=== PATIENT | male | born 1965 | race American Indian/Alaskan Native ===

== ENCOUNTER 2020-08-16 23:38 | Emergency (ER) | payer MEDICAID, OTHER ==
[2020-08-16] MEDS ORDERED: ALBUTEROL 2.5 MG/3 ML NEBU IH ONE (23:55)
[2020-08-16] MEDS ORDERED: IPRATROPIUM 0.02% NEBU 2.5 ML IH ONE (23:55)
[2020-08-16] MEDS ORDERED: predniSONE 20 MG TAB PO ONE (23:55)
--- NOTE | 2020-08-17 00:02 | Emergency Department Report ---
HPI - General Chief Complaint: Dyspnea/Respdistress Time Seen by Provider: 08/16/20 23:50 - HPI HPI: Room 23 Patient is a 55-year-old male present with a chief complaint of shortness of breath. Patient states he has a history of asthma and approximate 1 hour ago began to flareup. Patient states she developed shortness of breath which is consistent with his asthma. Patient states he uses MDI but it did not help. Patient admits to cough productive of yellow sputum occasionally today. Patient denies history of fever. 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 - Family History Family history: no significant - Social History Smoking Status: Former Smoker (None x1 month) Substance Use Type: None (Denies illicit drug use) - Medications Home Medications: Home Medications Medication Instructions Recorded Confirmed Last Taken Type Albuterol Mdi (or & Nicu Only) 2 puff IH QID PRN #8.5 gram 08/17/20 Unknown Rx [ProAir HFA Inhaler] Albuterol Sulfate [Albuterol 0.63% 0.63 mg IH TID PRN #75 ml 08/17/20 Unknown Rx NEBS] Azithromycin [Zithromax Z-PRIYANKA] 0 mg PO DAILY #6 tab 08/17/20 Unknown Rx Prednisone [predniSONE 10 mg 10 mg PO .TAPER #1 tab.ds.pk 08/17/20 Unknown Rx (6-Day Pack, 21 Tabs)] ED Review of Systems ROS: Stated complaint: TROUBLE BREATHING Other details as noted in HPI Constitutional: denies: fever Eyes: denies: eye pain ENT: denies: throat pain Respiratory: cough, shortness of breath, wheezing Cardiovascular: denies: chest pain Endocrine: no symptoms reported Gastrointestinal: denies: abdominal pain Genitourinary: denies: dysuria Musculoskeletal: denies: back pain Neurological: denies: headache Physical Exam - Physical Exam Physical Exam: GENERAL: The patient is well-developed well-nourished male lying on stretcher not appearing to be in acute distress. [] HEENT: Normocephalic. Atraumatic. Extraocular motions are intact. Patient has moist mucous membranes. NECK: Supple. Trachea midline CHEST/LUNGS: Occasional expiratory wheeze anteriorly. Diminished posteriorly. There is no respiratory distress noted. HEART/CARDIOVASCULAR: Regular. There is no tachycardia. There is no gallop rub or murmur. ABDOMEN: Abdomen is soft, nontender. Patient has normal bowel sounds. There is no abdominal distention. SKIN: There is no rash. There is no edema. There is no diaphoresis. NEURO: The patient is awake, alert, and oriented. The patient is cooperative. The patient has no focal neurologic deficits. The patient has normal speech MUSCULOSKELETAL: There is no evidence of acute injury. ED Course - Reevaluation(s) Reevaluation #1: 08/17/20 01:57 Patient states he feels better ED Medical Decision Making - Radiology Data Radiology results: report reviewed (Chest x-ray), image reviewed (Chest x-ray) interpreted by me: Chest x-ray-no focal infiltrates, no pneumothorax. No foreign body seen [facility] [address] [place] [address] XRay Report Signed Patient: BLAYNE MORGAN MR#: [id number] : 1965 Acct:[id number] Age/Sex: 55 / M ADM Date: 08/16/20 Loc: ED Attending Dr: Ordering Physician: CARROLL DUNN MD Date of Service: 08/16/20 Procedure(s): XR chest 1V ap Accession Number(s): [id number] cc: CARROLL DUNN MD Fluoro Time In Minutes: CHEST 1 VIEW INDICATION / CLINICAL INFORMATION: Shortness of breath, cough. COMPARISON: None available. FINDINGS: SUPPORT DEVICES: None. HEART / MEDIASTINUM: No significant abnormality. LUNGS / PLEURA: No significant pulmonary or pleural abnormality. No pneumothorax. ADDITIONAL FINDINGS: No significant additional findings. IMPRESSION: 1. No acute findings. Signer Name: Katelin Hall MD Signed: 08/17/2020 1:39 AM Workstation Name: [id number] Transcribed By: [facility] Dictated By: Katelin Hall MD Electronically Authenticated By: Katelin Hall MD Signed Date/Time: 08/17/20138 DD/ 7 TD/TT: Print Cancel - Differential Diagnosis Asthma exacerbation, bronchitis Critical care attestation.: If time is entered above; I have spent that time in minutes in the direct care of this critically ill patient, excluding procedure time. ED Disposition Clinical Impression: Acute asthma exacerbation, Bronchitis Disposition: TO HOME OR SELFCARE Is pt being admited?: No Does the pt Need Aspirin: No Condition: Stable Instructions: Chronic Bronchitis (ED), Cough, Adult, [id number], Asthma, Adult Additional Instructions: Return to the emergency department should you develop worsening symptoms, inability to tolerate food or liquids, high fever or any other concerns Prescriptions: Albuterol Sulfate [Albuterol 0.63% NEBS] 0.63 mg IH TID PRN #75 ml PRN Reason: Wheezing Prednisone [predniSONE 10 mg (6-Day Pack, 21 Tabs)] 10 mg PO .TAPER #1 tab.ds.pk Albuterol Mdi (or & Nicu Only) [ProAir HFA Inhaler] 2 puff IH QID PRN #8.5 gram PRN Reason: Shortness Of Breath Azithromycin [Zithromax Z-PRIYANKA] 0 mg PO DAILY #6 tab Referrals: [facility] [Provider Group] - 3-5 Days Time of Disposition: 01:59
--- NOTE | 2020-08-17 01:43 | XRay Report ---
CHEST 1 VIEW INDICATION / CLINICAL INFORMATION: Shortness of breath, cough. COMPARISON: None available. FINDINGS: SUPPORT DEVICES: None. HEART / MEDIASTINUM: No significant abnormality. LUNGS / PLEURA: No significant pulmonary or pleural abnormality. No pneumothorax. ADDITIONAL FINDINGS: No significant additional findings. IMPRESSION: 1. No acute findings. Signer Name: Katelin Hall MD Signed: 08/17/2020 1:39 AM Workstation Name: [id number]
[2020-08-17 03:32] VITALS: BP 168/94
== END 2020-08-17 02:20 | disposition home or self-care (01) ==
LOC: ED 23:38
DX: J45.901 Unspecified asthma with (acute) exacerbation (principal); I10 Essential (primary) hypertension; Z79.899 Other long term (current) drug therapy; Z87.891 Personal history of nicotine dependence; Z98.890 Other specified postprocedural states
CPT/HCPCS: 71045; 94640; 99283; J7512; 94644

== ENCOUNTER 2020-08-28 23:06 | Inpatient (IN) | payer MEDICAID, OTHER ==
[2020-08-28] MEDS ORDERED: IPRATROPIUM 0.02% NEBU 2.5 ML IH ONE (23:16)
[2020-08-28] MEDS ORDERED: ALBUTEROL 2.5 MG/3 ML NEBU IH ONE (23:16)
[2020-08-28] MEDS ORDERED: methylPREDNISolone Sod Succinate 125 MG/2 ML INJ IV ONE (23:16)
[2020-08-28] MEDS ORDERED: MAGNESIUM SULFATE 2 GM/50 ML BAG IV ONE (23:16)
--- NOTE | 2020-08-28 23:25 | Emergency Department Report ---
HPI - General Chief Complaint: Dyspnea/Respdistress Time Seen by Provider: 08/28/20 23:15 - HPI HPI: Room 7 The patient is a 55-year-old male present with a chief complaint of shortness of breath. Patient states today he developed shortness of breath consistent with his asthma. Patient admits to wheezing. Patient was seen by myself approximately 1.5 weeks ago for the same. The patient states he completed his course of antibiotics and steroids. 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 - Family History Family history: no significant - Social History Smoking Status: Unknown if ever smoked Substance Use Type: None - Medications Home Medications: Home Medications Medication Instructions Recorded Confirmed Last Taken Type Albuterol Mdi (or & Nicu Only) 2 puff IH QID PRN #8.5 gram 08/17/20 Unknown Rx [ProAir HFA Inhaler] Albuterol Sulfate [Albuterol 0.63% 0.63 mg IH TID PRN #75 ml 08/17/20 Unknown Rx NEBS] Azithromycin [Zithromax Z-PRIYANKA] 0 mg PO DAILY #6 tab 08/17/20 Unknown Rx Prednisone [predniSONE 10 mg 10 mg PO .TAPER #1 tab.ds.pk 08/17/20 Unknown Rx (6-Day Pack, 21 Tabs)] ED Review of Systems ROS: Stated complaint: ASTHMA;ZENAIDA Other details as noted in HPI Constitutional: no symptoms reported Eyes: denies: eye pain ENT: denies: throat pain Respiratory: shortness of breath, wheezing Cardiovascular: denies: chest pain Endocrine: no symptoms reported Gastrointestinal: denies: abdominal pain Genitourinary: denies: dysuria Musculoskeletal: denies: back pain Neurological: denies: headache Physical Exam - Physical Exam Vital Signs: Vital Signs 08/28/20 23:17 Temperature 98.7 F Pulse Rate 133 H Respiratory 22 Rate Blood Pressure 220/127 [Right] O2 Sat by Pulse 96 Oximetry Physical Exam: GENERAL: The patient is well-developed well-nourished male sitting on stretcher exhibiting increased work of breathing. [] HEENT: Normocephalic. Atraumatic. Extraocular motions are intact. Patient has moist mucous membranes. NECK: Supple. Trachea midline CHEST/LUNGS: Wheezing diffusely. Accessory muscle use HEART/CARDIOVASCULAR: Regular. There is tachycardia. There is no gallop rub or murmur. ABDOMEN: Abdomen is soft, nontender. Patient has normal bowel sounds. There is no abdominal distention. SKIN: There is no rash. There is no edema. There is no diaphoresis. NEURO: The patient is awake, alert, and oriented. The patient is cooperative. The patient has no focal neurologic deficits. The patient has normal speech MUSCULOSKELETAL: There is no evidence of acute injury. ED Course Vital Signs 08/28/20 23:17 Temperature 98.7 F Pulse Rate 133 H Respiratory 22 Rate Blood Pressure 220/127 [Right] O2 Sat by Pulse 96 Oximetry ED Medical Decision Making - Lab Data Result diagrams: 08/29/20 00:06 08/29/20 00:06 Laboratory Tests 08/29/20 08/29/20 00:06 00:06 WBC 9.7 RBC 4.53 Hgb 12.7 Hct 37.7 MCV 83 L MCH 28 MCHC 34 RDW 20.4 H Plt Count 496 H Sodium 140 Potassium 3.9 Chloride 100.8 Carbon Dioxide 24 Anion Gap 19 BUN 16 Creatinine 1.2 Estimated GFR > 60 BUN/Creatinine Ratio 13 Glucose 125 H Calcium 9.5 NT-Pro-B Natriuret Pep 173.2 - Radiology Data Radiology results: report reviewed (Chest x-ray), image reviewed (Chest x-ray) interpreted by me: Chest x-ray-no focal infiltrates, no pneumothorax. No foreign body seen [facility] [address] [place] [address] XRay Report Signed Patient: BLAYNE MORGAN MR#: [id number] : 1965 Acct:[id number] Age/Sex: 55 / M ADM Date: 08/28/20 Loc: ED Attending Dr: Ordering Physician: CARROLL DUNN MD Date of Service: 08/28/20 Procedure(s): XR chest 1V ap Accession Number(s): [id number] cc: CARROLL DUNN MD Fluoro Time In Minutes: CHEST 1 VIEW 08/28/2020 10:56 PM INDICATION / CLINICAL INFORMATION: Shortness of breath. COMPARISON: One view of the chest from 08/17/2020. FINDINGS: SUPPORT DEVICES: None. HEART / MEDIASTINUM: No significant abnormality. LUNGS / PLEURA: Clear lungs. No significant pleural effusion. No pneumothorax. ADDITIONAL FINDINGS: No significant additional findings. IMPRESSION: 1. No acute abnormality of the chest. Signer Name: Quincy Gloria MD Signed: 08/29/2020 12:04 AM Workstation Name: [id number] Transcribed By: [place] Dictated By: Quincy Gloria MD Electronically Authenticated By: Quincy Gloria MD Signed Date/Time: 08/29/203 DD/ TD/TT: Print Cancel - Differential Diagnosis Acute asthma exacerbation Critical care attestation.: If time is entered above; I have spent that time in minutes in the direct care of this critically ill patient, excluding procedure time. ED Disposition Clinical Impression: Acute asthma exacerbation, Shortness of breath Disposition: OP ADMIT IP TO THIS HOSP Is pt being admited?: Yes Does the pt Need Aspirin: No Condition: Fair Referrals: PRIMARY CARE, [Primary Care Provider] - 3-5 Days Time of Disposition: 00:58 (Hospitalist paged (Dr Mcconnell))
[2020-08-29] MEDS ORDERED: IPRATROPIUM 0.02% NEBU 2.5 ML IH ONE (00:03)
[2020-08-29] MEDS ORDERED: ALBUTEROL 2.5 MG/3 ML NEBU IH ONE ×3 (00:03→15:17)
--- NOTE | 2020-08-29 00:09 | XRay Report ---
CHEST 1 VIEW 08/28/2020 10:56 PM INDICATION / CLINICAL INFORMATION: Shortness of breath. COMPARISON: One view of the chest from 08/17/2020. FINDINGS: SUPPORT DEVICES: None. HEART / MEDIASTINUM: No significant abnormality. LUNGS / PLEURA: Clear lungs. No significant pleural effusion. No pneumothorax. ADDITIONAL FINDINGS: No significant additional findings. IMPRESSION: 1. No acute abnormality of the chest. Signer Name: Quincy Gloria MD Signed: 08/29/2020 12:04 AM Workstation Name: [id number]
[2020-08-29 00:26] LABS: Hematocrit 37.7 % (35.5-45.6); Hemoglobin 12.7 gm/dl (11.8-15.2); Mean Corpuscular HGB Conc 34 % (32-34); Mean Corpuscular Volume 83 fl (84-94); Platelet Count 496 K/mm3 (140-440); Red Blood Count 4.53 M/mm3 (3.65-5.03)
[2020-08-29 00:31] LABS: Red Cell Distribution Width 20.4 % (13.2-15.2)
[2020-08-29 00:46] LABS: BUN/Creatinine Ratio 13; Blood Urea Nitrogen 16 mg/dL (9-20); Calcium 9.5 mg/dL (8.4-10.2); Hemolysis Index 3
[2020-08-29] MEDS ORDERED: ONDANSETRON 4 MG/2 ML INJ IV PRN (01:20)
[2020-08-29] MEDS ORDERED: MAGNESIUM HYDROXIDE (MOM) ORAL LIQD UDC PO PRN (01:20)
[2020-08-29] MEDS ORDERED: ACETAMINOPHEN 325 MG TAB PO PRN (01:20)
--- NOTE | 2020-08-29 01:30 | History and Physical Report ---
History of Present Illness Date of examination: 08/29/20 Date of admission: 08/29/2020 Chief complaint: Shortness of breath History of present illness: 55-year-old -Malawian male with known history of of asthma and hypertension presents to the emergency room today complaining of shortness of breath. Patient denies any chest pain, denies any fever or chills, no nausea vomiting, no diarrhea, no abdominal pain. Denies any headache or dizziness and denies any diaphoresis. He denies any sick contacts and no recent travel. Denies any contact with anyone with COVID-19. Upon arrival in the emergency room today patient was found to be wheezing and was having some labored breathing. He was subsequently placed on BiPAP. He continued to have increased work of breathing while in the emergency room despite the nebulizing treatments. Work-up in the emergency room today labs were unremarkable. Chest x-ray did not show any acute findings.. Patient has been admitted for asthma exacerbation. Past History Past Medical History: hypertension, other (Asthma) Past Surgical History: Other (Left lower extremity bypass surgery) Social history: smoking (Current daily smoker) Family history: no significant family history Medications and Allergies Allergies Allergy/AdvReac Type Severity Reaction Status Date / Time No Known Allergies Allergy Verified 08/16/20 23:42 Home Medications Medication Instructions Recorded Confirmed Last Taken Type Albuterol Mdi (or & Nicu Only) 2 puff IH QID PRN #8.5 gram 08/17/20 Unknown Rx [ProAir HFA Inhaler] Albuterol Sulfate [Albuterol 0.63% 0.63 mg IH TID PRN #75 ml 08/17/20 Unknown Rx NEBS] Azithromycin [Zithromax Z-PRIYANKA] 0 mg PO DAILY #6 tab 08/17/20 Unknown Rx Prednisone [predniSONE 10 mg 10 mg PO .TAPER #1 tab.ds.pk 08/17/20 Unknown Rx (6-Day Pack, 21 Tabs)] Review of Systems Constitutional: no fever, no chills Ears, nose, mouth and throat: no nasal congestion, no sore throat Cardiovascular: no chest pain, no orthopnea, no palpitations Respiratory: cough, cough with sputum, shortness of breath, wheezing Gastrointestinal: no nausea, no vomiting, no diarrhea Genitourinary Male: no dysuria, no hematuria, no nocturia, no polyuria Musculoskeletal: no neck pain, no low back pain Integumentary: no rash, no pruritis Neurological: no headaches, no confusion Psychiatric: no anxiety, no depression Endocrine: no polyphagia, no polydipsia, no polyuria, no nocturia Exam - Constitutional Vitals: Temp Pulse Resp BP Pulse Ox 98.7 F 133 H 36 H 151/111 98 08/28/20 23:17 08/29/20 00:46 08/29/20 00:46 08/28/20 23:58 08/29/20 00:46 General appearance: Present: mild distress, well-nourished - EENT Eyes: Present: PERRL, EOM intact. Absent: scleral icterus ENT: hearing intact, clear oral mucosa, dentition normal - Neck Neck: Present: supple, normal ROM - Respiratory Respiratory effort: labored Respiratory: bilateral: wheezing - Cardiovascular Rhythm: regular Heart Sounds: Present: S1 & S2. Absent: systolic murmur, diastolic murmur, rub, click - Extremities Extremities: no ischemia, pulses intact, pulses symmetrical, No edema, normal temperature, normal color, Full ROM Peripheral Pulses: within normal limits - Abdominal General gastrointestinal: Present: soft, non-tender, non-distended. Absent: mass - Integumentary Integumentary: Present: clear, warm, dry, rash, normal turgor - Musculoskeletal Musculoskeletal: strength equal bilaterally - Psychiatric Psychiatric: appropriate mood/affect, intact judgment & insight, memory intact, cooperative - Neurologic Neurologic: CNII-XII intact, no focal deficits, moves all extremities Results - Labs CBC & Chem 7: 08/29/20 00:06 08/29/20 00:06 Labs: Abnormal lab results 08/29/20 08/29/20 Range/Units 00:06 00:06 MCV 83 L (84-94) fl RDW 20.4 H (13.2-15.2) % Plt Count 496 H (140-440) K/mm3 Glucose 125 H (75-100) mg/dL Assessment and Plan - Patient Problems (1) Acute asthma exacerbation Current Visit: Yes Status: Acute Plan to address problem: Patient placed on nebulizing treatments and IV steroid. We will keep O2 saturation greater or equal to 92%. (2) Hypertension Current Visit: Yes Status: Acute Plan to address problem: We will resume routine home medications and monitor vital signs closely. (3) DVT prophylaxis Current Visit: Yes Status: Acute Plan to address problem: Patient placed on subcutaneous Lovenox. (4) Full code status Current Visit: Yes Status: Acute Plan to address problem: Patient is full code.
[2020-08-29] MEDS: IPRATROPIUM/ALBUTEROL SULFATE 3 ML AMPUL.NEB IH SCH ×6 (03:24→20:09)
[2020-08-29 03:38] LABS: Anisocytosis 1+; Band Neutrophils # (Manual) 0.1 K/mm3; Total Cells Counted 100
[2020-08-29 03:39] LABS: Platelet Estimate Consistent w Auto
[2020-08-29] MEDS: ALPRAZolam 0.25 MG TAB PO SCH ×3 (03:50→22:08)
[2020-08-29] MEDS: MORPHINE 2 MG/1 ML INJ IV PRN ×5 (04:11→20:36)
[2020-08-29] MEDS ORDERED: methylPREDNISolone Sod Succinate 40 MG/1 ML INJ IV SCH (06:00)
[2020-08-29] MEDS: BUDESONIDE 0.5 MG/2 ML NEBU IH SCH ×2 (08:20→20:09)
[2020-08-29] MEDS ORDERED: ALBUTEROL 2.5 MG/3 ML NEBU IH SCH (10:21)
--- NOTE | 2020-08-29 10:22 | Progress Note ---
Assessment and Plan Assessment and plan: #Acute hypoxic respiratory failure Continue BiPAP Wean as tolerated #Acute asthma exacerbation Increase methylprednisolone to 80 mg every 6 Albuterol every 4 scheduled Continue oxygen supplementation Pulmonology consulted Respiratory therapy assess and treat #Hypertension Continue home medications #DVT prophylaxis-heparin/Lovenox #Disposition-Home when stable for discharge History Interval history: 55-year-old -Marshallese male with known history of of asthma and hypertension presents to the emergency room today complaining of shortness of breath. Patient denies any chest pain, denies any fever or chills, no nausea vomiting, no diarrhea, no abdominal pain. Denies any headache or dizziness and denies any diaphoresis. He denies any sick contacts and no recent travel. Denies any contact with anyone with COVID-19. Upon arrival in the emergency room today patient was found to be wheezing and was having some labored breathing. He was subsequently placed on BiPAP. He continued to have increased work of breathing while in the emergency room despite the nebulizing treatments. Work-up in the emergency room today labs were unremarkable. Chest x-ray did not show any acute findings.. Patient has been admitted for asthma exacerbation. Hospital course 08/29. Patient seen and examined at bedside this morning. Patient is still wheezing. Remains on BiPAP. Increase steroids to 80 mg every 6. Pulmonology consulted. Started patient on albuterol every 4 scheduled. May need to transfer to [facility] if no improve in the next 3 to 4 hours. Hospitalist Physical - Physical exam Narrative exam: VITAL SIGNS: Reviewed. GENERAL: Awake HEAD: No signs of head trauma. EYES: Pupils are equal. Extraocular motions intact. MOUTH: Oropharynx is normal. NECK: No adenopathy, no JVD. CHEST: Diminished breath sounds bilaterally, diffuse expiratory wheezes CARDIAC: normal S1 and S2, without murmurs, gallops, or rubs. ABDOMEN: Soft, non tender and non distended. No rebound or guarding, and no masses palpated. Bowel Sounds normal. MUSCULOSKELETAL: No edema NEUROLOGIC EXAM: Alert and oriented x3. No focal neurologic deficits SKIN: No obvious lesions - Constitutional Vitals: Temp Pulse Resp BP Pulse Ox 98.4 F 101 H 36 H 194/115 99 08/29/20 04:47 08/29/20 08:21 08/29/20 08:21 08/29/20 04:47 08/29/20 08:21 Results - Labs CBC & Chem 7: 08/29/20 00:06 08/29/20 00:06 Labs: Laboratory Last Values WBC 9.7 K/mm3 (4.5-11.0) 08/29/20 00:06 RBC 4.53 M/mm3 (3.65-5.03) 08/29/20 00:06 Hgb 12.7 gm/dl (11.8-15.2) 08/29/20 00:06 Hct 37.7 % (35.5-45.6) 08/29/20 00:06 MCV 83 fl (84-94) L 08/29/20 00:06 MCH 28 pg (28-32) 08/29/20 00:06 MCHC 34 % (32-34) 08/29/20 00:06 RDW 20.4 % (13.2-15.2) H 08/29/20 00:06 Plt Count 496 K/mm3 (140-440) H 08/29/20 00:06 Add Manual Diff Complete 08/29/20 00:06 Total Counted 100 08/29/20 00:06 Seg Neuts % (Manual) 85.0 % (40.0-70.0) H 08/29/20 00:06 Band Neutrophils % 1.0 % 08/29/20 00:06 Lymphocytes % (Manual) 12.0 % (13.4-35.0) L 08/29/20 00:06 Monocytes % (Manual) 2.0 % (0.0-7.3) 08/29/20 00:06 Nucleated RBC % Not Reportable 08/29/20 00:06 Seg Neutrophils # Man 8.2 K/mm3 (1.8-7.7) H 08/29/20 00:06 Band Neutrophils # 0.1 K/mm3 08/29/20 00:06 Lymphocytes # (Manual) 1.2 K/mm3 (1.2-5.4) 08/29/20 00:06 Abs React Lymphs (Man) 0.0 K/mm3 08/29/20 00:06 Monocytes # (Manual) 0.2 K/mm3 (0.0-0.8) 08/29/20 00:06 Eosinophils # (Manual) 0.0 K/mm3 (0.0-0.4) 08/29/20 00:06 Basophils # (Manual) 0.0 K/mm3 (0.0-0.1) 08/29/20 00:06 Metamyelocytes # 0.0 K/mm3 08/29/20 00:06 Myelocytes # 0.0 K/mm3 08/29/20 00:06 Promyelocytes # 0.0 K/mm3 08/29/20 00:06 Blast Cells # 0.0 K/mm3 08/29/20 00:06 WBC Morphology Not Reportable 08/29/20 00:06 Hypersegmented Neuts Not Reportable 08/29/20 00:06 Hyposegmented Neuts Not Reportable 08/29/20 00:06 Hypogranular Neuts Not Reportable 08/29/20 00:06 Smudge Cells Not Reportable 08/29/20 00:06 Toxic Granulation Not Reportable 08/29/20 00:06 Toxic Vacuolation Not Reportable 08/29/20 00:06 Dohle Bodies Not Reportable 08/29/20 00:06 Pelger-Huet Anomaly Not Reportable 08/29/20 00:06 Galo Rods Not Reportable 08/29/20 00:06 Platelet Estimate Consistent w auto 08/29/20 00:06 Clumped Platelets Not Reportable 08/29/20 00:06 Plt Clumps, EDTA Not Reportable 08/29/20 00:06 Large Platelets Not Reportable 08/29/20 00:06 Giant Platelets Not Reportable 08/29/20 00:06 Platelet Satelliting Not Reportable 08/29/20 00:06 Plt Morphology Comment Not Reportable 08/29/20 00:06 RBC Morphology Not Reportable 08/29/20 00:06 Dimorphic RBCs Not Reportable 08/29/20 00:06 Polychromasia Not Reportable 08/29/20 00:06 Hypochromasia Not Reportable 08/29/20 00:06 Poikilocytosis Not Reportable 08/29/20 00:06 Anisocytosis 1+ 08/29/20 00:06 Microcytosis Not Reportable 08/29/20 00:06 Macrocytosis Not Reportable 08/29/20 00:06 Spherocytes Not Reportable 08/29/20 00:06 Pappenheimer Bodies Not Reportable 08/29/20 00:06 Sickle Cells Not Reportable 08/29/20 00:06 Target Cells Not Reportable 08/29/20 00:06 Tear Drop Cells Not Reportable 08/29/20 00:06 Ovalocytes Not Reportable 08/29/20 00:06 Helmet Cells Not Reportable 08/29/20 00:06 Nieto-Veblen Bodies Not Reportable 08/29/20 00:06 [place] Rings Not Reportable 08/29/20 00:06 [place] Cells Not Reportable 08/29/20 00:06 Bite Cells Not Reportable 08/29/20 00:06 Crenated Cell Not Reportable 08/29/20 00:06 Elliptocytes Not Reportable 08/29/20 00:06 Acanthocytes (Spur) Not Reportable 08/29/20 00:06 Rouleaux Not Reportable 08/29/20 00:06 Hemoglobin C Crystals Not Reportable 08/29/20 00:06 Schistocytes Not Reportable 08/29/20 00:06 Malaria parasites Not Reportable 08/29/20 00:06 Lobo Bodies Not Reportable 08/29/20 00:06 Hem Pathologist Commnt No 08/29/20 00:06 Sodium 140 mmol/L (137-145) 08/29/20 00:06 Potassium 3.9 mmol/L (3.6-5.0) 08/29/20 00:06 Chloride 100.8 mmol/L (98-107) 08/29/20 00:06 Carbon Dioxide 24 mmol/L (22-30) 08/29/20 00:06 Anion Gap 19 mmol/L 08/29/20 00:06 BUN 16 mg/dL (9-20) 08/29/20 00:06 Creatinine 1.2 mg/dL (0.8-1.3) 08/29/20 00:06 Estimated GFR > 60 ml/min 08/29/20 00:06 BUN/Creatinine Ratio 13 % 08/29/20 00:06 Glucose 125 mg/dL (75-100) H 08/29/20 00:06 Calcium 9.5 mg/dL (8.4-10.2) 08/29/20 00:06 NT-Pro-B Natriuret Pep 173.2 pg/mL (0-900) 08/29/20 00:06 Active Medications - Current Medications Current Medications: Generic Name Dose Route Start Last Admin Trade Name Freq PRN Reason Stop Dose Admin Acetaminophen 650 mg 08/29/20 01:20 Acetaminophen 325 Mg Tab PO Q4H PRN Pain MILD(1-3)/Fever >100.5/ARRIAZA Albuterol 2.5 mg 08/29/20 10:21 Albuterol 2.5 Mg/3 Ml Nebu IH Q4HRT CAROLE Albuterol/Ipratropium 1 ampul 08/29/20 02:00 08/29/20 08:16 Ipratropium/Albuterol Sulfate 3 Ml Ampul.Neb IH 1 ampul Q6HRT [facility] Administration Alprazolam 0.25 mg 08/29/20 03:50 08/29/20 03:50 Alprazolam 0.25 Mg Tab PO 0.25 mg Q12HR CAROLE Administration Budesonide 0.5 mg 08/29/20 08:00 08/29/20 08:20 Budesonide 0.5 Mg/2 Ml Nebu IH 0.5 mg Q12HRT CAROLE Administration Enoxaparin Sodium 40 mg 08/29/20 22:00 Enoxaparin 40 Mg/0.4 Ml Inj SUB-Q QDAY@2200 [facility] Protocol Magnesium Hydroxide 30 ml 08/29/20 01:20 Magnesium Hydroxide (Mom) Oral Liqd Udc PO Q4H PRN Constipation Methylprednisolone Sodium Succinate 80 mg 08/29/20 11:00 Methylprednisolone Sod Succinate 40 Mg/1 Ml Inj IV Q6HR [facility] Morphine Sulfate 2 mg 08/29/20 01:20 08/29/20 08:16 Morphine 2 Mg/1 Ml Inj IV 2 mg Q4H PRN Administration Pain, Moderate (4-6) Ondansetron HCl 4 mg 08/29/20 01:20 Ondansetron 4 Mg/2 Ml Inj IV Q8H PRN Nausea And Vomiting Sodium Chloride 10 ml 08/29/20 10:00 Sodium Chloride 0.9% 10 Ml Flush Syringe IV BID CAROLE Sodium Chloride 10 ml 08/29/20 01:20 Sodium Chloride 0.9% 10 Ml Flush Syringe IV PRN PRN LINE FLUSH
--- NOTE | 2020-08-29 11:48 | Consultation ---
History of Present Illness History of present illness: This is apatient who resides in [facility] and is here to visit son. He had increased in sob. He was seen in er earlier this month. He was treated w steroids and antibx. He did slightly better but came in with worsening sob and cough. He was admitted and is presently on BIPAP. He reports that he has never been intubated. He smoked 1ppd at peak consumption, now only 1/2 ppd. No leg swelling. Past History Past Medical History: COPD, hypertension, other (Asthma) Past Surgical History: No surgical history, Other (Left lower extremity bypass surgery) Social history: lives with family, smoking (Current daily smoker) Family history: no significant family history Medications and Allergies Allergies Allergy/AdvReac Type Severity Reaction Status Date / Time No Known Allergies Allergy Verified 08/16/20 23:42 Home Medications Medication Instructions Recorded Confirmed Last Taken Type Albuterol Mdi (or & Nicu Only) 2 puff IH QID PRN #8.5 gram 08/17/20 Unknown Rx [ProAir HFA Inhaler] Albuterol Sulfate [Albuterol 0.63% 0.63 mg IH TID PRN #75 ml 08/17/20 Unknown Rx NEBS] Azithromycin [Zithromax Z-PRIYANKA] 0 mg PO DAILY #6 tab 08/17/20 Unknown Rx Prednisone [predniSONE 10 mg 10 mg PO .TAPER #1 tab.ds.pk 08/17/20 Unknown Rx (6-Day Pack, 21 Tabs)] ALPRAZolam [Xanax TAB] 0.25 mg PO BID PRN 08/29/20 08/29/20 Unknown History Clopidogrel [Plavix] 08/29/20 Unknown History Vitamin D3 08/29/20 Unknown History lisinopriL [Zestril TAB] 40 mg PO QDAY 08/29/20 08/29/20 Unknown History Active Meds: Active Medications Acetaminophen (Acetaminophen 325 Mg Tab) 650 mg PO Q4H PRN PRN Reason: Pain MILD(1-3)/Fever >100.5/ARRIAZA Albuterol/Ipratropium (Ipratropium/Albuterol Sulfate 3 Ml Ampul.Neb) 1 ampul IH Q6HRT CAROLE Last Admin: 08/29/20 08:16 Dose: 1 ampul Documented by: Alprazolam (Alprazolam 0.25 Mg Tab) 0.25 mg PO Q12HR [facility] Last Admin: 08/29/20 10:33 Dose: 0.25 mg Documented by: Budesonide (Budesonide 0.5 Mg/2 Ml Nebu) 0.5 mg IH Q12HRT [facility] Last Admin: 08/29/20 08:20 Dose: 0.5 mg Documented by: Enoxaparin Sodium (Enoxaparin 40 Mg/0.4 Ml Inj) 40 mg SUB-Q QDAY@2200 [facility]; Protocol Magnesium Hydroxide (Magnesium Hydroxide (Mom) Oral Liqd Udc) 30 ml PO Q4H PRN PRN Reason: Constipation Methylprednisolone Sodium Succinate (Methylprednisolone Sod Succinate 125 Mg/2 Ml Inj) 80 mg IV Q6HR CAROLE Morphine Sulfate (Morphine 2 Mg/1 Ml Inj) 2 mg IV Q4H PRN PRN Reason: Pain, Moderate (4-6) Last Admin: 08/29/20 08:16 Dose: 2 mg Documented by: Ondansetron HCl (Ondansetron 4 Mg/2 Ml Inj) 4 mg IV Q8H PRN PRN Reason: Nausea And Vomiting Sodium Chloride (Sodium Chloride 0.9% 10 Ml Flush Syringe) 10 ml IV BID [facility] Last Admin: 08/29/20 10:33 Dose: 10 ml Documented by: Sodium Chloride (Sodium Chloride 0.9% 10 Ml Flush Syringe) 10 ml IV PRN PRN PRN Reason: LINE FLUSH Review of Systems Respiratory: cough, shortness of breath, other (questionable pleurisy) Physical Examination Vital signs: Vital Signs Resp Pulse Ox 14 98 08/28/20 22:02 08/28/20 22:02 General appearance: other (on bipap mild distress) ENT: oropharynx moist Neck: supple Ascultation: Bilateral: diminished breath sounds, wheezes Results - Laboratory Findings CBC and BMP: 08/29/20 00:06 08/29/20 00:06 Abnormal lab findings: Abnormal Labs 08/29/20 08/29/20 00:06 00:06 MCV 83 L RDW 20.4 H Plt Count 496 H Seg Neuts % (Manual) 85.0 H Lymphocytes % (Manual) 12.0 L Seg Neutrophils # Man 8.2 H Glucose 125 H - Diagnostic Findings Chest x-ray: report reviewed, image reviewed Assessment and Plan - Patient Problems (1) Acute bronchitis Current Visit: Yes Status: Acute (2) Acute asthma exacerbation Current Visit: Yes Status: Acute (3) Hypertension Current Visit: Yes Status: Acute (4) Shortness of breath Current Visit: Yes Status: Acute
[2020-08-29] MEDS ORDERED: methylPREDNISolone Sod Succinate 125 MG/2 ML INJ IV SCH (12:00)
[2020-08-29] MEDS ORDERED: SODIUM CHLORIDE 0.9% 1000 ML 1,000 ML IV SCH (12:00)
[2020-08-29] MEDS ORDERED: ENOXAPARIN 80 MG/0.8 ML INJ SUB-Q ONE (13:00)
[2020-08-29] MEDS ORDERED: HEPARIN 10,000 UNITS/10 ML VIAL IV PRN (17:36)
[2020-08-29] MEDS: methylPREDNISolone Sod Succinate 125 MG/2 ML INJ IV SCH (18:00)
[2020-08-29] MEDS ORDERED: FUROSEMIDE 40 MG/4 ML INJ IV ONE (18:39)
[2020-08-29 19:13] LABS: C-Reactive Protein 1.5 mg/dL (0.00-1.30)
[2020-08-29 19:14] LABS: INR 1.08 (0.87-1.13)
[2020-08-29 19:15] LABS: Partial Thromboplastin Time 34.5 Sec. (24.2-36.6)
[2020-08-29] MEDS ORDERED: hydrALAZINE 20 MG/1 ML INJ IV PRN (19:53)
[2020-08-29] MEDS: ARFORMOTEROL 15 MCG/2 ML NEBU IH SCH (20:10)
[2020-08-29] MEDS ORDERED: ENOXAPARIN 40 MG/0.4 ML INJ SUB-Q SCH (22:00)
[2020-08-29] MEDS: LISINOPRIL 40 MG TAB PO SCH (22:08)
[2020-08-30] MEDS ORDERED: IPRATROPIUM/ALBUTEROL SULFATE 3 ML AMPUL.NEB IH SCH
[2020-08-30] MEDS ORDERED: dilTIAZem 25 MG/5 ML INJ IV ONE (00:15)
[2020-08-30] MEDS: MORPHINE 2 MG/1 ML INJ IV PRN ×5 (00:36→21:29)
[2020-08-30] MEDS: methylPREDNISolone Sod Succinate 125 MG/2 ML INJ IV SCH ×4 (00:38→17:40)
[2020-08-30] MEDS: IPRATROPIUM/ALBUTEROL SULFATE 3 ML AMPUL.NEB IH SCH ×2 (04:05→07:45)
[2020-08-30] MEDS ORDERED: ALBUTEROL 2.5 MG/3 ML NEBU IH ONE ×2 (06:24→06:51)
[2020-08-30] MEDS: hydrALAZINE 25 MG TAB PO SCH ×3 (07:28→21:29)
--- NOTE | 2020-08-30 07:29 | Event Note ---
Date: 08/30/20 called by respiratory therapist that patient Stephen has severe shortness of breath while on BIPAP patient was admitted with SOB and asthma exacerbation. patient has Hx of intubation. Patient 02 sat is stable on BIPAP but patient continue to have severe SOB. Patient is transfered to ICU for closed monitoring. Supervisor Cereal Consulted. patient also has elevated blood pressure. Patient started on antihypertensive and PRN IV hydralazine.
[2020-08-30] MEDS: ARFORMOTEROL 15 MCG/2 ML NEBU IH SCH (07:45)
[2020-08-30] MEDS: BUDESONIDE 0.5 MG/2 ML NEBU IH SCH ×2 (07:45→21:10)
[2020-08-30 07:59] LABS: Basophils % (Auto) 0.1 % (0.0-1.8); Hematocrit 41.3 % (35.5-45.6); Hemoglobin 13.9 gm/dl (11.8-15.2); Lymphocytes # (Auto) 0.7 K/mm3 (1.2-5.4); Lymphocytes % (Auto) 7.1 % (13.4-35.0); Mean Corpuscular HGB Conc 34 % (32-34); Mean Corpuscular Volume 84 fl (84-94); Monocytes # (Auto) 0.5 K/mm3 (0.0-0.8); Platelet Count 560 K/mm3 (140-440); Red Cell Distribution Width 19.8 % (13.2-15.2)
[2020-08-30 08:05] LABS: INR 1.09 (0.87-1.13)
[2020-08-30 08:18] LABS: BUN/Creatinine Ratio 31; Blood Urea Nitrogen 34 mg/dL (9-20); Calcium 9.6 mg/dL (8.4-10.2); Hemolysis Index 0
--- NOTE | 2020-08-30 08:54 | XRay Report ---
CHEST 1 VIEW 08/30/2020 7:41 AM INDICATION / CLINICAL INFORMATION: Hypoxia. COMPARISON: 08/28/2020 FINDINGS: SUPPORT DEVICES: None. HEART / MEDIASTINUM: Stable. LUNGS / PLEURA: No significant pulmonary or pleural abnormality. No pneumothorax. ADDITIONAL FINDINGS: No significant additional findings. IMPRESSION: 1. No acute findings. No significant interval change since 08/28/2020 Signer Name: Gary Heaton MD Signed: 08/30/2020 8:50 AM Workstation Name: [email or web address]
[2020-08-30 09:35] LABS: Hematocrit 30.3 % (35.5-45.6); Hemoglobin 10.1 gm/dl (11.8-15.2)
[2020-08-30] MEDS: LISINOPRIL 40 MG TAB PO SCH (09:38)
[2020-08-30] MEDS: HEPARIN/ 0.45% NACL DRIP 25,000 UNIT/500 ML BAG IV SCH (09:38)
[2020-08-30] MEDS: ALPRAZolam 0.25 MG TAB PO SCH (09:38)
[2020-08-30] MEDS ORDERED: METOPROLOL TARTRATE 50 MG TAB PO SCH (10:00)
--- NOTE | 2020-08-30 10:02 | Progress Note ---
Assessment and Plan Assessment and plan: #Acute hypoxic respiratory failure Continue BiPAP #Acute asthma exacerbation Remains on BiPAP Continue methylprednisolone Continue albuterol Continue oxygen supplementation Pulmonology recommendations appreciated Respiratory therapy assess and treat Chest x-ray negative for any acute pathology Discussed with stand grinder #Elevated D-dimer Start empirically on heparin drip for possible PE as he cannot get CT PE due to him being on BiPAP Ultrasound lower extremity Doppler pending #Hypertension Started on IV medications Continue to monitor closely #Right inguinal hernia Complains of right inguinal hernia pain No signs of bowel obstruction Surgery consulted. #DVT prophylaxis-on heparin drip for possible PE #Disposition-Home when stable for discharge Critical care statement The high probability OF a clinically significant sudden or life-threatening deterioration of the cardiorespiratory system and endocrine system required my full and direct attention, intervention and postoperative management. The aggregate critical care time was 40 minutes. The time is in addition to time spent performing reported procedures but includes the followin: Data review and interpretation 2: Patient assessment and monitoring of vital signs 3: Documentation 4:: Medication orders and management Advance Directives: Yes (Full code) History Interval history: 55-year-old -[place] male with known history of of asthma and hy pertension presents to the emergency room today complaining of shortness of breath. Patient denies any chest pain, denies any fever or chills, no nausea vomiting, no diarrhea, no abdominal pain. Denies any headache or dizziness and denies any diaphoresis. He denies any sick contacts and no recent travel. Denies any contact with anyone with COVID-19. Upon arrival in the emergency room today patient was found to be wheezing and was having some labored breathing. He was subsequently placed on BiPAP. He continued to have increased work of breathing while in the emergency room despite the nebulizing treatments. Work-up in the emergency room today labs were unremarkable. Chest x-ray did not show any acute findings.. Patient has been admitted for asthma exacerbation. Hospital course 08/29. Patient seen and examined at bedside this morning. Patient is still wheezing. Remains on BiPAP. Increase steroids to 80 mg every 6. Pulmonology consulted. Started patient on albuterol every 4 scheduled. May need to transfer to [facility] if no improve in the next 3 to 4 hours. 08/30. Still remains on BiPAP. Remains on bronchodilators and Solu-Medrol 100 q. 6. Blood pressure elevated so has been started on IV blood pressure medications. Pulmonology is following. Patient may need intubation if not improved. Discussed with stand grinder this a.m. He complains of right inguinal pain. Will consult surgery for evaluation. He has no signs of bowel obstruction Hospitalist Physical - Physical exam Narrative exam: VITAL SIGNS: Reviewed. GENERAL: Awake HEAD: No signs of head trauma. EYES: Pupils are equal. Extraocular motions intact. MOUTH: Oropharynx is normal. NECK: No adenopathy, no JVD. CHEST: Diminished breath sounds bilaterally, some wheezes bilaterally CARDIAC: normal S1 and S2, without murmurs, gallops, or rubs. ABDOMEN: Soft, non tender and non distended. No rebound or guarding, and no masses palpated. Bowel Sounds normal. MUSCULOSKELETAL: No edema NEUROLOGIC EXAM: Alert and oriented x3. No focal neurologic deficits SKIN: No obvious lesions - Constitutional Vitals: Temp Pulse Resp BP Pulse Ox 98.9 F 132 H 41 H 135/53 97 08/29/20 22:46 08/30/20 09:38 08/30/20 08:55 08/30/20 09:38 08/30/20 08:55 Results - Labs CBC & Chem 7: 08/30/20 11:25 08/30/20 07:10 Labs: Laboratory Last Values WBC 10.3 K/mm3 (4.5-11.0) 08/30/20 07:10 RBC 4.90 M/mm3 (3.65-5.03) 08/30/20 07:10 Hgb 10.1 gm/dl (11.8-15.2) L D 08/30/20 08:30 Hct 30.3 % (35.5-45.6) L D 08/30/20 08:30 MCV 84 fl (84-94) 08/30/20 07:10 MCH 28 pg (28-32) 08/30/20 07:10 MCHC 34 % (32-34) 08/30/20 07:10 RDW 19.8 % (13.2-15.2) H 08/30/20 07:10 Plt Count 84 K/mm3 (140-440) L 08/30/20 08:30 Lymph % (Auto) 7.1 % (13.4-35.0) L 08/30/20 07:10 [place] % (Auto) 5.0 % (0.0-7.3) 08/30/20 07:10 Eos % (Auto) 0.0 % (0.0-4.3) 08/30/20 07:10 Baso % (Auto) 0.1 % (0.0-1.8) 08/30/20 07:10 Lymph # (Auto) 0.7 K/mm3 (1.2-5.4) L 08/30/20 07:10 [place] # (Auto) 0.5 K/mm3 (0.0-0.8) 08/30/20 07:10 Eos # (Auto) 0.0 K/mm3 (0.0-0.4) 08/30/20 07:10 Baso # (Auto) 0.0 K/mm3 (0.0-0.1) 08/30/20 07:10 Add Manual Diff Complete 08/29/20 00:06 Total Counted 100 08/29/20 00:06 Seg Neutrophils % 87.8 % (40.0-70.0) H 08/30/20 07:10 Seg Neuts % (Manual) 85.0 % (40.0-70.0) H 08/29/20 00:06 Band Neutrophils % 1.0 % 08/29/20 00:06 Lymphocytes % (Manual) 12.0 % (13.4-35.0) L 08/29/20 00:06 Monocytes % (Manual) 2.0 % (0.0-7.3) 08/29/20 00:06 Nucleated RBC % Not Reportable 08/29/20 00:06 Seg Neutrophils # 9.0 K/mm3 (1.8-7.7) H 08/30/20 07:10 Seg Neutrophils # Man 8.2 K/mm3 (1.8-7.7) H 08/29/20 00:06 Band Neutrophils # 0.1 K/mm3 08/29/20 00:06 Lymphocytes # (Manual) 1.2 K/mm3 (1.2-5.4) 08/29/20 00:06 Abs React Lymphs (Man) 0.0 K/mm3 08/29/20 00:06 Monocytes # (Manual) 0.2 K/mm3 (0.0-0.8) 08/29/20 00:06 Eosinophils # (Manual) 0.0 K/mm3 (0.0-0.4) 08/29/20 00:06 Basophils # (Manual) 0.0 K/mm3 (0.0-0.1) 08/29/20 00:06 Metamyelocytes # 0.0 K/mm3 08/29/20 00:06 Myelocytes # 0.0 K/mm3 08/29/20 00:06 Promyelocytes # 0.0 K/mm3 08/29/20 00:06 Blast Cells # 0.0 K/mm3 08/29/20 00:06 WBC Morphology Not Reportable 08/29/20 00:06 Hypersegmented Neuts Not Reportable 08/29/20 00:06 Hyposegmented Neuts Not Reportable 08/29/20 00:06 Hypogranular Neuts Not Reportable 08/29/20 00:06 Smudge Cells Not Reportable 08/29/20 00:06 Toxic Granulation Not Reportable 08/29/20 00:06 Toxic Vacuolation Not Reportable 08/29/20 00:06 Dohle Bodies Not Reportable 08/29/20 00:06 Pelger-Huet Anomaly Not Reportable 08/29/20 00:06 Galo Rods Not Reportable 08/29/20 00:06 Platelet Estimate Consistent w auto 08/29/20 00:06 Clumped Platelets Not Reportable 08/29/20 00:06 Plt Clumps, EDTA Not Reportable 08/29/20 00:06 Large Platelets Not Reportable 08/29/20 00:06 Giant Platelets Not Reportable 08/29/20 00:06 Platelet Satelliting Not Reportable 08/29/20 00:06 Plt Morphology Comment Not Reportable 08/29/20 00:06 RBC Morphology Not Reportable 08/29/20 00:06 Dimorphic RBCs Not Reportable 08/29/20 00:06 Polychromasia Not Reportable 08/29/20 00:06 Hypochromasia Not Reportable 08/29/20 00:06 Poikilocytosis Not Reportable 08/29/20 00:06 Anisocytosis 1+ 08/29/20 00:06 Microcytosis Not Reportable 08/29/20 00:06 Macrocytosis Not Reportable 08/29/20 00:06 Spherocytes Not Reportable 08/29/20 00:06 Pappenheimer Bodies Not Reportable 08/29/20 00:06 Sickle Cells Not Reportable 08/29/20 00:06 Target Cells Not Reportable 08/29/20 00:06 Tear Drop Cells Not Reportable 08/29/20 00:06 Ovalocytes Not Reportable 08/29/20 00:06 Helmet Cells Not Reportable 08/29/20 00:06 Niet[place] Bodies Not Reportable 08/29/20 00:06 Wright Rings Not Reportable 08/29/20 00:06 [place] Cells Not Reportable 08/29/20 00:06 Bite Cells Not Reportable 08/29/20 00:06 Crenated Cell Not Reportable 08/29/20 00:06 Elliptocytes Not Reportable 08/29/20 00:06 Acanthocytes (Spur) Not Reportable 08/29/20 00:06 Rouleaux Not Reportable 08/29/20 00:06 Hemoglobin C Crystals Not Reportable 08/29/20 00:06 Schistocytes Not Reportable 08/29/20 00:06 Malaria parasites Not Reportable 08/29/20 00:06 Lobo Bodies Not Reportable 08/29/20 00:06 Hem Pathologist Commnt No 08/29/20 00:06 PT 14.0 Sec. (12.2-14.9) 08/30/20 07:10 INR 1.09 (0.87-1.13) 08/30/20 07:10 APTT 34.5 Sec. (24.2-36.6) 08/29/20 18:34 D-Dimer 1038.61 ng/mlDDU (0-234) H 08/29/20 14:02 Heparin Anti-Xa Level 1.38 U.I./ml (0.3-0.7) H 08/30/20 00:36 ABG pH 7.309 (7.320-7.450) L 08/30/20 08:44 POC ABG pCO2 58.5 mmHg (32.0-48.0) H 08/30/20 08:44 POC ABG pO2 101.3 mmHg (83-108) 08/30/20 08:44 POC ABG HCO3 28.7 08/30/20 08:44 ABG O2 Saturation 97.4 (0-100) 08/30/20 08:44 POC ABG Base Excess 0.9 08/30/20 08:44 ABG Hemoglobin 15.6 (12.0-17.5) 08/30/20 08:44 ABG Oxyhemoglobin 96.5 (94-98) 08/30/20 08:44 ABG Methemoglobin 0 (0.0-1.5) 08/30/20 08:44 ABG Sodium 142.1 mmol/L (136.0-145.0) 08/30/20 08:44 ABG Potassium 4.5 mmol/L (3.40-4.50) 08/30/20 08:44 ABG Chloride 99.0 mmol/L (98-107) 08/30/20 08:44 ABG Glucose 168 mg/dL (65-95) H 08/30/20 08:44 Carboxyhemoglobin 0.9 (0.5-1.5) 08/30/20 08:44 FiO2 % 30.0 08/30/20 08:44 Sodium 142 mmol/L (137-145) 08/30/20 07:10 Potassium 4.5 mmol/L (3.6-5.0) 08/30/20 07:10 Chloride 98.6 mmol/L (98-107) 08/30/20 07:10 Carbon Dioxide 30 mmol/L (22-30) 08/30/20 07:10 Anion Gap 18 mmol/L 08/30/20 07:10 BUN 34 mg/dL (9-20) H 08/30/20 07:10 Creatinine 1.1 mg/dL (0.8-1.3) 08/30/20 07:10 Estimated GFR > 60 ml/min 08/30/20 07:10 BUN/Creatinine Ratio 31 % 08/30/20 07:10 Glucose 148 mg/dL (75-100) H 08/30/20 07:10 Calcium 9.6 mg/dL (8.4-10.2) 08/30/20 07:10 Ferritin 98.8 ng/mL (30.0-300.0) 08/29/20 18:34 Lactate Dehydrogenase 261 units/L (91-180) H 08/29/20 18:34 C-Reactive Protein 1.50 mg/dL (0.00-1.30) H 08/29/20 18:34 NT-Pro-B Natriuret Pep 483.2 pg/mL (0-900) 08/29/20 14:02 Arterial Blood Glucose 168 mg/dL (65-95) H 08/30/20 08:44 Arterial Blood Ionized Calcium 5.0 mg/dL (4.6-5.3) 08/30/20 08:44 Reza/IV: Voiding Method Toilet Active Medications - Current Medications Current Medications: Generic Name Dose Route Start Last Admin Trade Name Freq PRN Reason Stop Dose Admin Acetaminophen 650 mg 08/29/20 01:20 Acetaminophen 325 Mg Tab PO Q4H PRN Pain MILD(1-3)/Fever >100.5/ARRIAZA Albuterol/Ipratropium 1 ampul 08/30/20 02:00 08/30/20 07:45 Ipratropium/Albuterol Sulfate 3 Ml Ampul.Neb IH 1 ampul Q6HRT CAROLE Administration Alprazolam 0.25 mg 08/29/20 03:50 08/30/20 09:38 Alprazolam 0.25 Mg Tab PO 0.25 mg Q12HR CAROLE Administration Arformoterol Tartrate 15 mcg 08/29/20 20:00 08/30/20 07:45 Arformoterol 15 Mcg/2 Ml Nebu IH 15 mcg Q12HRT [facility]OLE Administration Budesonide 0.5 mg 08/29/20 08:00 08/30/20 07:45 Budesonide 0.5 Mg/2 Ml Nebu IH 0.5 mg Q12HRT [facility]OLE Administration Heparin Sodium (Porcine) 3,100 unit 08/29/20 17:36 Heparin 10,000 Units/10 Ml Vial 40 unit/kg (3100 unit) IV Q6H PRN Anti-Xa Assay < 0.1 units/ml Hydralazine HCl 50 mg 08/30/20 06:55 08/30/20 07:28 Hydralazine 25 Mg Tab PO 50 mg Q8HR CAROLE Administration Levofloxacin/Dextrose 500 mg in 100 mls @ 100 mls/hr 08/29/20 12:00 08/29/20 14:05 Levaquin 500mg/100ml IV 09/02/20 12:59 100 mls/hr Q24H CAROLE Administration Protocol Heparin Sodium/Sodium Chloride 25,000 unit in 500 mls @ 23 mls/hr 08/29/20 18:00 08/30/20 09:38 Heparin/ 0.45% Nacl-25,000 Unit/500 Ml IV 1,000 units/hr TITR CAROLE 20 mls/hr Administration Protocol 1,150 UNITS/HR Labetalol HCl 10 mg 08/30/20 09:19 Labetalol 20 Mg/4 Ml Inj IV Q6H PRN SBP >170 or DBP >110 Lisinopril 40 mg 08/29/20 20:00 08/30/20 09:38 Lisinopril 40 Mg Tab PO 40 mg QDAY CAROLE Administration Magnesium Hydroxide 30 ml 08/29/20 01:20 Magnesium Hydroxide (Mom) Oral Liqd Udc PO Q4H PRN Constipation Methylprednisolone Sodium Succinate 100 mg 08/29/20 18:00 08/30/20 05:46 Methylprednisolone Sod Succinate 125 Mg/2 Ml Inj IV 100 mg Q6H CAROLE Administration Metoprolol Tartrate 50 mg 08/30/20 10:00 08/30/20 09:38 Metoprolol Tartrate 50 Mg Tab PO 50 mg BID CAROLE Administration Morphine Sulfate 2 mg 08/29/20 01:20 08/30/20 09:53 Morphine 2 Mg/1 Ml Inj IV 2 mg Q4H PRN Administration Pain, Moderate (4-6) Ondansetron HCl 4 mg 08/29/20 01:20 Ondansetron 4 Mg/2 Ml Inj IV Q8H PRN Nausea And Vomiting Sodium Chloride 10 ml 08/29/20 10:00 08/30/20 09:38 Sodium Chloride 0.9% 10 Ml Flush Syringe IV 10 ml BID CAROLE Administration Sodium Chloride 10 ml 08/29/20 01:20 Sodium Chloride 0.9% 10 Ml Flush Syringe IV PRN PRN LINE FLUSH
[2020-08-30 11:45] LABS: Basophils % (Auto) 0.4 % (0.0-1.8); Hematocrit 40.7 % (35.5-45.6); Hemoglobin 13.4 gm/dl (11.8-15.2); Lymphocytes # (Auto) 0.6 K/mm3 (1.2-5.4); Mean Corpuscular HGB Conc 33 % (32-34); Mean Corpuscular Volume 85 fl (84-94); Monocytes # (Auto) 0.8 K/mm3 (0.0-0.8); Monocytes % (Auto) 7.9 % (0.0-7.3); Platelet Count 575 K/mm3 (140-440); Red Blood Count 4.78 M/mm3 (3.65-5.03); Red Cell Distribution Width 19.6 % (13.2-15.2)
--- NOTE | 2020-08-30 12:10 | Progress Note ---
Assessment and Plan - Patient Problems (1) Acute bronchitis Current Visit: Yes Status: Acute (2) Acute asthma exacerbation Current Visit: Yes Status: Acute (3) Hypertension Current Visit: Yes Status: Acute (4) Shortness of breath Current Visit: Yes Status: Acute Subjective Interval history: events noted pt in resp despite Bipap. oxygenating well mild resp acidosis improved Objective Vital Signs - 12hr 08/30/20 08/30/20 08/30/20 01:00 04:06 04:12 Temperature Pulse Rate 115 H 110 H Pulse Rate [ 115 H Bilateral Throughout] Pulse Rate [ From Monitor] Respiratory 44 H 55 H Rate Respiratory 19 Rate [Bilateral Throughout] Respiratory Rate [Right Groin] Blood Pressure O2 Sat by Pulse 98 97 Oximetry 08/30/20 08/30/20 08/30/20 05:33 07:47 07:48 Temperature 98.9 F Pulse Rate 119 H 125 H Pulse Rate [ 122 H Bilateral Throughout] Pulse Rate [ From Monitor] Respiratory 22 42 H Rate Respiratory 50 H Rate [Bilateral Throughout] Respiratory Rate [Right Groin] Blood Pressure 188/122 O2 Sat by Pulse 98 99 Oximetry 08/30/20 08/30/20 08/30/20 08:00 08:50 08:55 Temperature Pulse Rate 135 H 135 H Pulse Rate [ Bilateral Throughout] Pulse Rate [ 134 H From Monitor] Respiratory 50 H 41 H Rate Respiratory Rate [Bilateral Throughout] Respiratory Rate [Right Groin] Blood Pressure O2 Sat by Pulse 98 97 Oximetry 08/30/20 08/30/20 08/30/20 09:01 09:11 09:21 Temperature Pulse Rate 135 H 134 H 134 H Pulse Rate [ Bilateral Throughout] Pulse Rate [ From Monitor] Respiratory 42 H 34 H 25 H Rate Respiratory Rate [Bilateral Throughout] Respiratory Rate [Right Groin] Blood Pressure 135/53 135/53 O2 Sat by Pulse 97 97 97 Oximetry 08/30/20 08/30/20 08/30/20 09:31 09:38 09:41 Temperature Pulse Rate 134 H 131 H 132 H Pulse Rate [ Bilateral Throughout] Pulse Rate [ From Monitor] Respiratory 49 H 26 H Rate Respiratory Rate [Bilateral Throughout] Respiratory Rate [Right Groin] Blood Pressure 135/53 135/53 135/53 O2 Sat by Pulse 98 97 Oximetry 08/30/20 08/30/20 08/30/20 09:51 10:00 10:11 Temperature Pulse Rate 129 H 123 H 114 H Pulse Rate [ Bilateral Throughout] Pulse Rate [ From Monitor] Respiratory 37 H 44 H 47 H Rate Respiratory Rate [Bilateral Throughout] Respiratory 43 H Rate [Right Groin] Blood Pressure 135/53 144/90 144/90 O2 Sat by Pulse 99 95 97 Oximetry 08/30/20 08/30/20 08/30/20 10:15 10:21 10:31 Temperature Pulse Rate 83 100 H Pulse Rate [ Bilateral Throughout] Pulse Rate [ From Monitor] Respiratory 38 H 51 H Rate Respiratory Rate [Bilateral Throughout] Respiratory 43 H Rate [Right Groin] Blood Pressure 144/90 144/90 O2 Sat by Pulse 94 97 Oximetry 08/30/20 08/30/20 08/30/20 10:41 10:51 11:00 Temperature Pulse Rate 104 H 95 H 96 H Pulse Rate [ Bilateral Throughout] Pulse Rate [ From Monitor] Respiratory 24 17 40 H Rate Respiratory Rate [Bilateral Throughout] Respiratory Rate [Right Groin] Blood Pressure 144/90 144/90 147/99 O2 Sat by Pulse 96 97 94 Oximetry Constitutional: other (on bipap mild to moderate distress) ENT: oropharynx moist Neck: supple Effort: mildly labored Ascultation: Bilateral: diminished breath sounds, wheezes CBC and BMP: 08/30/20 11:25 08/30/20 07:10 ABG, PT/INR, D-dimer: ABG ABG pH 7.309 (7.320-7.450) L 08/30/20 08:44 POC ABG pCO2 58.5 mmHg (32.0-48.0) H 08/30/20 08:44 POC ABG pO2 101.3 mmHg (83-108) 08/30/20 08:44 POC ABG HCO3 28.7 08/30/20 08:44 ABG O2 Saturation 97.4 (0-100) 08/30/20 08:44 PT/INR, D-dimer PT 14.0 Sec. (12.2-14.9) 08/30/20 07:10 INR 1.09 (0.87-1.13) 08/30/20 07:10 D-Dimer 1038.61 ng/mlDDU (0-234) H 08/29/20 14:02 Abnormal lab findings: Abnormal Labs 08/29/20 08/29/20 08/29/20 00:06 00:06 14:02 Hgb Hct MCV 83 L RDW 20.4 H Plt Count 496 H Lymph % (Auto) [place] % (Auto) Lymph # (Auto) Seg Neutrophils % Seg Neuts % (Manual) 85.0 H Lymphocytes % (Manual) 12.0 L Seg Neutrophils # Seg Neutrophils # Man 8.2 H D-Dimer 1038.61 H Heparin Anti-Xa Level ABG pH POC ABG pCO2 POC ABG pO2 ABG Potassium ABG Glucose BUN Glucose 125 H Lactate Dehydrogenase C-Reactive Protein Arterial Blood Glucose 08/29/20 08/29/20 08/30/20 15:05 18:34 00:36 Hgb Hct MCV RDW Plt Count Lymph % (Auto) [place] % (Auto) Lymph # (Auto) Seg Neutrophils % Seg Neuts % (Manual) Lymphocytes % (Manual) Seg Neutrophils # Seg Neutrophils # Man D-Dimer Heparin Anti-Xa Level 1.38 H ABG pH 7.280 L POC ABG pCO2 57.9 H POC ABG pO2 112.1 H ABG Potassium 4.7 H ABG Glucose 143 H BUN Glucose Lactate Dehydrogenase 261 H C-Reactive Protein 1.50 H Arterial Blood Glucose 143 H 08/30/20 08/30/20 08/30/20 07:10 07:10 08:30 Hgb 10.1 L D Hct 30.3 L D MCV RDW 19.8 H Plt Count 560 H 84 L Lymph % (Auto) 7.1 L [place] % (Auto) Lymph # (Auto) 0.7 L Seg Neutrophils % 87.8 H Seg Neuts % (Manual) Lymphocytes % (Manual) Seg Neutrophils # 9.0 H Seg Neutrophils # Man D-Dimer Heparin Anti-Xa Level ABG pH POC ABG pCO2 POC ABG pO2 ABG Potassium ABG Glucose BUN 34 H Glucose 148 H Lactate Dehydrogenase C-Reactive Protein Arterial Blood Glucose 08/30/20 08/30/20 08:44 11:25 Hgb Hct MCV RDW 19.6 H Plt Count 575 H D Lymph % (Auto) 6.0 L [place] % (Auto) 7.9 H Lymph # (Auto) 0.6 L Seg Neutrophils % 85.7 H Seg Neuts % (Manual) Lymphocytes % (Manual) Seg Neutrophils # 8.8 H Seg Neutrophils # Man D-Dimer Heparin Anti-Xa Level ABG pH 7.309 L POC ABG pCO2 58.5 H POC ABG pO2 ABG Potassium ABG Glucose 168 H BUN Glucose Lactate Dehydrogenase C-Reactive Protein Arterial Blood Glucose 168 H Chest x-ray: report reviewed, image reviewed
[2020-08-30] MEDS: ALBUTEROL 2.5 MG/3 ML NEBU IH SCH ×3 (12:45→21:10)
[2020-08-30] MEDS: NICOTINE 14 MG/24 HR PATCH TD SCH (13:06)
[2020-08-30] MEDS: LORazepam 2 MG/ML VIAL IV PRN (13:23)
[2020-08-30] MEDS ORDERED: FUROSEMIDE 20 MG/2 ML INJ IV ONE (13:34)
--- NOTE | 2020-08-30 15:19 | Consultation ---
History of Present Illness Consult date: 08/30/20 Reason for consult: hernia - History of present illness History of present illness: 55 year old male admitted through ED with respiratory insufficiency and asthma exacerbation. He is in the ICU on BIPAP. He was complaining of pain in his right groin and the nurse noticed a bulge. Surgery is being consulted for possible R inguinal hernia. Pt says that he has had the hernia for at least a year and that it feels the same as it always has. He is able to reduce it, and the pain is less than it was overnight. He denies nausea or vomiting. Past History Past Medical History: COPD, hypertension, other (Asthma) Past Surgical History: No surgical history, Other (Left lower extremity bypass surgery) Social history: lives with family, smoking (Current daily smoker) Family history: no significant family history Medications and Allergies Allergies Allergy/AdvReac Type Severity Reaction Status Date / Time No Known Allergies Allergy Verified 08/16/20 23:42 Home Medications Medication Instructions Recorded Confirmed Last Taken Type Albuterol Mdi (or & Nicu Only) 2 puff IH QID PRN #8.5 gram 08/17/20 Unknown Rx [ProAir HFA Inhaler] Albuterol Sulfate [Albuterol 0.63% 0.63 mg IH TID PRN #75 ml 08/17/20 Unknown Rx NEBS] Azithromycin [Zithromax Z-PRIYANKA] 0 mg PO DAILY #6 tab 08/17/20 Unknown Rx Prednisone [predniSONE 10 mg 10 mg PO .TAPER #1 tab.ds.pk 08/17/20 Unknown Rx (6-Day Pack, 21 Tabs)] ALPRAZolam [Xanax TAB] 0.25 mg PO BID PRN 08/29/20 08/29/20 Unknown History Clopidogrel [Plavix] 08/29/20 Unknown History Vitamin D3 08/29/20 Unknown History lisinopriL [Zestril TAB] 40 mg PO QDAY 08/29/20 08/29/20 Unknown History Active Meds: Active Medications Acetaminophen (Acetaminophen 325 Mg Tab) 650 mg PO Q4H PRN PRN Reason: Pain MILD(1-3)/Fever >100.5/ARRIAZA Albuterol (Albuterol 2.5 Mg/3 Ml Nebu) 2.5 mg IH Q4HRT CAROLE Last Admin: 08/30/20 12:45 Dose: 2.5 mg Documented by: Budesonide (Budesonide 0.5 Mg/2 Ml Nebu) 0.5 mg IH Q12HRT [facility] Last Admin: 08/30/20 07:45 Dose: 0.5 mg Documented by: Heparin Sodium (Porcine) (Heparin 10,000 Units/10 Ml Vial) 3,100 unit 40 unit/kg (3100 unit) IV Q6H PRN PRN Reason: Anti-Xa Assay < 0.1 units/ml Hydralazine HCl (Hydralazine 25 Mg Tab) 50 mg PO Q8HR [facility] Last Admin: 08/30/20 13:06 Dose: 50 mg Documented by: Levofloxacin/Dextrose (Levaquin 500mg/100ml) 500 mg in 100 mls @ 100 mls/hr IV Q24H [facility]; Protocol Stop: 09/02/20 12:59 Last Admin: 08/30/20 12:07 Dose: 100 mls/hr Documented by: Heparin Sodium/Sodium Chloride (Heparin/ 0.45% Nacl-25,000 Unit/500 Ml) 25,000 unit in 500 mls @ 23 mls/hr IV TITR [facility]; Protocol Last Admin: 08/30/20 09:38 Dose: 1,000 units/hr, 20 mls/hr Documented by: Labetalol HCl (Labetalol 20 Mg/4 Ml Inj) 10 mg IV Q6H PRN PRN Reason: SBP >170 or DBP >110 Lisinopril (Lisinopril 40 Mg Tab) 40 mg PO QDAY [facility] Last Admin: 08/30/20 09:38 Dose: 40 mg Documented by: Lorazepam (Lorazepam 2 Mg/Ml Vial) 1 mg IV Q6H PRN PRN Reason: Anxiety Last Admin: 08/30/20 13:23 Dose: 1 mg Documented by: Magnesium Hydroxide (Magnesium Hydroxide (Mom) Oral Liqd Udc) 30 ml PO Q4H PRN PRN Reason: Constipation Methylprednisolone Sodium Succinate (Methylprednisolone Sod Succinate 125 Mg/2 Ml Inj) 100 mg IV Q6H [facility] Last Admin: 08/30/20 12:07 Dose: 100 mg Documented by: Morphine Sulfate (Morphine 2 Mg/1 Ml Inj) 2 mg IV Q4H PRN PRN Reason: Pain, Moderate (4-6) Last Admin: 08/30/20 09:53 Dose: 2 mg Documented by: Nicotine (Nicotine 14 Mg/24 Hr Patch) 14 mg TD QDAY [facility] Last Admin: 08/30/20 13:06 Dose: 14 mg Documented by: Ondansetron HCl (Ondansetron 4 Mg/2 Ml Inj) 4 mg IV Q8H PRN PRN Reason: Nausea And Vomiting Sodium Chloride (Sodium Chloride 0.9% 10 Ml Flush Syringe) 10 ml IV BID [facility] Last Admin: 08/30/20 09:38 Dose: 10 ml Documented by: Sodium Chloride (Sodium Chloride 0.9% 10 Ml Flush Syringe) 10 ml IV PRN PRN PRN Reason: LINE FLUSH Review of Systems ROS unobtainable: due to endotracheal tube (not intubated but barely able to make long statements due to BIPAP and labored breathing) Exam Vital Signs Resp Pulse Ox 14 98 08/28/20 22:02 08/28/20 22:02 - General physical appearance Positive: well developed, well nourished, moderate distress, no pain - Respiratory Positive: other (labored breathing on BIPAP) - Cardiovascular Heart Sounds: Present: S1 & S2 - Extremities Extremities: no ischemia - Abdomen Abdomen: Present: soft. Absent: tender Hernia: inguinal, reducible, other (right side) - Genitourinary Male Genitourinary: right inguinal hernia Results - Labs 08/30/20 11:25 08/30/20 07:10 Abnormal lab results 08/29/20 08/29/20 08/30/20 Range/Units 15:05 18:34 00:36 Hgb (11.8-15.2) gm/dl Hct (35.5-45.6) % RDW (13.2-15.2) % Plt Count (140-440) K/mm3 Lymph % (Auto) (13.4-35.0) % [place] % (Auto) (0.0-7.3) % Lymph # (Auto) (1.2-5.4) K/mm3 Seg Neutrophils % (40.0-70.0) % Seg Neutrophils # (1.8-7.7) K/mm3 Heparin Anti-Xa Level 1.38 H (0.3-0.7) U.I./ml ABG pH 7.280 L (7.320-7.450) POC ABG pCO2 57.9 H (32.0-48.0) mmHg POC ABG pO2 112.1 H (83-108) mmHg ABG Potassium 4.7 H (3.40-4.50) mmol/L ABG Glucose 143 H (65-95) mg/dL BUN (9-20) mg/dL Glucose (75-100) mg/dL POC Glucose (70-105) mg/dL Lactate Dehydrogenase 261 H (91-180) units/L C-Reactive Protein 1.50 H (0.00-1.30) mg/dL Arterial Blood Glucose 143 H (65-95) mg/dL 08/30/20 08/30/20 08/30/20 Range/Units 07:10 07:10 08:30 Hgb 10.1 L D (11.8-15.2) gm/dl Hct 30.3 L D (35.5-45.6) % RDW 19.8 H (13.2-15.2) % Plt Count 560 H 84 L (140-440) K/mm3 Lymph % (Auto) 7.1 L (13.4-35.0) % [place] % (Auto) (0.0-7.3) % Lymph # (Auto) 0.7 L (1.2-5.4) K/mm3 Seg Neutrophils % 87.8 H (40.0-70.0) % Seg Neutrophils # 9.0 H (1.8-7.7) K/mm3 Heparin Anti-Xa Level (0.3-0.7) U.I./ml ABG pH (7.320-7.450) POC ABG pCO2 (32.0-48.0) mmHg POC ABG pO2 (83-108) mmHg ABG Potassium (3.40-4.50) mmol/L ABG Glucose (65-95) mg/dL BUN 34 H (9-20) mg/dL Glucose 148 H (75-100) mg/dL POC Glucose (70-105) mg/dL Lactate Dehydrogenase (91-180) units/L C-Reactive Protein (0.00-1.30) mg/dL Arterial Blood Glucose (65-95) mg/dL 08/30/20 08/30/20 08/30/20 Range/Units 08:44 11:25 12:14 Hgb (11.8-15.2) gm/dl Hct (35.5-45.6) % RDW 19.6 H (13.2-15.2) % Plt Count 575 H D (140-440) K/mm3 Lymph % (Auto) 6.0 L (13.4-35.0) % [place] % (Auto) 7.9 H (0.0-7.3) % Lymph # (Auto) 0.6 L (1.2-5.4) K/mm3 Seg Neutrophils % 85.7 H (40.0-70.0) % Seg Neutrophils # 8.8 H (1.8-7.7) K/mm3 Heparin Anti-Xa Level (0.3-0.7) U.I./ml ABG pH 7.309 L (7.320-7.450) POC ABG pCO2 58.5 H (32.0-48.0) mmHg POC ABG pO2 (83-108) mmHg ABG Potassium (3.40-4.50) mmol/L ABG Glucose 168 H (65-95) mg/dL BUN (9-20) mg/dL Glucose (75-100) mg/dL POC Glucose 124 H (70-105) mg/dL Lactate Dehydrogenase (91-180) units/L C-Reactive Protein (0.00-1.30) mg/dL Arterial Blood Glucose 168 H (65-95) mg/dL Diabetes panel 08/30/20 Range/Units 07:10 Sodium 142 (137-145) mmol/L Potassium 4.5 (3.6-5.0) mmol/L Chloride 98.6 (98-107) mmol/L Carbon Dioxide 30 (22-30) mmol/L BUN 34 H (9-20) mg/dL Creatinine 1.1 (0.8-1.3) mg/dL Glucose 148 H (75-100) mg/dL Calcium 9.6 (8.4-10.2) mg/dL Calcium panel 08/30/20 Range/Units 07:10 Calcium 9.6 (8.4-10.2) mg/dL Pituitary panel 08/30/20 Range/Units 07:10 Sodium 142 (137-145) mmol/L Potassium 4.5 (3.6-5.0) mmol/L Chloride 98.6 (98-107) mmol/L Carbon Dioxide 30 (22-30) mmol/L BUN 34 H (9-20) mg/dL Creatinine 1.1 (0.8-1.3) mg/dL Glucose 148 H (75-100) mg/dL Calcium 9.6 (8.4-10.2) mg/dL Adrenal panel 08/30/20 Range/Units 07:10 Sodium 142 (137-145) mmol/L Potassium 4.5 (3.6-5.0) mmol/L Chloride 98.6 (98-107) mmol/L Carbon Dioxide 30 (22-30) mmol/L BUN 34 H (9-20) mg/dL Creatinine 1.1 (0.8-1.3) mg/dL Glucose 148 H (75-100) mg/dL Calcium 9.6 (8.4-10.2) mg/dL Assessment and Plan 55 year old male in ICU for respiratory insufficiency on BIPAP. COPD/asthma exacerbation. Afebrile with guarded condition due to acute respiratory comp romise. Right inguinal hernia, chronic, reducible. No signs of bowel ischemia. Pt is not a suitable surgical candidate for elective repair of hernia at this time. Can follow up as out patient if improves and cleared by pulmonary for general anesthesia. If hernia becomes acutely incarcerated during this admission may need urgent intervention. No surgical intervention planned at this time.
[2020-08-30] MEDS: ALPRAZolam 0.25 MG TAB PO PRN (21:29)
[2020-08-31] MEDS: ALBUTEROL 2.5 MG/3 ML NEBU IH SCH ×7 (00:54→23:20)
[2020-08-31] MEDS: methylPREDNISolone Sod Succinate 125 MG/2 ML INJ IV SCH ×5 (01:14→23:27)
[2020-08-31] MEDS: MORPHINE 2 MG/1 ML INJ IV PRN ×4 (01:51→13:30)
[2020-08-31 03:18] LABS: Hematocrit 37.5 % (35.5-45.6); Hemoglobin 12.5 gm/dl (11.8-15.2)
[2020-08-31] MEDS: hydrALAZINE 25 MG TAB PO SCH ×2 (05:14→13:32)
--- NOTE | 2020-08-31 09:01 | Progress Note ---
Assessment and Plan Assessment and plan: This is a 55-year-old male with asthma, nicotine dependence and hypertension who was admitted with asthma exacerbation, acute hypoxic respiratory failure. #Acute hypoxic respiratory failure -S/p BiPAP therapy -Weaned to high flow nasal cannula #Acute asthma exacerbation -S/p BiPAP therapy -Continue methylprednisone, taper started -Continue albuterol -CCM consulted, appreciate recommendations -Pulmonary hygiene -Admit CXR negative for acute pathology #Elevated D-dimer -Start empirically on heparin drip for possible PE as he cannot get CT PE due inability to lay flat -Ultrasound lower extremity Doppler pending #Hypertension -Started on IV medications -Continue to monitor closely #Right inguinal hernia -Complains of right inguinal hernia pain -No signs of bowel obstruction -Surgery consulted, appreciate recommendations -Recommend outpatient follow-up #Thrombocytosis -Trend CBC -Anticoagulation with heparin drip #DVT prophylaxis: On heparin drip for possible PE, SCDs to bilateral lower e xtremity while in bed #GI prophylaxis: #Disposition-ICU for now, may be downgraded to IMCU per [facility], Home when stable for discharge Critical care statement The high probability OF a clinically significant sudden or life-threatening deterioration of the cardiorespiratory system and endocrine system required my full and direct attention, intervention and postoperative management. The aggregate critical care time was 40 minutes. The time is in addition to time spent performing reported procedures but includes the followin: Data review and interpretation 2: Patient assessment and monitoring of vital signs 3: Documentation 4:: Medication orders and management Advance Directives: Yes (Full code) History Interval history: This is a 55-year-old male with asthma (requiring intubation x2 for acute exacerbations), nicotine dependence and hypertension who presented to the emergency department on 08/29 complaining of shortness of breath. Upon arrival to the emergency department patient was wheezing and having labored breathing and placed on BiPAP. Patient continued to have increased work of breathing despite nebulizing treatments in the emergency department. CXR did not show any acute findings and labs were unremarkable. Patient was admitted to the hospital service with asthma exacerbation and [facility] and surgery were consulted. 08/29. Patient seen and examined at bedside this morning. Patient is still wheezing. Remains on BiPAP. Increase steroids to 80 mg every 6. Pulmonology consulted. Started patient on albuterol every 4 scheduled. May need to transfer to IMCU if no improve in the next 3 to 4 hours. 08/30. Still remains on BiPAP. Remains on bronchodilators and Solu-Medrol 100 q. 6. Blood pressure elevated so has been started on IV blood pressure medications. Pulmonology is following. Patient may need intubation if not improved. Discussed with customer service advisor this a.m. He complains of right inguinal pain. Will consult surgery for evaluation. He has no signs of bowel obstruction 08/31: Patient was able to be taken off BiPAP and placed on high flow nasal cannula another time my examination he was on 3 L 60%. Bilateral lower extremity Dopplers are pending. [facility] decreased steroids to 60 every 6. RN attempted trial lying flat in the unit however patient was unable to lay flat without shortness of breath. Nicotine patch given increased to 21 mcg and Wellbutrin started to aid in smoking cessation. Hospitalist Physical - Constitutional Vitals: Temp Pulse Resp BP Pulse Ox 97.5 F L 106 H 28 H 123/82 98 08/31/20 08:00 08/31/20 08:00 08/31/20 08:00 08/31/20 08:00 08/31/20 08:00 General appearance: Present: no acute distress, well-nourished - EENT Eyes: Present: PERRL, EOM intact ENT: hearing intact, clear oral mucosa, dentition normal - Neck Neck: Present: supple - Respiratory Respiratory effort: normal Respiratory: bilateral: diminished - Cardiovascular Rhythm: regular Heart Sounds: Present: S1 & S2. Absent: systolic murmur, diastolic murmur - Extremities Extremities: no ischemia, pulses intact, pulses symmetrical, No edema, normal temperature, normal color, Full ROM Peripheral Pulses: within normal limits - Abdominal General gastrointestinal: soft, non-tender, non-distended, normal bowel sounds - Integumentary Integumentary: Present: warm, dry - Psychiatric Psychiatric: appropriate mood/affect, cooperative - Neurologic Neurologic: CNII-XII intact, moves all extremities - Allied Health Allied health notes reviewed: nursing, RT Results - Labs CBC & Chem 7: 08/31/20 02:11 08/30/20 07:10 Labs: Laboratory Last Values WBC 10.2 K/mm3 (4.5-11.0) 08/30/20 11:25 RBC 4.78 M/mm3 (3.65-5.03) 08/30/20 11:25 Hgb 12.5 gm/dl (11.8-15.2) 08/31/20 02:11 Hct 37.5 % (35.5-45.6) 08/31/20 02:11 MCV 85 fl (84-94) 08/30/20 11:25 MCH 28 pg (28-32) 08/30/20 11:25 MCHC 33 % (32-34) 08/30/20 11:25 RDW 19.6 % (13.2-15.2) H 08/30/20 11:25 Plt Count 540 K/mm3 (140-440) H 08/31/20 02:11 Lymph % (Auto) 6.0 % (13.4-35.0) L 08/30/20 11:25 [place] % (Auto) 7.9 % (0.0-7.3) H 08/30/20 11:25 Eos % (Auto) 0.0 % (0.0-4.3) 08/30/20 11:25 Baso % (Auto) 0.4 % (0.0-1.8) 08/30/20 11:25 Lymph # (Auto) 0.6 K/mm3 (1.2-5.4) L 08/30/20 11:25 [place] # (Auto) 0.8 K/mm3 (0.0-0.8) 08/30/20 11:25 Eos # (Auto) 0.0 K/mm3 (0.0-0.4) 08/30/20 11:25 Baso # (Auto) 0.0 K/mm3 (0.0-0.1) 08/30/20 11:25 Add Manual Diff Complete 08/29/20 00:06 Total Counted 100 08/29/20 00:06 Seg Neutrophils % 85.7 % (40.0-70.0) H 08/30/20 11:25 Seg Neuts % (Manual) 85.0 % (40.0-70.0) H 08/29/20 00:06 Band Neutrophils % 1.0 % 08/29/20 00:06 Lymphocytes % (Manual) 12.0 % (13.4-35.0) L 08/29/20 00:06 Monocytes % (Manual) 2.0 % (0.0-7.3) 08/29/20 00:06 Nucleated RBC % Not Reportable 08/29/20 00:06 Seg Neutrophils # 8.8 K/mm3 (1.8-7.7) H 08/30/20 11:25 Seg Neutrophils # Man 8.2 K/mm3 (1.8-7.7) H 08/29/20 00:06 Band Neutrophils # 0.1 K/mm3 08/29/20 00:06 Lymphocytes # (Manual) 1.2 K/mm3 (1.2-5.4) 08/29/20 00:06 Abs React Lymphs (Man) 0.0 K/mm3 08/29/20 00:06 Monocytes # (Manual) 0.2 K/mm3 (0.0-0.8) 08/29/20 00:06 Eosinophils # (Manual) 0.0 K/mm3 (0.0-0.4) 08/29/20 00:06 Basophils # (Manual) 0.0 K/mm3 (0.0-0.1) 08/29/20 00:06 Metamyelocytes # 0.0 K/mm3 08/29/20 00:06 Myelocytes # 0.0 K/mm3 08/29/20 00:06 Promyelocytes # 0.0 K/mm3 08/29/20 00:06 Blast Cells # 0.0 K/mm3 08/29/20 00:06 WBC Morphology Not Reportable 08/29/20 00:06 Hypersegmented Neuts Not Reportable 08/29/20 00:06 Hyposegmented Neuts Not Reportable 08/29/20 00:06 Hypogranular Neuts Not Reportable 08/29/20 00:06 Smudge Cells Not Reportable 08/29/20 00:06 Toxic Granulation Not Reportable 08/29/20 00:06 Toxic Vacuolation Not Reportable 08/29/20 00:06 Dohle Bodies Not Reportable 08/29/20 00:06 Pelger-Huet Anomaly Not Reportable 08/29/20 00:06 Galo Rods Not Reportable 08/29/20 00:06 Platelet Estimate Consistent w auto 08/29/20 00:06 Clumped Platelets Not Reportable 08/29/20 00:06 Plt Clumps, EDTA Not Reportable 08/29/20 00:06 Large Platelets Not Reportable 08/29/20 00:06 Giant Platelets Not Reportable 08/29/20 00:06 Platelet Satelliting Not Reportable 08/29/20 00:06 Plt Morphology Comment Not Reportable 08/29/20 00:06 RBC Morphology Not Reportable 08/29/20 00:06 Dimorphic RBCs Not Reportable 08/29/20 00:06 Polychromasia Not Reportable 08/29/20 00:06 Hypochromasia Not Reportable 08/29/20 00:06 Poikilocytosis Not Reportable 08/29/20 00:06 Anisocytosis 1+ 08/29/20 00:06 Microcytosis Not Reportable 08/29/20 00:06 Macrocytosis Not Reportable 08/29/20 00:06 Spherocytes Not Reportable 08/29/20 00:06 Pappenheimer Bodies Not Reportable 08/29/20 00:06 Sickle Cells Not Reportable 08/29/20 00:06 Target Cells Not Reportable 08/29/20 00:06 Tear Drop Cells Not Reportable 08/29/20 00:06 Ovalocytes Not Reportable 08/29/20 00:06 Helmet Cells Not Reportable 08/29/20 00:[address] [place] Bodies Not Reportable 08/29/20 00:06 [place] Rings Not Reportable 08/29/20 00:06 [place] Cells Not Reportable 08/29/20 00:06 Bite Cells Not Reportable 08/29/20 00:06 Crenated Cell Not Reportable 08/29/20 00:06 Elliptocytes Not Reportable 08/29/20 00:06 Acanthocytes (Spur) Not Reportable 08/29/20 00:06 Rouleaux Not Reportable 08/29/20 00:06 Hemoglobin C Crystals Not Reportable 08/29/20 00:06 Schistocytes Not Reportable 08/29/20 00:06 Malaria parasites Not Reportable 08/29/20 00:06 Lobo Bodies Not Reportable 08/29/20 00:06 Hem Pathologist Commnt No 08/29/20 00:06 PT 14.0 Sec. (12.2-14.9) 08/30/20 07:10 INR 1.09 (0.87-1.13) 08/30/20 07:10 APTT 34.5 Sec. (24.2-36.6) 08/29/20 18:34 D-Dimer 1038.61 ng/mlDDU (0-234) H 08/29/20 14:02 Heparin Anti-Xa Level 0.80 U.I./ml (0.3-0.7) H 08/31/20 02:11 ABG pH 7.309 (7.320-7.450) L 08/30/20 08:44 POC ABG pCO2 58.5 mmHg (32.0-48.0) H 08/30/20 08:44 POC ABG pO2 101.3 mmHg (83-108) 08/30/20 08:44 POC ABG HCO3 28.7 08/30/20 08:44 ABG O2 Saturation 97.4 (0-100) 08/30/20 08:44 POC ABG Base Excess 0.9 08/30/20 08:44 ABG Hemoglobin 15.6 (12.0-17.5) 08/30/20 08:44 ABG Oxyhemoglobin 96.5 (94-98) 08/30/20 08:44 ABG Methemoglobin 0 (0.0-1.5) 08/30/20 08:44 ABG Sodium 142.1 mmol/L (136.0-145.0) 08/30/20 08:44 ABG Potassium 4.5 mmol/L (3.40-4.50) 08/30/20 08:44 ABG Chloride 99.0 mmol/L (98-107) 08/30/20 08:44 ABG Glucose 168 mg/dL (65-95) H 08/30/20 08:44 Carboxyhemoglobin 0.9 (0.5-1.5) 08/30/20 08:44 FiO2 % 30.0 08/30/20 08:44 Sodium 142 mmol/L (137-145) 08/30/20 07:10 Potassium 4.5 mmol/L (3.6-5.0) 08/30/20 07:10 Chloride 98.6 mmol/L (98-107) 08/30/20 07:10 Carbon Dioxide 30 mmol/L (22-30) 08/30/20 07:10 Anion Gap 18 mmol/L 08/30/20 07:10 BUN 34 mg/dL (9-20) H 08/30/20 07:10 Creatinine 1.1 mg/dL (0.8-1.3) 08/30/20 07:10 Estimated GFR > 60 ml/min 08/30/20 07:10 BUN/Creatinine Ratio 31 % 08/30/20 07:10 Glucose 148 mg/dL (75-100) H 08/30/20 07:10 POC Glucose 138 mg/dL (70-105) H 08/30/20 17:24 Calcium 9.6 mg/dL (8.4-10.2) 08/30/20 07:10 Ferritin 98.8 ng/mL (30.0-300.0) 08/29/20 18:34 Lactate Dehydrogenase 261 units/L (91-180) H 08/29/20 18:34 C-Reactive Protein 1.50 mg/dL (0.00-1.30) H 08/29/20 18:34 NT-Pro-B Natriuret Pep 483.2 pg/mL (0-900) 08/29/20 14:02 Procalcitonin 0.05 ng/mL (<0.15) 08/29/20 18:34 Arterial Blood Glucose 168 mg/dL (65-95) H 08/30/20 08:44 Arterial Blood Ionized Calcium 5.0 mg/dL (4.6-5.3) 08/30/20 08:44 Coronavirus (PCR) Negative (Negative) 08/29/20 Unknown Reza/IV: Voiding Method Urinal Active Medications - Current Medications Current Medications: Generic Name Dose Route Start Last Admin Trade Name Freq PRN Reason Stop Dose Admin Acetaminophen 650 mg 08/29/20 01:20 Acetaminophen 325 Mg Tab PO Q4H PRN Pain MILD(1-3)/Fever >100.5/ARRIAZA Albuterol 2.5 mg 08/30/20 12:45 08/31/20 05:08 Albuterol 2.5 Mg/3 Ml Nebu IH 2.5 mg Q4HRT CAROLE Administration Alprazolam 0.25 mg 08/30/20 21:06 08/30/20 21:29 Alprazolam 0.25 Mg Tab PO 0.25 mg Q12HR PRN Administration Anxiety Budesonide 0.5 mg 08/29/20 08:00 08/30/20 21:10 Budesonide 0.5 Mg/2 Ml Nebu IH 0.5 mg Q12HRT CAROLE Administration Heparin Sodium (Porcine) 3,100 unit 08/29/20 17:36 Heparin 10,000 Units/10 Ml Vial 40 unit/kg (3100 unit) IV Q6H PRN Anti-Xa Assay < 0.1 units/ml Hydralazine HCl 50 mg 08/30/20 06:55 08/31/20 05:14 Hydralazine 25 Mg Tab PO 50 mg Q8HR CAROLE Administration Levofloxacin/Dextrose 500 mg in 100 mls @ 100 mls/hr 08/29/20 12:00 08/30/20 12:07 Levaquin 500mg/100ml IV 09/02/20 12:59 100 mls/hr Q24H CAROLE Administration Protocol Heparin Sodium/Sodium Chloride 25,000 unit in 500 mls @ 23 mls/hr 08/29/20 18:00 08/31/20 03:38 Heparin/ 0.45% Nacl-25,000 Unit/500 Ml IV 750 units/hr TITR CAROLE 15 mls/hr Titration Protocol 1,150 UNITS/HR Labetalol HCl 10 mg 08/30/20 09:19 Labetalol 20 Mg/4 Ml Inj IV Q6H PRN SBP >170 or DBP >110 Lisinopril 40 mg 08/29/20 20:00 08/30/20 09:38 Lisinopril 40 Mg Tab PO 40 mg QDAY CAROLE Administration Lorazepam 1 mg 08/30/20 12:02 08/30/20 13:23 Lorazepam 2 Mg/Ml Vial IV 1 mg Q6H PRN Administration Anxiety Magnesium Hydroxide 30 ml 08/29/20 01:20 Magnesium Hydroxide (Mom) Oral Liqd Udc PO Q4H PRN Constipation Methylprednisolone Sodium Succinate 100 mg 08/29/20 18:00 08/31/20 05:14 Methylprednisolone Sod Succinate 125 Mg/2 Ml Inj IV 100 mg Q6H CAROLE Administration Morphine Sulfate 2 mg 08/29/20 01:20 08/31/20 05:15 Morphine 2 Mg/1 Ml Inj IV 2 mg Q4H PRN Administration Pain, Moderate (4-6) Nicotine 14 mg 08/30/20 14:00 08/30/20 13:06 Nicotine 14 Mg/24 Hr Patch TD 14 mg QDAY CAROLE Administration Ondansetron HCl 4 mg 08/29/20 01:20 Ondansetron 4 Mg/2 Ml Inj IV Q8H PRN Nausea And Vomiting Sodium Chloride 10 ml 08/29/20 10:00 08/30/20 21:30 Sodium Chloride 0.9% 10 Ml Flush Syringe IV 10 ml BID CAROLE Administration Sodium Chloride 10 ml 08/29/20 01:20 Sodium Chloride 0.9% 10 Ml Flush Syringe IV PRN PRN LINE FLUSH
[2020-08-31] MEDS: ALPRAZolam 0.25 MG TAB PO PRN ×2 (09:36→20:31)
[2020-08-31] MEDS: LISINOPRIL 40 MG TAB PO SCH (09:36)
[2020-08-31] MEDS: NICOTINE 14 MG/24 HR PATCH TD SCH (09:39)
[2020-08-31] MEDS: BUDESONIDE 0.5 MG/2 ML NEBU IH SCH ×2 (09:52→19:26)
[2020-08-31] MEDS ORDERED: NICOTINE 14 MG/24 HR PATCH TD SCH (11:00)
--- NOTE | 2020-08-31 11:16 | Progress Note ---
Assessment and Plan 55 y/o male with acute exacerbation of COPD and acute respiratory 1. Change steroids to 60q6 2. continue pulmicort BID and scheduled duonebs 3. Limit volume, hold on diuretic therapy for now. 4. Follow up vascular labs to see if VTE is present. If so, no need for CTA and continue anticoagulation. If negative will attempt to lie flat here in unit prior to transport for CTA. 5. Increase patch to 21 and start Wellbutrin 150XL daily as patient requests help with stopping smoking. could move to step down but no beds so can stay in unit until respiratory status is more stable. Maybe ready for transfer out later today vs tomorrow morning. Subjective Date of service: 08/31/20 Interval history: No acute events. Weaned off bipap. Awake and alert. Feels better. Objective Vital Signs - 12hr 08/30/20 08/30/20 08/30/20 23:11 23:21 23:31 Temperature Pulse Rate 104 H 107 H 108 H Pulse Rate [ Bilateral Throughout] Pulse Rate [ From Monitor] Respiratory 34 H 30 H 34 H Rate Respiratory Rate [Bilateral Throughout] Blood Pressure 105/72 105/72 105/72 O2 Sat by Pulse 100 99 99 Oximetry 08/30/20 08/30/20 08/31/20 23:41 23:51 00:00 Temperature 98.1 F Pulse Rate 103 H 105 H 104 H Pulse Rate [ Bilateral Throughout] Pulse Rate [ 103 H From Monitor] Respiratory 36 H 36 H 36 H Rate Respiratory Rate [Bilateral Throughout] Blood Pressure 105/72 105/72 97/66 O2 Sat by Pulse 98 99 95 Oximetry 08/31/20 08/31/20 08/31/20 00:11 00:21 00:31 Temperature Pulse Rate 102 H 100 H 100 H Pulse Rate [ Bilateral Throughout] Pulse Rate [ From Monitor] Respiratory 33 H 34 H 36 H Rate Respiratory Rate [Bilateral Throughout] Blood Pressure 97/66 97/66 97/66 O2 Sat by Pulse 99 98 97 Oximetry 08/31/20 08/31/20 08/31/20 00:41 00:51 00:52 Temperature Pulse Rate 101 H 104 H 104 H Pulse Rate [ Bilateral Throughout] Pulse Rate [ From Monitor] Respiratory 28 H 31 H 29 H Rate Respiratory Rate [Bilateral Throughout] Blood Pressure 97/66 97/66 97/66 O2 Sat by Pulse 99 98 98 Oximetry 08/31/20 08/31/20 08/31/20 00:54 01:00 01:10 Temperature Pulse Rate 105 H 105 H Pulse Rate [ 104 H Bilateral Throughout] Pulse Rate [ From Monitor] Respiratory 26 H 35 H Rate Respiratory 48 H Rate [Bilateral Throughout] Blood Pressure 97/66 O2 Sat by Pulse 98 Oximetry 08/31/20 08/31/20 08/31/20 01:20 01:30 01:40 Temperature Pulse Rate 103 H 102 H 103 H Pulse Rate [ Bilateral Throughout] Pulse Rate [ From Monitor] Respiratory 34 H 33 H 32 H Rate Respiratory Rate [Bilateral Throughout] Blood Pressure 102/73 102/73 102/73 O2 Sat by Pulse 97 97 98 Oximetry 08/31/20 08/31/20 08/31/20 01:50 02:00 02:10 Temperature Pulse Rate 105 H 107 H 110 H Pulse Rate [ Bilateral Throughout] Pulse Rate [ From Monitor] Respiratory 15 34 H 27 H Rate Respiratory Rate [Bilateral Throughout] Blood Pressure 102/73 125/80 125/80 O2 Sat by Pulse 100 100 100 Oximetry 08/31/20 08/31/20 08/31/20 02:20 02:30 02:40 Temperature Pulse Rate 108 H 105 H 105 H Pulse Rate [ Bilateral Throughout] Pulse Rate [ From Monitor] Respiratory 25 H 31 H 31 H Rate Respiratory Rate [Bilateral Throughout] Blood Pressure 125/80 125/80 125/80 O2 Sat by Pulse 100 100 100 Oximetry 08/31/20 08/31/20 08/31/20 02:50 03:00 03:10 Temperature Pulse Rate 102 H 110 H 104 H Pulse Rate [ Bilateral Throughout] Pulse Rate [ From Monitor] Respiratory 32 H 15 31 H Rate Respiratory Rate [Bilateral Throughout] Blood Pressure 125/80 108/80 108/80 O2 Sat by Pulse 100 100 100 Oximetry 08/31/20 08/31/20 08/31/20 03:20 03:30 03:40 Temperature Pulse Rate 104 H 102 H 100 H Pulse Rate [ Bilateral Throughout] Pulse Rate [ From Monitor] Respiratory 33 H 30 H 29 H Rate Respiratory Rate [Bilateral Throughout] Blood Pressure 108/80 108/80 108/80 O2 Sat by Pulse 99 99 99 Oximetry 08/31/20 08/31/20 08/31/20 03:50 04:00 04:10 Temperature 98.1 F Pulse Rate 101 H 96 H 100 H Pulse Rate [ Bilateral Throughout] Pulse Rate [ 101 H From Monitor] Respiratory 30 H 27 H 30 H Rate Respiratory Rate [Bilateral Throughout] Blood Pressure 108/80 116/69 116/69 O2 Sat by Pulse 99 99 100 Oximetry 08/31/20 08/31/20 08/31/20 04:20 04:30 04:40 Temperature Pulse Rate 103 H 100 H 102 H Pulse Rate [ Bilateral Throughout] Pulse Rate [ From Monitor] Respiratory 32 H 29 H 31 H Rate Respiratory Rate [Bilateral Throughout] Blood Pressure 116/69 116/69 116/69 O2 Sat by Pulse 99 99 98 Oximetry 08/31/20 08/31/20 08/31/20 04:50 05:00 05:10 Temperature Pulse Rate 98 H 103 H 106 H Pulse Rate [ 104 H Bilateral Throughout] Pulse Rate [ From Monitor] Respiratory 28 H 29 H 26 H Rate Respiratory 48 H Rate [Bilateral Throughout] Blood Pressure 116/69 102/75 102/75 O2 Sat by Pulse 98 98 98 Oximetry 08/31/20 08/31/20 08/31/20 05:14 05:20 05:30 Temperature Pulse Rate 108 H 104 H 100 H Pulse Rate [ Bilateral Throughout] Pulse Rate [ From Monitor] Respiratory 26 H 26 H Rate Respiratory Rate [Bilateral Throughout] Blood Pressure 102/75 102/75 102/75 O2 Sat by Pulse 100 100 Oximetry 08/31/20 08/31/20 08/31/20 05:40 05:50 06:00 Temperature Pulse Rate 112 H 111 H 108 H Pulse Rate [ Bilateral Throughout] Pulse Rate [ From Monitor] Respiratory 22 29 H 30 H Rate Respiratory Rate [Bilateral Throughout] Blood Pressure 102/75 102/75 106/73 O2 Sat by Pulse 99 96 94 Oximetry 08/31/20 08/31/20 08/31/20 06:10 06:20 07:00 Temperature Pulse Rate 106 H 105 H 99 H Pulse Rate [ Bilateral Throughout] Pulse Rate [ From Monitor] Respiratory 28 H 28 H 27 H Rate Respiratory Rate [Bilateral Throughout] Blood Pressure 106/73 106/73 112/65 O2 Sat by Pulse 97 97 100 Oximetry 08/31/20 08/31/20 08/31/20 08:00 09:36 09:51 Temperature 97.5 F L Pulse Rate 106 H 114 H Pulse Rate [ Bilateral Throughout] Pulse Rate [ 105 H From Monitor] Respiratory 28 H Rate Respiratory Rate [Bilateral Throughout] Blood Pressure 123/82 118/87 O2 Sat by Pulse 98 97 Oximetry 08/31/20 09:53 Temperature Pulse Rate Pulse Rate [ 115 H Bilateral Throughout] Pulse Rate [ From Monitor] Respiratory Rate Respiratory 20 Rate [Bilateral Throughout] Blood Pressure O2 Sat by Pulse Oximetry Constitutional: other (on bipap mild to moderate distress) ENT: oropharynx moist Neck: supple Effort: mildly labored Ascultation: Bilateral: diminished breath sounds, wheezes CBC and BMP: 08/31/20 02:11 08/30/20 07:10 ABG, PT/INR, D-dimer: ABG ABG pH 7.393 (7.320-7.450) 08/31/20 10:44 POC ABG pCO2 48.4 mmHg (32.0-48.0) H 08/31/20 10:44 POC ABG pO2 80.0 mmHg (83-108) L 08/31/20 10:44 POC ABG HCO3 28.8 08/31/20 10:44 ABG O2 Saturation 95.3 (0-100) 08/31/20 10:44 PT/INR, D-dimer PT 14.0 Sec. (12.2-14.9) 08/30/20 07:10 INR 1.09 (0.87-1.13) 08/30/20 07:10 D-Dimer 1038.61 ng/mlDDU (0-234) H 08/29/20 14:02 Abnormal lab findings: Abnormal Labs 08/29/20 08/29/20 08/29/20 00:06 00:06 14:02 Hgb Hct MCV 83 L RDW 20.4 H Plt Count 496 H Lymph % (Auto) [place] % (Auto) Lymph # (Auto) Seg Neutrophils % Seg Neuts % (Manual) 85.0 H Lymphocytes % (Manual) 12.0 L Seg Neutrophils # Seg Neutrophils # Man 8.2 H D-Dimer 1038.61 H Heparin Anti-Xa Level ABG pH POC ABG pCO2 POC ABG pO2 ABG Potassium ABG Chloride ABG Glucose BUN Glucose 125 H POC Glucose Lactate Dehydrogenase C-Reactive Protein Arterial Blood Glucose 08/29/20 08/29/20 08/30/20 15:05 18:34 00:36 Hgb Hct MCV RDW Plt Count Lymph % (Auto) [place] % (Auto) Lymph # (Auto) Seg Neutrophils % Seg Neuts % (Manual) Lymphocytes % (Manual) Seg Neutrophils # Seg Neutrophils # Man D-Dimer Heparin Anti-Xa Level 1.38 H ABG pH 7.280 L POC ABG pCO2 57.9 H POC ABG pO2 112.1 H ABG Potassium 4.7 H ABG Chloride ABG Glucose 143 H BUN Glucose POC Glucose Lactate Dehydrogenase 261 H C-Reactive Protein 1.50 H Arterial Blood Glucose 143 H 08/30/20 08/30/20 08/30/20 07:10 07:10 08:30 Hgb 10.1 L D Hct 30.3 L D MCV RDW 19.8 H Plt Count 560 H 84 L Lymph % (Auto) 7.1 L [place] % (Auto) Lymph # (Auto) 0.7 L Seg Neutrophils % 87.8 H Seg Neuts % (Manual) Lymphocytes % (Manual) Seg Neutrophils # 9.0 H Seg Neutrophils # Man D-Dimer Heparin Anti-Xa Level ABG pH POC ABG pCO2 POC ABG pO2 ABG Potassium ABG Chloride ABG Glucose BUN 34 H Glucose 148 H POC Glucose Lactate Dehydrogenase C-Reactive Protein Arterial Blood Glucose 08/30/20 08/30/20 08/30/20 08:44 11:25 12:14 Hgb Hct MCV RDW 19.6 H Plt Count 575 H D Lymph % (Auto) 6.0 L [place] % (Auto) 7.9 H Lymph # (Auto) 0.6 L Seg Neutrophils % 85.7 H Seg Neuts % (Manual) Lymphocytes % (Manual) Seg Neutrophils # 8.8 H Seg Neutrophils # Man D-Dimer Heparin Anti-Xa Level ABG pH 7.309 L POC ABG pCO2 58.5 H POC ABG pO2 ABG Potassium ABG Chloride ABG Glucose 168 H BUN Glucose POC Glucose 124 H Lactate Dehydrogenase C-Reactive Protein Arterial Blood Glucose 168 H 08/30/20 08/30/20 08/31/20 16:06 17:24 02:11 Hgb Hct MCV RDW Plt Count 540 H Lymph % (Auto) [place] % (Auto) Lymph # (Auto) Seg Neutrophils % Seg Neuts % (Manual) Lymphocytes % (Manual) Seg Neutrophils # Seg Neutrophils # Man D-Dimer Heparin Anti-Xa Level 0.99 H ABG pH POC ABG pCO2 POC ABG pO2 ABG Potassium ABG Chloride ABG Glucose BUN Glucose POC Glucose 138 H Lactate Dehydrogenase C-Reactive Protein Arterial Blood Glucose 08/31/20 08/31/20 02:11 10:44 Hgb Hct MCV RDW Plt Count Lymph % (Auto) [place] % (Auto) Lymph # (Auto) Seg Neutrophils % Seg Neuts % (Manual) Lymphocytes % (Manual) Seg Neutrophils # Seg Neutrophils # Man D-Dimer Heparin Anti-Xa Level 0.80 H ABG pH POC ABG pCO2 48.4 H POC ABG pO2 80.0 L ABG Potassium ABG Chloride 97.0 L ABG Glucose 151 H BUN Glucose POC Glucose Lactate Dehydrogenase C-Reactive Protein Arterial Blood Glucose 151 H
[2020-08-31] MEDS: buPROPion XL 150 MG TAB PO SCH (12:28)
[2020-08-31] MEDS: oxyCODONE /ACETAMINOPHEN 5-325MG TAB PO PRN ×2 (15:11→20:31)
[2020-08-31] MEDS: NICOTINE 21 MG/24 HR PATCH TD SCH (16:21)
[2020-08-31] MEDS: HEPARIN/ 0.45% NACL DRIP 25,000 UNIT/500 ML BAG IV SCH (17:52)
[2020-08-31] MEDS ORDERED: MORPHINE 2 MG/1 ML INJ IV ONE (23:41)
[2020-09-01] MEDS: LORazepam 2 MG/ML VIAL IV PRN ×3 (01:01→13:46)
[2020-09-01] MEDS: ALBUTEROL 2.5 MG/3 ML NEBU IH SCH ×5 (04:45→20:32)
[2020-09-01] MEDS: methylPREDNISolone Sod Succinate 125 MG/2 ML INJ IV SCH ×4 (05:57→23:10)
[2020-09-01 06:00] LABS: Hematocrit 37.2 % (35.5-45.6); Mean Corpuscular HGB Conc 32 % (32-34); Mean Corpuscular Volume 84 fl (84-94); Platelet Count 508 K/mm3 (140-440); Red Blood Count 4.46 M/mm3 (3.65-5.03); Red Cell Distribution Width 19.7 % (13.2-15.2)
[2020-09-01 06:19] LABS: BUN/Creatinine Ratio 41; Blood Urea Nitrogen 45 mg/dL (9-20); Hemolysis Index 0
[2020-09-01] MEDS: oxyCODONE /ACETAMINOPHEN 5-325MG TAB PO PRN ×3 (08:00→21:43)
[2020-09-01] MEDS: ALPRAZolam 0.25 MG TAB PO PRN (08:13)
[2020-09-01] MEDS: BUDESONIDE 0.5 MG/2 ML NEBU IH SCH ×2 (08:30→20:32)
--- NOTE | 2020-09-01 08:43 | Vascular Lab Report ---
DUPLEX DOPPLER LOWER EXTREMITY VEINS, BILATERAL INDICATION / CLINICAL INFORMATION: DVT. Lower extremity pain and swelling. TECHNIQUE: Duplex doppler imaging was performed through the veins of both lower extremities using venous katina gabby and other maneuvers. COMPARISON: None available. FINDINGS: Right Common Femoral vein: Negative. Right Femoral vein: Negative. Right Popliteal vein: Negative. Right Calf veins: Negative. Left Common Femoral vein: Negative. Left Femoral vein: Negative. Left Popliteal vein: Negative. Left Calf veins: Negative. Additional findings: None. IMPRESSION: 1. No sonographic evidence for DVT in either lower extremity. Signer Name: Julio Cesar Rowley MD Signed: 08/30/2020 1:08 PM Workstation Name: [id number]
[2020-09-01] MEDS ORDERED: SODIUM POLYSTYRENE 15 GM/60 ML ORAL LIQD PO ONE (09:00)
[2020-09-01] MEDS: buPROPion XL 150 MG TAB PO SCH (09:48)
[2020-09-01] MEDS: LISINOPRIL 40 MG TAB PO SCH (09:48)
[2020-09-01] MEDS: clonazePAM 0.5 MG TAB PO SCH ×2 (10:54→21:44)
[2020-09-01] MEDS: CLOPIDOGREL 75 MG TAB PO SCH (10:55)
--- NOTE | 2020-09-01 11:43 | Progress Note ---
Assessment and Plan 55 y/o male with acute exacerbation of COPD and acute respiratory 09/01/20: Continue steroids at current dosing and frequency. Continue Pulmicort and scheduled duonebs. Will try BID klonopin as patient taxes a lot of xanax at home for anxiety. Dopplers' negative and pulm status is improving, will stop heparin and hold on CTA for now. Continue nicotine patch and Wellbutrin XL. Continue ICU care for at least another 24 hours to make sure patient does not get worse. 1. Change steroids to 60q6 2. continue pulmicort BID and scheduled duonebs 3. Limit volume, hold on diuretic therapy for now. 4. Follow up vascular labs to see if VTE is present. If so, no need for CTA and continue anticoagulation. If negative will attempt to lie flat here in unit prior to transport for CTA. 5. Increase patch to 21 and start Wellbutrin 150XL daily as patient requests help with stopping smoking. could move to step down but no beds so can stay in unit until respiratory status is more stable. Maybe ready for transfer out later today vs tomorrow morning. Subjective Date of service: 09/01/20 Interval history: More anxious and increased work of breathing this am. Got ativan 2x last night and xanax this am, no real improvement. Back on [facility] at 15 an d 40 with sats in the mid 90's. Objective Vital Signs - 12hr 09/01/20 09/01/20 09/01/20 00:00 01:01 02:01 Temperature 97.7 F Pulse Rate 108 H 116 H 113 H Pulse Rate [ Bilateral Throughout] Pulse Rate [ 107 H From Monitor] Respiratory 20 21 23 Rate Respiratory Rate [Bilateral Throughout] Blood Pressure 125/71 125/71 134/84 O2 Sat by Pulse 94 91 Oximetry 09/01/20 09/01/20 09/01/20 03:00 04:00 04:47 Temperature 98.8 F Pulse Rate 108 H 104 H Pulse Rate [ 110 H Bilateral Throughout] Pulse Rate [ 101 H From Monitor] Respiratory 36 H 28 H Rate Respiratory 25 H Rate [Bilateral Throughout] Blood Pressure 149/96 141/86 O2 Sat by Pulse 97 98 Oximetry 09/01/20 09/01/20 09/01/20 05:00 06:01 07:00 Temperature Pulse Rate 112 H 111 H 103 H Pulse Rate [ Bilateral Throughout] Pulse Rate [ From Monitor] Respiratory 31 H 26 H 25 H Rate Respiratory Rate [Bilateral Throughout] Blood Pressure 161/85 161/85 138/83 O2 Sat by Pulse 96 94 99 Oximetry 09/01/20 09/01/20 09/01/20 08:00 08:01 08:20 Temperature 97.9 F Pulse Rate 116 H 116 H Pulse Rate [ 117 H Bilateral Throughout] Pulse Rate [ 116 H From Monitor] Respiratory 37 H 33 H Rate Respiratory 31 H Rate [Bilateral Throughout] Blood Pressure 158/92 O2 Sat by Pulse 96 93 Oximetry 09/01/20 09/01/20 09/01/20 09:00 09:02 09:48 Temperature Pulse Rate 116 H 112 H Pulse Rate [ Bilateral Throughout] Pulse Rate [ From Monitor] Respiratory 39 H Rate Respiratory Rate [Bilateral Throughout] Blood Pressure 140/97 140/97 O2 Sat by Pulse 91 97 Oximetry 09/01/20 10:00 Temperature Pulse Rate 115 H Pulse Rate [ Bilateral Throughout] Pulse Rate [ From Monitor] Respiratory 34 H Rate Respiratory Rate [Bilateral Throughout] Blood Pressure 142/94 O2 Sat by Pulse 95 Oximetry Constitutional: other (on bipap mild to moderate distress) ENT: oropharynx moist Neck: supple Effort: mildly labored Ascultation: Bilateral: diminished breath sounds, wheezes CBC and BMP: 09/01/20 05:00 09/01/20 05:00 ABG, PT/INR, D-dimer: ABG ABG pH 7.393 (7.320-7.450) 08/31/20 10:44 POC ABG pCO2 48.4 mmHg (32.0-48.0) H 08/31/20 10:44 POC ABG pO2 80.0 mmHg (83-108) L 08/31/20 10:44 POC ABG HCO3 28.8 08/31/20 10:44 ABG O2 Saturation 95.3 (0-100) 08/31/20 10:44 PT/INR, D-dimer PT 14.0 Sec. (12.2-14.9) 08/30/20 07:10 INR 1.09 (0.87-1.13) 08/30/20 07:10 D-Dimer 1038.61 ng/mlDDU (0-234) H 08/29/20 14:02 Abnormal lab findings: Abnormal Labs 08/29/20 08/29/20 08/29/20 00:06 00:06 14:02 WBC Hgb Hct MCV 83 L MCH RDW 20.4 H Plt Count 496 H Lymph % (Auto) [place] % (Auto) Lymph # (Auto) Seg Neutrophils % Seg Neuts % (Manual) 85.0 H Lymphocytes % (Manual) 12.0 L Seg Neutrophils # Seg Neutrophils # Man 8.2 H D-Dimer 1038.61 H Heparin Anti-Xa Level ABG pH POC ABG pCO2 POC ABG pO2 ABG Potassium ABG Chloride ABG Glucose Potassium Chloride Carbon Dioxide BUN Glucose 125 H POC Glucose Lactate Dehydrogenase C-Reactive Protein Arterial Blood Glucose 08/29/20 08/29/20 08/30/20 15:05 18:34 00:36 WBC Hgb Hct MCV MCH RDW Plt Count Lymph % (Auto) [place] % (Auto) Lymph # (Auto) Seg Neutrophils % Seg Neuts % (Manual) Lymphocytes % (Manual) Seg Neutrophils # Seg Neutrophils # Man D-Dimer Heparin Anti-Xa Level 1.38 H ABG pH 7.280 L POC ABG pCO2 57.9 H POC ABG pO2 112.1 H ABG Potassium 4.7 H ABG Chloride ABG Glucose 143 H Potassium Chloride Carbon Dioxide BUN Glucose POC Glucose Lactate Dehydrogenase 261 H C-Reactive Protein 1.50 H Arterial Blood Glucose 143 H 08/30/20 08/30/20 08/30/20 07:10 07:10 08:30 WBC Hgb 10.1 L D Hct 30.3 L D MCV MCH RDW 19.8 H Plt Count 560 H 84 L Lymph % (Auto) 7.1 L [place] % (Auto) Lymph # (Auto) 0.7 L Seg Neutrophils % 87.8 H Seg Neuts % (Manual) Lymphocytes % (Manual) Seg Neutrophils # 9.0 H Seg Neutrophils # Man D-Dimer Heparin Anti-Xa Level ABG pH POC ABG pCO2 POC ABG pO2 ABG Potassium ABG Chloride ABG Glucose Potassium Chloride Carbon Dioxide BUN 34 H Glucose 148 H POC Glucose Lactate Dehydrogenase C-Reactive Protein Arterial Blood Glucose 08/30/20 08/30/20 08/30/20 08:44 11:25 12:14 WBC Hgb Hct MCV MCH RDW 19.6 H Plt Count 575 H D Lymph % (Auto) 6.0 L [place] % (Auto) 7.9 H Lymph # (Auto) 0.6 L Seg Neutrophils % 85.7 H Seg Neuts % (Manual) Lymphocytes % (Manual) Seg Neutrophils # 8.8 H Seg Neutrophils # Man D-Dimer Heparin Anti-Xa Level ABG pH 7.309 L POC ABG pCO2 58.5 H POC ABG pO2 ABG Potassium ABG Chloride ABG Glucose 168 H Potassium Chloride Carbon Dioxide BUN Glucose POC Glucose 124 H Lactate Dehydrogenase C-Reactive Protein Arterial Blood Glucose 168 H 08/30/20 08/30/20 08/31/20 16:06 17:24 02:11 WBC Hgb Hct MCV MCH RDW Plt Count 540 H Lymph % (Auto) [place] % (Auto) Lymph # (Auto) Seg Neutrophils % Seg Neuts % (Manual) Lymphocytes % (Manual) Seg Neutrophils # Seg Neutrophils # Man D-Dimer Heparin Anti-Xa Level 0.99 H ABG pH POC ABG pCO2 POC ABG pO2 ABG Potassium ABG Chloride ABG Glucose Potassium Chloride Carbon Dioxide BUN Glucose POC Glucose 138 H Lactate Dehydrogenase C-Reactive Protein Arterial Blood Glucose 08/31/20 08/31/20 08/31/20 02:11 10:44 11:11 WBC Hgb Hct MCV MCH RDW Plt Count Lymph % (Auto) [place] % (Auto) Lymph # (Auto) Seg Neutrophils % Seg Neuts % (Manual) Lymphocytes % (Manual) Seg Neutrophils # Seg Neutrophils # Man D-Dimer Heparin Anti-Xa Level 0.80 H 0.78 H ABG pH POC ABG pCO2 48.4 H POC ABG pO2 80.0 L ABG Potassium ABG Chloride 97.0 L ABG Glucose 151 H Potassium Chloride Carbon Dioxide BUN Glucose POC Glucose Lactate Dehydrogenase C-Reactive Protein Arterial Blood Glucose 151 H 09/01/20 09/01/20 05:00 05:00 WBC 14.4 H Hgb Hct MCV MCH 27 L RDW 19.7 H Plt Count 508 H Lymph % (Auto) [place] % (Auto) Lymph # (Auto) Seg Neutrophils % Seg Neuts % (Manual) Lymphocytes % (Manual) Seg Neutrophils # Seg Neutrophils # Man D-Dimer Heparin Anti-Xa Level ABG pH POC ABG pCO2 POC ABG pO2 ABG Potassium ABG Chloride ABG Glucose Potassium 5.1 H Chloride 96.4 L Carbon Dioxide 32 H BUN 45 H Glucose 135 H POC Glucose Lactate Dehydrogenase C-Reactive Protein Arterial Blood Glucose
--- NOTE | 2020-09-01 16:04 | Progress Note ---
Assessment and Plan Assessment and plan: This is a 55-year-old male with asthma, nicotine dependence and hypertension who was admitted with asthma exacerbation, acute hypoxic respiratory failure. Acute hypoxic respiratory failure Acute asthma exacerbation Elevated D-dimer Hyperkalemia Right inguinal hernia Thrombocytosis -[facility], general surgery consulted, patient recommendations -S/p BiPAP therapy -Wean to high flow nasal cannula -Pulmonary hygiene -Continue with prednisone with taper -Continue Pulmicort and scheduled DuoNebs -Nicotine patch/Wellbutrin XL -Discontinue heparin drip -Bilateral lower extremity Doppler ultrasounds negative for DVT -Cardiac diet -Resume home Plavix, lisinopril and titrate as needed -Blood pressure monitor per protocol -Outpatient follow-up for right inguinal hernia -Trend CBC, BMP DVT prophylaxis: SCDs to bilateral lower extremity while in bed, Lovenox subcu Disposition: ICU for now Critical care statement The high probability OF a clinically significant sudden or life-threatening deterioration of the cardiorespiratory system and endocrine system required my full and direct attention, intervention and postoperative management. The aggregate critical care time was 40 minutes. The time is in addition to time spent performing reported procedures but includes the followin: Data review and interpretation 2: Patient assessment and monitoring of vital signs 3: Documentation 4:: Medication orders and management Advance Directives: Yes (Full code) History Interval history: This is a 55-year-old male with asthma (requiring intubation x2 for acute exacerbations), nicotine dependence and hypertension who presented to the emerg ency department on 08/29 complaining of shortness of breath. Upon arrival to the emergency department patient was wheezing and having labored breathing and placed on BiPAP. Patient continued to have increased work of breathing despite nebulizing treatments in the emergency department. CXR did not show any acute findings and labs were unremarkable. Patient was admitted to the hospital service with asthma exacerbation and [facility] and surgery were consulted. 08/29. Patient seen and examined at bedside this morning. Patient is still wheezing. Remains on BiPAP. Increase steroids to 80 mg every 6. Pulmonology consulted. Started patient on albuterol every 4 scheduled. May need to transfer to [facility] if no improve in the next 3 to 4 hours. 08/30. Still remains on BiPAP. Remains on bronchodilators and Solu-Medrol 100 q. 6. Blood pressure elevated so has been started on IV blood pressure med ications. Pulmonology is following. Patient may need intubation if not improved. 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 He complains of right inguinal pain. Will consult surgery for evaluation. He has no signs of bowel obstruction 08/31: Patient was able to be taken off BiPAP and placed on high flow nasal cannula another time my examination he was on 3 L 60%. Bilateral lower extremity Dopplers are pending. [facility] decreased steroids to 60 every 6. RN attempted trial lying flat in the unit however patient was unable to lay flat without shortness of breath. Nicotine patch given increased to 21 mcg and Wellbutrin started to aid in smoking cessation. 09/01: Overnight the patient had severe anxiety and agitation and was given IV Ativan and has self reported confusion per RN overnight. Patient refused BiPAP therapy overnight and was rested on nasal cannula. This morning patient is high flow nasal cannula at 15 L 40%. [facility] has ordered BID Klonopin as patient takes a lot of xanax at home for anxiety. BLE Doppler negative for DVT and given improved pulmamory status [facility] has stopped heparin gtt put CTA on hold for now. We will restart his home Plavix. Possible transfer to floor tomorrow. Patient has hyperkalemia today and was given Kayexalate. Hospitalist Physical - Constitutional Vitals: Temp Pulse Resp BP Pulse Ox 97.8 F 119 H 33 H 142/94 95 09/01/20 12:00 09/01/20 15:30 09/01/20 15:30 09/01/20 10:00 09/01/20 10:00 General appearance: Present: mild distress, well-nourished - EENT Eyes: Present: PERRL, EOM intact ENT: hearing intact, clear oral mucosa, dentition normal - Neck Neck: Present: normal ROM - Respiratory Respiratory effort: labored, accessory muscle use Respiratory: bilateral: diminished, wheezing - Cardiovascular Rhythm: regular Heart Sounds: Present: S1 & S2. Absent: systolic murmur, diastolic murmur - Extremities Extremities: no ischemia, pulses intact, pulses symmetrical, No edema, normal temperature, normal color, Full ROM Peripheral Pulses: within normal limits - Abdominal General gastrointestinal: soft, non-tender, non-distended, normal bowel sounds - Integumentary Integumentary: Present: clear, warm, dry - Psychiatric Psychiatric: cooperative - Neurologic Neurologic: CNII-XII intact, no focal deficits, moves all extremities - Allied Health Allied health notes reviewed: nursing, RT, social work Results - Labs CBC & Chem 7: 09/01/20 05:00 09/01/20 05:00 Labs: Laboratory Last Values WBC 14.4 K/mm3 (4.5-11.0) H 09/01/20 05:00 RBC 4.46 M/mm3 (3.65-5.03) 09/01/20 05:00 Hgb 12.0 gm/dl (11.8-15.2) 09/01/20 05:00 Hct 37.2 % (35.5-45.6) 09/01/20 05:00 MCV 84 fl (84-94) 09/01/20 05:00 MCH 27 pg (28-32) L 09/01/20 05:00 MCHC 32 % (32-34) 09/01/20 05:00 RDW 19.7 % (13.2-15.2) H 09/01/20 05:00 Plt Count 508 K/mm3 (140-440) H 09/01/20 05:00 Lymph % (Auto) 6.0 % (13.4-35.0) L 08/30/20 11:25 [place] % (Auto) 7.9 % (0.0-7.3) H 08/30/20 11:25 Eos % (Auto) 0.0 % (0.0-4.3) 08/30/20 11:25 Baso % (Auto) 0.4 % (0.0-1.8) 08/30/20 11:25 Lymph # (Auto) 0.6 K/mm3 (1.2-5.4) L 08/30/20 11:25 [place] # (Auto) 0.8 K/mm3 (0.0-0.8) 08/30/20 11:25 Eos # (Auto) 0.0 K/mm3 (0.0-0.4) 08/30/20 11:25 Baso # (Auto) 0.0 K/mm3 (0.0-0.1) 08/30/20 11:25 Add Manual Diff Complete 08/29/20 00:06 Total Counted 100 08/29/20 00:06 Seg Neutrophils % 85.7 % (40.0-70.0) H 08/30/20 11:25 Seg Neuts % (Manual) 85.0 % (40.0-70.0) H 08/29/20 00:06 Band Neutrophils % 1.0 % 08/29/20 00:06 Lymphocytes % (Manual) 12.0 % (13.4-35.0) L 08/29/20 00:06 Monocytes % (Manual) 2.0 % (0.0-7.3) 08/29/20 00:06 Nucleated RBC % Not Reportable 08/29/20 00:06 Seg Neutrophils # 8.8 K/mm3 (1.8-7.7) H 08/30/20 11:25 Seg Neutrophils # Man 8.2 K/mm3 (1.8-7.7) H 08/29/20 00:06 Band Neutrophils # 0.1 K/mm3 08/29/20 00:06 Lymphocytes # (Manual) 1.2 K/mm3 (1.2-5.4) 08/29/20 00:06 Abs React Lymphs (Man) 0.0 K/mm3 08/29/20 00:06 Monocytes # (Manual) 0.2 K/mm3 (0.0-0.8) 08/29/20 00:06 Eosinophils # (Manual) 0.0 K/mm3 (0.0-0.4) 08/29/20 00:06 Basophils # (Manual) 0.0 K/mm3 (0.0-0.1) 08/29/20 00:06 Metamyelocytes # 0.0 K/mm3 08/29/20 00:06 Myelocytes # 0.0 K/mm3 08/29/20 00:06 Promyelocytes # 0.0 K/mm3 08/29/20 00:06 Blast Cells # 0.0 K/mm3 08/29/20 00:06 WBC Morphology Not Reportable 08/29/20 00:06 Hypersegmented Neuts Not Reportable 08/29/20 00:06 Hyposegmented Neuts Not Reportable 08/29/20 00:06 Hypogranular Neuts Not Reportable 08/29/20 00:06 Smudge Cells Not Reportable 08/29/20 00:06 Toxic Granulation Not Reportable 08/29/20 00:06 Toxic Vacuolation Not Reportable 08/29/20 00:06 Dohle Bodies Not Reportable 08/29/20 00:06 Pelger-Huet Anomaly Not Reportable 08/29/20 00:06 Galo Rods Not Reportable 08/29/20 00:06 Platelet Estimate Consistent w auto 08/29/20 00:06 Clumped Platelets Not Reportable 08/29/20 00:06 Plt Clumps, EDTA Not Reportable 08/29/20 00:06 Large Platelets Not Reportable 08/29/20 00:06 Giant Platelets Not Reportable 08/29/20 00:06 Platelet Satelliting Not Reportable 08/29/20 00:06 Plt Morphology Comment Not Reportable 08/29/20 00:06 RBC Morphology Not Reportable 08/29/20 00:06 Dimorphic RBCs Not Reportable 08/29/20 00:06 Polychromasia Not Reportable 08/29/20 00:06 Hypochromasia Not Reportable 08/29/20 00:06 Poikilocytosis Not Reportable 08/29/20 00:06 Anisocytosis 1+ 08/29/20 00:06 Microcytosis Not Reportable 08/29/20 00:06 Macrocytosis Not Reportable 08/29/20 00:06 Spherocytes Not Reportable 08/29/20 00:06 Pappenheimer Bodies Not Reportable 08/29/20 00:06 Sickle Cells Not Reportable 08/29/20 00:06 Target Cells Not Reportable 08/29/20 00:06 Tear Drop Cells Not Reportable 08/29/20 00:06 Ovalocytes Not Reportable 08/29/20 00:06 Helmet Cells Not Reportable 08/29/20 00:06 Nieto-Lanagan Bodies Not Reportable 08/29/20 00:06 [place] Rings Not Reportable 08/29/20 00:06 Nichole Cells Not Reportable 08/29/20 00:06 Bite Cells Not Reportable 08/29/20 00:06 Crenated Cell Not Reportable 08/29/20 00:06 Elliptocytes Not Reportable 08/29/20 00:06 Acanthocytes (Spur) Not Reportable 08/29/20 00:06 Rouleaux Not Reportable 08/29/20 00:06 Hemoglobin C Crystals Not Reportable 08/29/20 00:06 Schistocytes Not Reportable 08/29/20 00:06 Malaria parasites Not Reportable 08/29/20 00:06 Lobo Bodies Not Reportable 08/29/20 00:06 Hem Pathologist Commnt No 08/29/20 00:06 PT 14.0 Sec. (12.2-14.9) 08/30/20 07:10 INR 1.09 (0.87-1.13) 08/30/20 07:10 APTT 34.5 Sec. (24.2-36.6) 08/29/20 18:34 D-Dimer 1038.61 ng/mlDDU (0-234) H 08/29/20 14:02 Heparin Anti-Xa Level 0.57 U.I./ml (0.3-0.7) 08/31/20 18:58 ABG pH 7.393 (7.320-7.450) 08/31/20 10:44 POC ABG pCO2 48.4 mmHg (32.0-48.0) H 08/31/20 10:44 POC ABG pO2 80.0 mmHg (83-108) L 08/31/20 10:44 POC ABG HCO3 28.8 08/31/20 10:44 ABG O2 Saturation 95.3 (0-100) 08/31/20 10:44 POC ABG Base Excess 3.2 08/31/20 10:44 ABG Hemoglobin 13.0 (12.0-17.5) 08/31/20 10:44 ABG Oxyhemoglobin 94.3 (94-98) 08/31/20 10:44 ABG Methemoglobin 0.3 (0.0-1.5) 08/31/20 10:44 ABG Sodium 137.2 mmol/L (136.0-145.0) 08/31/20 10:44 ABG Potassium 4.5 mmol/L (3.40-4.50) 08/31/20 10:44 ABG Chloride 97.0 mmol/L (98-107) L 08/31/20 10:44 ABG Glucose 151 mg/dL (65-95) H 08/31/20 10:44 Carboxyhemoglobin 0.8 (0.5-1.5) 08/31/20 10:44 FiO2 % 50.0 08/31/20 10:44 Sodium 138 mmol/L (137-145) 09/01/20 05:00 Potassium 5.1 mmol/L (3.6-5.0) H 09/01/20 05:00 Chloride 96.4 mmol/L (98-107) L 09/01/20 05:00 Carbon Dioxide 32 mmol/L (22-30) H 09/01/20 05:00 Anion Gap 15 mmol/L 09/01/20 05:00 BUN 45 mg/dL (9-20) H 09/01/20 05:00 Creatinine 1.1 mg/dL (0.8-1.3) 09/01/20 05:00 Estimated GFR > 60 ml/min 09/01/20 05:00 BUN/Creatinine Ratio 41 % 09/01/20 05:00 Glucose 135 mg/dL (75-100) H 09/01/20 05:00 POC Glucose 138 mg/dL (70-105) H 08/30/20 17:24 Calcium 10.0 mg/dL (8.4-10.2) 09/01/20 05:00 Ferritin 98.8 ng/mL (30.0-300.0) 08/29/20 18:34 Lactate Dehydrogenase 261 units/L (91-180) H 08/29/20 18:34 C-Reactive Protein 1.50 mg/dL (0.00-1.30) H 08/29/20 18:34 NT-Pro-B Natriuret Pep 483.2 pg/mL (0-900) 08/29/20 14:02 Procalcitonin 0.05 ng/mL (<0.15) 08/29/20 18:34 Arterial Blood Glucose 151 mg/dL (65-95) H 08/31/20 10:44 Arterial Blood Ionized Calcium 5.0 mg/dL (4.6-5.3) 08/31/20 10:44 Coronavirus (PCR) Negative (Negative) 08/29/20 Unknown Reza/IV: Voiding Method Urinal Active Medications - Current Medications Current Medications: Generic Name Dose Route Start Last Admin Trade Name Freq PRN Reason Stop Dose Admin Acetaminophen 650 mg 08/29/20 01:20 Acetaminophen 325 Mg Tab PO Q4H PRN Pain MILD(1-3)/Fever >100.5/ARRIAZA Albuterol 2.5 mg 08/30/20 12:45 09/01/20 15:50 Albuterol 2.5 Mg/3 Ml Nebu IH 2.5 mg Q4HRT CAROLE Administration Budesonide 0.5 mg 08/29/20 08:00 09/01/20 08:30 Budesonide 0.5 Mg/2 Ml Nebu IH 0.5 mg Q12HRT CAROLE Administration Bupropion HCl 150 mg 08/31/20 11:00 09/01/20 09:48 Bupropion Xl 150 Mg Tab PO 150 mg DAILY CAROLE Administration Clonazepam 1 mg 09/01/20 11:00 09/01/20 10:54 Clonazepam 0.5 Mg Tab PO 1 mg BID CAROLE Administration Clopidogrel Bisulfate 75 mg 09/01/20 11:00 09/01/20 10:55 Clopidogrel 75 Mg Tab PO 75 mg QDAY CAROLE Administration Enoxaparin Sodium 40 mg 09/01/20 22:00 Enoxaparin 40 Mg/0.4 Ml Inj SUB-Q QDAY@2200 CAROLE Levofloxacin/Dextrose 500 mg in 100 mls @ 100 mls/hr 08/29/20 12:00 09/01/20 11:46 Levaquin 500mg/100ml IV 09/02/20 12:59 100 mls/hr Q24H CAROLE Administration Protocol Labetalol HCl 10 mg 08/30/20 09:19 Labetalol 20 Mg/4 Ml Inj IV Q6H PRN SBP >170 or DBP >110 Lisinopril 40 mg 08/29/20 20:00 09/01/20 09:48 Lisinopril 40 Mg Tab PO 40 mg QDAY CAROLE Administration Lorazepam 1 mg 09/01/20 11:00 09/01/20 13:46 Lorazepam 2 Mg/Ml Vial IV 1 mg Q4H PRN Administration Anxiety Magnesium Hydroxide 30 ml 08/29/20 01:20 Magnesium Hydroxide (Mom) Oral Liqd Udc PO Q4H PRN Constipation Methylprednisolone Sodium Succinate 60 mg 08/31/20 12:00 09/01/20 11:46 Methylprednisolone Sod Succinate 125 Mg/2 Ml Inj IV 60 mg Q6H CAROLE Administration Nicotine 21 mg 08/31/20 16:00 08/31/20 16:21 Nicotine 21 Mg/24 Hr Patch TD 21 mg DAILY CAROLE Administration Ondansetron HCl 4 mg 08/29/20 01:20 Ondansetron 4 Mg/2 Ml Inj IV Q8H PRN Nausea And Vomiting Oxycodone/Acetaminophen 1 tab 08/31/20 14:08 09/01/20 13:47 Oxycodone /Acetaminophen 5-325mg Tab PO 1 tab Q6H PRN Administration Pain, Moderate (4-6) Sodium Chloride 10 ml 08/29/20 10:00 09/01/20 11:51 Sodium Chloride 0.9% 10 Ml Flush Syringe IV 10 ml BID CAROLE Administration Sodium Chloride 10 ml 08/29/20 01:20 Sodium Chloride 0.9% 10 Ml Flush Syringe IV PRN PRN LINE FLUSH
[2020-09-01] MEDS: ENOXAPARIN 40 MG/0.4 ML INJ SUB-Q SCH (21:44)
[2020-09-02] MEDS: ALBUTEROL 2.5 MG/3 ML NEBU IH SCH ×6 (00:38→20:40)
[2020-09-02] MEDS: oxyCODONE /ACETAMINOPHEN 5-325MG TAB PO PRN ×2 (05:38→15:41)
[2020-09-02] MEDS: methylPREDNISolone Sod Succinate 125 MG/2 ML INJ IV SCH ×4 (05:38→23:10)
[2020-09-02 05:59] LABS: Hematocrit 35.2 % (35.5-45.6); Hemoglobin 11.8 gm/dl (11.8-15.2)
[2020-09-02 06:35] LABS: BUN/Creatinine Ratio 39; Blood Urea Nitrogen 35 mg/dL (9-20); Calcium 9.8 mg/dL (8.4-10.2); Hemolysis Index 0
[2020-09-02] MEDS: LORazepam 2 MG/ML VIAL IV PRN ×2 (08:10→23:11)
[2020-09-02] MEDS: BUDESONIDE 0.5 MG/2 ML NEBU IH SCH ×2 (08:41→20:40)
[2020-09-02] MEDS: NICOTINE 21 MG/24 HR PATCH TD SCH (10:00)
[2020-09-02] MEDS: buPROPion XL 150 MG TAB PO SCH (10:01)
[2020-09-02] MEDS: clonazePAM 0.5 MG TAB PO SCH ×2 (10:01→21:10)
[2020-09-02] MEDS: LISINOPRIL 40 MG TAB PO SCH (10:01)
[2020-09-02] MEDS: CLOPIDOGREL 75 MG TAB PO SCH (10:01)
--- NOTE | 2020-09-02 11:53 | Progress Note ---
Assessment and Plan 55 y/o male with acute exacerbation of COPD and acute respiratory 09/02/20: Stable for transfer to floor today. Continue Klonopin and prn ativan therapy. Wean FiO2 for sats >88%. No CTA needed. Continue nicotine patch and wellbutrin XL. 09/01/20: Continue steroids at current dosing and frequency. Continue Pulmicort and scheduled duonebs. Will try BID klonopin as patient taxes a lot of xanax at home for anxiety. Dopplers' negative and pulm status is improving, will stop heparin and hold on CTA for now. Continue nicotine patch and Wellbutrin XL. Continue ICU care for at least another 24 hours to make sure patient does not get worse. 1. Change steroids to 60q6 2. continue pulmicort BID and scheduled duonebs 3. Limit volume, hold on diuretic therapy for now. 4. Follow up vascular labs to see if VTE is present. If so, no need for CTA and continue anticoagulation. If negative will attempt to lie flat here in unit prior to transport for CTA. 5. Increase patch to 21 and start Wellbutrin 150XL daily as patient requests help with stopping smoking. could move to step down but no beds so can stay in unit until respiratory status is more stable. Maybe ready for transfer out later today vs tomorrow morning. Subjective Date of service: 09/02/20 Interval history: No acute events overnight. Breathing is improved. Anxiety is improved. Objective Vital Signs - 12hr 09/02/20 09/02/20 09/02/20 00:00 00:38 01:00 Temperature 98.1 F Pulse Rate 120 H 113 H Pulse Rate [ 116 H Bilateral Throughout] Respiratory 20 31 H Rate Respiratory 30 H Rate [Bilateral Throughout] Blood Pressure 146/73 146/73 O2 Sat by Pulse 96 98 Oximetry 09/02/20 09/02/20 09/02/20 02:00 03:00 03:30 Temperature 97.9 F Pulse Rate 111 H 108 H Pulse Rate [ Bilateral Throughout] Respiratory 29 H 46 H Rate Respiratory Rate [Bilateral Throughout] Blood Pressure 123/97 135/81 O2 Sat by Pulse 89 96 Oximetry 09/02/20 09/02/20 09/02/20 04:00 05:00 06:01 Temperature Pulse Rate 103 H 100 H 102 H Pulse Rate [ Bilateral Throughout] Respiratory 24 25 H 33 H Rate Respiratory Rate [Bilateral Throughout] Blood Pressure 143/88 149/85 136/93 O2 Sat by Pulse 99 100 95 Oximetry 09/02/20 09/02/20 09/02/20 07:01 07:25 08:00 Temperature 98.2 F Pulse Rate 96 H 115 H Pulse Rate [ Bilateral Throughout] Respiratory 26 H Rate Respiratory Rate [Bilateral Throughout] Blood Pressure 143/85 O2 Sat by Pulse 90 100 Oximetry 09/02/20 09/02/20 09/02/20 08:01 09:00 09:01 Temperature Pulse Rate 111 H Pulse Rate [ 110 H Bilateral Throughout] Respiratory 21 Rate Respiratory 25 H Rate [Bilateral Throughout] Blood Pressure 143/85 136/88 O2 Sat by Pulse 97 90 Oximetry 09/02/20 09/02/20 09/02/20 09:08 09:23 10:00 Temperature Pulse Rate 123 H Pulse Rate [ Bilateral Throughout] Respiratory 28 H Rate Respiratory Rate [Bilateral Throughout] Blood Pressure 144/87 O2 Sat by Pulse 100 100 99 Oximetry 09/02/20 09/02/20 10:01 11:01 Temperature Pulse Rate 118 H 112 H Pulse Rate [ Bilateral Throughout] Respiratory 32 H Rate Respiratory Rate [Bilateral Throughout] Blood Pressure 144/87 143/84 O2 Sat by Pulse 93 Oximetry Constitutional: other (on bipap mild to moderate distress) ENT: oropharynx moist Neck: supple Effort: mildly labored Ascultation: Bilateral: diminished breath sounds, wheezes CBC and BMP: 09/02/20 05:28 09/02/20 05:28 ABG, PT/INR, D-dimer: ABG ABG pH 7.393 (7.320-7.450) 08/31/20 10:44 POC ABG pCO2 48.4 mmHg (32.0-48.0) H 08/31/20 10:44 POC ABG pO2 80.0 mmHg (83-108) L 08/31/20 10:44 POC ABG HCO3 28.8 08/31/20 10:44 ABG O2 Saturation 95.3 (0-100) 08/31/20 10:44 PT/INR, D-dimer PT 14.0 Sec. (12.2-14.9) 08/30/20 07:10 INR 1.09 (0.87-1.13) 08/30/20 07:10 D-Dimer 1038.61 ng/mlDDU (0-234) H 08/29/20 14:02 Abnormal lab findings: Abnormal Labs 08/29/20 08/29/20 08/29/20 00:06 00:06 14:02 WBC Hgb Hct MCV 83 L MCH RDW 20.4 H Plt Count 496 H Lymph % (Auto) [place] % (Auto) Lymph # (Auto) Seg Neutrophils % Seg Neuts % (Manual) 85.0 H Lymphocytes % (Manual) 12.0 L Seg Neutrophils # Seg Neutrophils # Man 8.2 H D-Dimer 1038.61 H Heparin Anti-Xa Level ABG pH POC ABG pCO2 POC ABG pO2 ABG Potassium ABG Chloride ABG Glucose Potassium Chloride Carbon Dioxide BUN Glucose 125 H POC Glucose Lactate Dehydrogenase C-Reactive Protein Arterial Blood Glucose 08/29/20 08/29/20 08/30/20 15:05 18:34 00:36 WBC Hgb Hct MCV MCH RDW Plt Count Lymph % (Auto) [place] % (Auto) Lymph # (Auto) Seg Neutrophils % Seg Neuts % (Manual) Lymphocytes % (Manual) Seg Neutrophils # Seg Neutrophils # Man D-Dimer Heparin Anti-Xa Level 1.38 H ABG pH 7.280 L POC ABG pCO2 57.9 H POC ABG pO2 112.1 H ABG Potassium 4.7 H ABG Chloride ABG Glucose 143 H Potassium Chloride Carbon Dioxide BUN Glucose POC Glucose Lactate Dehydrogenase 261 H C-Reactive Protein 1.50 H Arterial Blood Glucose 143 H 08/30/20 08/30/20 08/30/20 07:10 07:10 08:30 WBC Hgb 10.1 L D Hct 30.3 L D MCV MCH RDW 19.8 H Plt Count 560 H 84 L Lymph % (Auto) 7.1 L [place] % (Auto) Lymph # (Auto) 0.7 L Seg Neutrophils % 87.8 H Seg Neuts % (Manual) Lymphocytes % (Manual) Seg Neutrophils # 9.0 H Seg Neutrophils # Man D-Dimer Heparin Anti-Xa Level ABG pH POC ABG pCO2 POC ABG pO2 ABG Potassium ABG Chloride ABG Glucose Potassium Chloride Carbon Dioxide BUN 34 H Glucose 148 H POC Glucose Lactate Dehydrogenase C-Reactive Protein Arterial Blood Glucose 08/30/20 08/30/20 08/30/20 08:44 11:25 12:14 WBC Hgb Hct MCV MCH RDW 19.6 H Plt Count 575 H D Lymph % (Auto) 6.0 L [place] % (Auto) 7.9 H Lymph # (Auto) 0.6 L Seg Neutrophils % 85.7 H Seg Neuts % (Manual) Lymphocytes % (Manual) Seg Neutrophils # 8.8 H Seg Neutrophils # Man D-Dimer Heparin Anti-Xa Level ABG pH 7.309 L POC ABG pCO2 58.5 H POC ABG pO2 ABG Potassium ABG Chloride ABG Glucose 168 H Potassium Chloride Carbon Dioxide BUN Glucose POC Glucose 124 H Lactate Dehydrogenase C-Reactive Protein Arterial Blood Glucose 168 H 08/30/20 08/30/20 08/31/20 16:06 17:24 02:11 WBC Hgb Hct MCV MCH RDW Plt Count 540 H Lymph % (Auto) [place] % (Auto) Lymph # (Auto) Seg Neutrophils % Seg Neuts % (Manual) Lymphocytes % (Manual) Seg Neutrophils # Seg Neutrophils # Man D-Dimer Heparin Anti-Xa Level 0.99 H ABG pH POC ABG pCO2 POC ABG pO2 ABG Potassium ABG Chloride ABG Glucose Potassium Chloride Carbon Dioxide BUN Glucose POC Glucose 138 H Lactate Dehydrogenase C-Reactive Protein Arterial Blood Glucose 08/31/20 08/31/20 08/31/20 02:11 10:44 11:11 WBC Hgb Hct MCV MCH RDW Plt Count Lymph % (Auto) [place] % (Auto) Lymph # (Auto) Seg Neutrophils % Seg Neuts % (Manual) Lymphocytes % (Manual) Seg Neutrophils # Seg Neutrophils # Man D-Dimer Heparin Anti-Xa Level 0.80 H 0.78 H ABG pH POC ABG pCO2 48.4 H POC ABG pO2 80.0 L ABG Potassium ABG Chloride 97.0 L ABG Glucose 151 H Potassium Chloride Carbon Dioxide BUN Glucose POC Glucose Lactate Dehydrogenase C-Reactive Protein Arterial Blood Glucose 151 H 09/01/20 09/01/20 09/02/20 05:00 05:00 05:28 WBC 14.4 H Hgb Hct 35.2 L MCV MCH 27 L RDW 19.7 H Plt Count 508 H Lymph % (Auto) [place] % (Auto) Lymph # (Auto) Seg Neutrophils % Seg Neuts % (Manual) Lymphocytes % (Manual) Seg Neutrophils # Seg Neutrophils # Man D-Dimer Heparin Anti-Xa Level ABG pH POC ABG pCO2 POC ABG pO2 ABG Potassium ABG Chloride ABG Glucose Potassium 5.1 H Chloride 96.4 L Carbon Dioxide 32 H BUN 45 H Glucose 135 H POC Glucose Lactate Dehydrogenase C-Reactive Protein Arterial Blood Glucose 09/02/20 05:28 WBC Hgb Hct MCV MCH RDW Plt Count Lymph % (Auto) [place] % (Auto) Lymph # (Auto) Seg Neutrophils % Seg Neuts % (Manual) Lymphocytes % (Manual) Seg Neutrophils # Seg Neutrophils # Man D-Dimer Heparin Anti-Xa Level ABG pH POC ABG pCO2 POC ABG pO2 ABG Potassium ABG Chloride ABG Glucose Potassium Chloride Carbon Dioxide 37 H BUN 35 H Glucose 149 H POC Glucose Lactate Dehydrogenase C-Reactive Protein Arterial Blood Glucose
--- NOTE | 2020-09-02 13:58 | Progress Note ---
Assessment and Plan Assessment and plan: This is a 55-year-old male with asthma, nicotine dependence and hypertension who was admitted with asthma exacerbation, acute hypoxic respiratory failure. Acute hypoxic respiratory failure Acute asthma exacerbation Elevated D-dimer Right inguinal hernia Thrombocytosis Leukocytosis (likely secondary to steroid use) -CCM, general surgery consulted, patient recommendations -S/p BiPAP therapy -Wean supplemental oxygenation as tolerated -Pulmonary hygiene -Continue with prednisone with taper -Continue Pulmicort and scheduled DuoNebs -Nicotine patch/Wellbutrin XL -S/p heparin drip, CTA chest canceled -Bilateral lower extremity Doppler ultrasounds negative for DVT -Cardiac diet -Resume home Plavix, lisinopril and titrate as needed -Blood pressure monitor per protocol -Outpatient follow-up for right inguinal hernia -Trend CBC, BMP DVT prophylaxis: SCDs to bilateral lower extremity while in bed, Lovenox subcu Disposition: Transfer to floor Critical care statement The high probability OF a clinically significant sudden or life-threatening deterioration of the cardiorespiratory system and endocrine system required my full and direct attention, intervention and postoperative management. The [facility] critical care time was 30 minutes. The time is in addition to time spent performing reported procedures but includes the followin: Data review and interpretation 2: Patient assessment and monitoring of vital signs 3: Documentation 4:: Medication orders and management Advance Directives: Yes (Full code) History Interval history: This is a 55-year-old male with asthma (requiring intubation x2 for acute exacerbations), nicotine dependence and hypertension who presented to the emergency department on 08/29 complaining of shortness of breath. Upon arrival to the emergency department patient was wheezing and having labored breathing and placed on BiPAP. Patient continued to have increased work of breathing despite nebulizing treatments in the emergency department. CXR did not show any acute findings and labs were unremarkable. Patient was admitted to the hospital service with asthma exacerbation and [facility] and surgery were consulted. 08/29. Patient seen and examined at bedside this morning. Patient is still wheezing. Remains on BiPAP. Increase steroids to 80 mg every 6. Pulmonology consulted. Started patient on albuterol every 4 scheduled. May need to transfer to [facility] if no improve in the next 3 to 4 hours. 08/30. Still remains on BiPAP. Remains on bronchodilators and Solu-Medrol 100 q. 6. Blood pressure elevated so has been started on IV blood pressure medications. Pulmonology is following. Patient may need intubation if not improved. 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 He complains of right inguinal pain. Will consult surgery for evaluation. He has no signs of bowel obstruction 08/31: Patient was able to be taken off BiPAP and placed on high flow nasal cannula another time my examination he was on 3 L 60%. Bilateral lower extremity Dopplers are pending. [facility] decreased steroids to 60 every 6. RN attempted trial lying flat in the unit however patient was unable to lay flat w ithout shortness of breath. Nicotine patch given increased to 21 mcg and Wellbutrin started to aid in smoking cessation. 09/01: Overnight the patient had severe anxiety and agitation and was given IV Ativan and has self reported confusion per RN overnight. Patient refused BiPAP therapy overnight and was rested on nasal cannula. This morning patient is high flow nasal cannula at 15 L 40%. [facility] has ordered BID Klonopin as patient takes a lot of xanax at home for anxiety. BLE Doppler negative for DVT and given improved pulmamory status [facility] has stopped heparin gtt put CTA on hold for now. We will restart his home Plavix. Possible transfer to floor tomorrow. Patient has hyperkalemia today and was given Kayexalate. 09/02: Potassium is within normal range, will transfer patient to floor today as he was dang; t be weaned to be weaned to 5 L nasal cannula this morning the time my examination. No acute events reported overnight. Self-reported anxiety and impending doom related to family member who is around patient's current age not surviving hospital stay. Attempted to ease anxiety with therapeutic communication. CTA cancelled. Hospitalist Physical - Constitutional Vitals: Temp Pulse Resp BP Pulse Ox 98.1 F 117 H 20 151/89 92 09/02/20 12:00 09/02/20 13:00 09/02/20 13:00 09/02/20 13:00 09/02/20 13:00 General appearance: Present: no acute distress, well-nourished - EENT Eyes: Present: PERRL, EOM intact ENT: poor dentition - Neck Neck: Present: normal ROM - Respiratory Respiratory effort: normal Respiratory: bilateral: wheezing - Cardiovascular Rhythm: regular Heart Sounds: Present: S1 & S2. Absent: systolic murmur, diastolic murmur - Extremities Extremities: no ischemia, pulses intact, pulses symmetrical, No edema, normal temperature, normal color, Full ROM Extremity abnormal: clubbing Peripheral Pulses: within normal limits - Abdominal General gastrointestinal: soft, non-tender, non-distended, normal bowel sounds - Integumentary Integumentary: Present: warm, dry - Psychiatric Psychiatric: appropriate mood/affect, cooperative - Neurologic Neurologic: CNII-XII intact, no focal deficits, moves all extremities - Allied Health Allied health notes reviewed: nursing, RT, social work, case management Results - Labs CBC & Chem 7: 09/02/20 05:28 09/02/20 05:28 Labs: Laboratory Last Values WBC 14.4 K/mm3 (4.5-11.0) H 09/01/20 05:00 RBC 4.46 M/mm3 (3.65-5.03) 09/01/20 05:00 Hgb 11.8 gm/dl (11.8-15.2) 09/02/20 05:28 Hct 35.2 % (35.5-45.6) L 09/02/20 05:28 MCV 84 fl (84-94) 09/01/20 05:00 MCH 27 pg (28-32) L 09/01/20 05:00 MCHC 32 % (32-34) 09/01/20 05:00 RDW 19.7 % (13.2-15.2) H 09/01/20 05:00 Plt Count 438 K/mm3 (140-440) 09/02/20 05:28 Lymph % (Auto) 6.0 % (13.4-35.0) L 08/30/20 11:25 [place] % (Auto) 7.9 % (0.0-7.3) H 08/30/20 11:25 Eos % (Auto) 0.0 % (0.0-4.3) 08/30/20 11:25 Baso % (Auto) 0.4 % (0.0-1.8) 08/30/20 11:25 Lymph # (Auto) 0.6 K/mm3 (1.2-5.4) L 08/30/20 11:25 [place] # (Auto) 0.8 K/mm3 (0.0-0.8) 08/30/20 11:25 Eos # (Auto) 0.0 K/mm3 (0.0-0.4) 08/30/20 11:25 Baso # (Auto) 0.0 K/mm3 (0.0-0.1) 08/30/20 11:25 Add Manual Diff Complete 08/29/20 00:06 Total Counted 100 08/29/20 00:06 Seg Neutrophils % 85.7 % (40.0-70.0) H 08/30/20 11:25 Seg Neuts % (Manual) 85.0 % (40.0-70.0) H 08/29/20 00:06 Band Neutrophils % 1.0 % 08/29/20 00:06 Lymphocytes % (Manual) 12.0 % (13.4-35.0) L 08/29/20 00:06 Monocytes % (Manual) 2.0 % (0.0-7.3) 08/29/20 00:06 Nucleated RBC % Not Reportable 08/29/20 00:06 Seg Neutrophils # 8.8 K/mm3 (1.8-7.7) H 08/30/20 11:25 Seg Neutrophils # Man 8.2 K/mm3 (1.8-7.7) H 08/29/20 00:06 Band Neutrophils # 0.1 K/mm3 08/29/20 00:06 Lymphocytes # (Manual) 1.2 K/mm3 (1.2-5.4) 08/29/20 00:06 Abs React Lymphs (Man) 0.0 K/mm3 08/29/20 00:06 Monocytes # (Manual) 0.2 K/mm3 (0.0-0.8) 08/29/20 00:06 Eosinophils # (Manual) 0.0 K/mm3 (0.0-0.4) 08/29/20 00:06 Basophils # (Manual) 0.0 K/mm3 (0.0-0.1) 08/29/20 00:06 Metamyelocytes # 0.0 K/mm3 08/29/20 00:06 Myelocytes # 0.0 K/mm3 08/29/20 00:06 Promyelocytes # 0.0 K/mm3 08/29/20 00:06 Blast Cells # 0.0 K/mm3 08/29/20 00:06 WBC Morphology Not Reportable 08/29/20 00:06 Hypersegmented Neuts Not Reportable 08/29/20 00:06 Hyposegmented Neuts Not Reportable 08/29/20 00:06 Hypogranular Neuts Not Reportable 08/29/20 00:06 Smudge Cells Not Reportable 08/29/20 00:06 Toxic Granulation Not Reportable 08/29/20 00:06 Toxic Vacuolation Not Reportable 08/29/20 00:06 Dohle Bodies Not Reportable 08/29/20 00:06 Pelger-Huet Anomaly Not Reportable 08/29/20 00:06 Galo Rods Not Reportable 08/29/20 00:06 Platelet Estimate Consistent w auto 08/29/20 00:06 Clumped Platelets Not Reportable 08/29/20 00:06 Plt Clumps, EDTA Not Reportable 08/29/20 00:06 Large Platelets Not Reportable 08/29/20 00:06 Giant Platelets Not Reportable 08/29/20 00:06 Platelet Satelliting Not Reportable 08/29/20 00:06 Plt Morphology Comment Not Reportable 08/29/20 00:06 RBC Morphology Not Reportable 08/29/20 00:06 Dimorphic RBCs Not Reportable 08/29/20 00:06 Polychromasia Not Reportable 08/29/20 00:06 Hypochromasia Not Reportable 08/29/20 00:06 Poikilocytosis Not Reportable 08/29/20 00:06 Anisocytosis 1+ 08/29/20 00:06 Microcytosis Not Reportable 08/29/20 00:06 Macrocytosis Not Reportable 08/29/20 00:06 Spherocytes Not Reportable 08/29/20 00:06 Pappenheimer Bodies Not Reportable 08/29/20 00:06 Sickle Cells Not Reportable 08/29/20 00:06 Target Cells Not Reportable 08/29/20 00:06 Tear Drop Cells Not Reportable 08/29/20 00:06 Ovalocytes Not Reportable 08/29/20 00:06 Helmet Cells Not Reportable 08/29/20 00:06 [place] Bodies Not Reportable 08/29/20 00:06 [place] Rings Not Reportable 08/29/20 00:06 Nichole Cells Not Reportable 08/29/20 00:06 Bite Cells Not Reportable 08/29/20 00:06 Crenated Cell Not Reportable 08/29/20 00:06 Elliptocytes Not Reportable 08/29/20 00:06 Acanthocytes (Spur) Not Reportable 08/29/20 00:06 Rouleaux Not Reportable 08/29/20 00:06 Hemoglobin C Crystals Not Reportable 08/29/20 00:06 Schistocytes Not Reportable 08/29/20 00:06 Malaria parasites Not Reportable 08/29/20 00:06 Lobo Bodies Not Reportable 08/29/20 00:06 Hem Pathologist Commnt No 08/29/20 00:06 PT 14.0 Sec. (12.2-14.9) 08/30/20 07:10 INR 1.09 (0.87-1.13) 08/30/20 07:10 APTT 34.5 Sec. (24.2-36.6) 08/29/20 18:34 D-Dimer 1038.61 ng/mlDDU (0-234) H 08/29/20 14:02 Heparin Anti-Xa Level 0.57 U.I./ml (0.3-0.7) 08/31/20 18:58 ABG pH 7.393 (7.320-7.450) 08/31/20 10:44 POC ABG pCO2 48.4 mmHg (32.0-48.0) H 08/31/20 10:44 POC ABG pO2 80.0 mmHg (83-108) L 08/31/20 10:44 POC ABG HCO3 28.8 08/31/20 10:44 ABG O2 Saturation 95.3 (0-100) 08/31/20 10:44 POC ABG Base Excess 3.2 08/31/20 10:44 ABG Hemoglobin 13.0 (12.0-17.5) 08/31/20 10:44 ABG Oxyhemoglobin 94.3 (94-98) 08/31/20 10:44 ABG Methemoglobin 0.3 (0.0-1.5) 08/31/20 10:44 ABG Sodium 137.2 mmol/L (136.0-145.0) 08/31/20 10:44 ABG Potassium 4.5 mmol/L (3.40-4.50) 08/31/20 10:44 ABG Chloride 97.0 mmol/L (98-107) L 08/31/20 10:44 ABG Glucose 151 mg/dL (65-95) H 08/31/20 10:44 Carboxyhemoglobin 0.8 (0.5-1.5) 08/31/20 10:44 FiO2 % 50.0 08/31/20 10:44 Sodium 141 mmol/L (137-145) 09/02/20 05:28 Potassium 4.5 mmol/L (3.6-5.0) 09/02/20 05:28 Chloride 99.2 mmol/L (98-107) 09/02/20 05:28 Carbon Dioxide 37 mmol/L (22-30) H 09/02/20 05:28 Anion Gap 9 mmol/L 09/02/20 05:28 BUN 35 mg/dL (9-20) H 09/02/20 05:28 Creatinine 0.9 mg/dL (0.8-1.3) 09/02/20 05:28 Estimated GFR > 60 ml/min 09/02/20 05:28 BUN/Creatinine Ratio 39 % 09/02/20 05:28 Glucose 149 mg/dL (75-100) H 09/02/20 05:28 POC Glucose 138 mg/dL (70-105) H 08/30/20 17:24 Calcium 9.8 mg/dL (8.4-10.2) 09/02/20 05:28 Ferritin 98.8 ng/mL (30.0-300.0) 08/29/20 18:34 Lactate Dehydrogenase 261 units/L (91-180) H 08/29/20 18:34 C-Reactive Protein 1.50 mg/dL (0.00-1.30) H 08/29/20 18:34 NT-Pro-B Natriuret Pep 483.2 pg/mL (0-900) 08/29/20 14:02 Procalcitonin 0.05 ng/mL (<0.15) 08/29/20 18:34 Arterial Blood Glucose 151 mg/dL (65-95) H 08/31/20 10:44 Arterial Blood Ionized Calcium 5.0 mg/dL (4.6-5.3) 08/31/20 10:44 Coronavirus (PCR) Negative (Negative) 08/29/20 Unknown Reza/IV: Voiding Method Urinal Active Medications - Current Medications Current Medications: Generic Name Dose Route Start Last Admin Trade Name Freq PRN Reason Stop Dose Admin Acetaminophen 650 mg 08/29/20 01:20 Acetaminophen 325 Mg Tab PO Q4H PRN Pain MILD(1-3)/Fever >100.5/ARRIAZA Albuterol 2.5 mg 08/30/20 12:45 09/02/20 12:20 Albuterol 2.5 Mg/3 Ml Nebu IH 2.5 mg Q4HRT CAROLE Administration Budesonide 0.5 mg 08/29/20 08:00 09/02/20 08:41 Budesonide 0.5 Mg/2 Ml Nebu IH 0.5 mg Q12HRT CAROLE Administration Bupropion HCl 150 mg 08/31/20 11:00 09/02/20 10:01 Bupropion Xl 150 Mg Tab PO 150 mg DAILY CAROLE Administration Clonazepam 1 mg 09/01/20 11:00 09/02/20 10:01 Clonazepam 0.5 Mg Tab PO 1 mg BID CAROLE Administration Clopidogrel Bisulfate 75 mg 09/01/20 11:00 09/02/20 10:01 Clopidogrel 75 Mg Tab PO 75 mg QDAY CAROLE Administration Enoxaparin Sodium 40 mg 09/01/20 22:00 09/01/20 21:44 Enoxaparin 40 Mg/0.4 Ml Inj SUB-Q 40 mg QDAY@2200 CAROLE Administration Labetalol HCl 10 mg 08/30/20 09:19 Labetalol 20 Mg/4 Ml Inj IV Q6H PRN SBP >170 or DBP >110 Lisinopril 40 mg 08/29/20 20:00 09/02/20 10:01 Lisinopril 40 Mg Tab PO 40 mg QDAY CAROLE Administration Lorazepam 1 mg 09/01/20 11:00 09/02/20 08:10 Lorazepam 2 Mg/Ml Vial IV 1 mg Q4H PRN Administration Anxiety Magnesium Hydroxide 30 ml 08/29/20 01:20 Magnesium Hydroxide (Mom) Oral Liqd Udc PO Q4H PRN Constipation Methylprednisolone Sodium Succinate 60 mg 08/31/20 12:00 09/02/20 13:00 Methylprednisolone Sod Succinate 125 Mg/2 Ml Inj IV 60 mg Q6H CAROLE Administration Nicotine 21 mg 08/31/20 16:00 09/02/20 10:00 Nicotine 21 Mg/24 Hr Patch TD 21 mg DAILY CAROLE Administration Ondansetron HCl 4 mg 08/29/20 01:20 Ondansetron 4 Mg/2 Ml Inj IV Q8H PRN Nausea And Vomiting Oxycodone/Acetaminophen 1 tab 08/31/20 14:08 09/02/20 05:38 Oxycodone /Acetaminophen 5-325mg Tab PO 1 tab Q6H PRN Administration Pain, Moderate (4-6) Sodium Chloride 10 ml 08/29/20 10:00 09/02/20 10:01 Sodium Chloride 0.9% 10 Ml Flush Syringe IV 10 ml BID CARLOE Administration Sodium Chloride 10 ml 08/29/20 01:20 Sodium Chloride 0.9% 10 Ml Flush Syringe IV PRN PRN LINE FLUSH
--- NOTE | 2020-09-02 16:00 | Event Note ---
Date: 09/02/20 I updated the patient's son Christian Mitchell . at [phone] of current events and patient transition from ICU to the floor. All questions were answered. He inquired about timeline for discharge for his father. I informed him that the patient should be discharged in 1 to 2 days pending no further acute events.
[2020-09-02] MEDS: ENOXAPARIN 40 MG/0.4 ML INJ SUB-Q SCH (21:10)
[2020-09-03] MEDS: ALBUTEROL 2.5 MG/3 ML NEBU IH SCH ×6 (01:32→20:57)
[2020-09-03] MEDS: methylPREDNISolone Sod Succinate 125 MG/2 ML INJ IV SCH ×3 (05:05→17:19)
[2020-09-03] MEDS: oxyCODONE /ACETAMINOPHEN 5-325MG TAB PO PRN ×3 (05:06→17:18)
[2020-09-03 06:13] LABS: Hematocrit 36.5 % (35.5-45.6); Hemoglobin 11.9 gm/dl (11.8-15.2); Mean Corpuscular HGB Conc 33 % (32-34); Mean Corpuscular Volume 85 fl (84-94); Platelet Count 445 K/mm3 (140-440); Red Blood Count 4.28 M/mm3 (3.65-5.03); Red Cell Distribution Width 19.3 % (13.2-15.2)
[2020-09-03 06:38] LABS: BUN/Creatinine Ratio 39; Blood Urea Nitrogen 31 mg/dL (9-20); Calcium 9.1 mg/dL (8.4-10.2); Hemolysis Index 37
[2020-09-03] MEDS: BUDESONIDE 0.5 MG/2 ML NEBU IH SCH ×2 (08:29→20:57)
--- NOTE | 2020-09-03 08:47 | Progress Note ---
Assessment and Plan Assessment and plan: This is a 55-year-old male with asthma, nicotine dependence and hypertension who was admitted with asthma exacerbation, acute hypoxic respiratory failure. Acute hypoxic respiratory failure Acute asthma exacerbation Elevated D-dimer Right inguinal hernia Thrombocytosis Leukocytosis (likely secondary to steroid use) -[facility], general surgery consulted, patient recommendations -S/p BiPAP therapy -Wean supplemental oxygenation as tolerated -Pulmonary hygiene -Continue with prednisone with taper -Continue Pulmicort and scheduled DuoNebs -Nicotine patch/Wellbutrin XL -S/p heparin drip, CTA chest canceled -Bilateral lower extremity Doppler ultrasounds negative for DVT -Cardiac diet -Resume home Plavix, lisinopril and titrate as needed -Blood pressure monitor per protocol -Outpatient follow-up for right inguinal hernia -Trend CBC, BMP DVT prophylaxis: SCDs to bilateral lower extremity while in bed, Lovenox subcu Disposition: Transfer to floor Critical care statement The high probability OF a clinically significant sudden or life-threatening deterioration of the cardiorespiratory system and endocrine system required my full and direct attention, intervention and postoperative management. The aggregate critical care time was 30 minutes. The time is in addition to time spent performing reported procedures but includes the followin: Data review and interpretation 2: Patient assessment and monitoring of vital signs 3: Documentation 4:: Medication orders and management Advance Directives: Yes (Full code) History Interval history: This is a 55-year-old male with asthma (requiring intubation x2 for acute exacerbations), nicotine dependence and hypertension who presented to the emergency department on 08/29 complaining of shortness of breath. Upon arrival to the emergency department patient was wheezing and having labored breathing and placed on BiPAP. Patient continued to have increased work of breathing despite nebulizing treatments in the emergency department. CXR did not show any acute findings and labs were unremarkable. Patient was admitted to the hospital service with asthma exacerbation and [facility] and surgery were consulted. 08/29. Patient seen and examined at bedside this morning. Patient is still wheezing. Remains on BiPAP. Increase steroids to 80 mg every 6. Pulmonology consulted. Started patient on albuterol every 4 scheduled. May need to transfer to [facility] if no improve in the next 3 to 4 hours. 08/30. Still remains on BiPAP. Remains on bronchodilators and Solu-Medrol 100 q. 6. Blood pressure elevated so has been started on IV blood pressure medications. Pulmonology is following. Patient may need intubation if not improved. Discussed with block hacker this a.m. He complains of right inguinal pain. Will consult surgery for evaluation. He has no signs of bowel obstruction 08/31: Patient was able to be taken off BiPAP and placed on high flow nasal cannula another time my examination he was on 3 L 60%. Bilateral lower extremity Dopplers are pending. [facility] decreased steroids to 60 every 6. RN attempted trial lying flat in the unit however patient was unable to lay flat without shortness of breath. Nicotine patch given increased to 21 mcg and Wellbutrin started to aid in smoking cessation. 09/01: Overnight the patient had severe anxiety and agitation and was given IV Ativan and has self reported confusion per RN overnight. Patient refused BiPAP therapy overnight and was rested on nasal cannula. This morning patient is high flow nasal cannula at 15 L 40%. [facility] has ordered BID Klonopin as patient takes a lot of xanax at home for anxiety. BLE Doppler negative for DVT and given improved pulmamory status [facility] has stopped heparin gtt put CTA on hold for now. We will restart his home Plavix. Possible transfer to floor tomorrow. Patient has hyperkalemia today and was given Kayexalate. 09/02: Potassium is within normal range, will transfer patient to floor today as he was dang; t be weaned to be weaned to 5 L nasal cannula this morning the time my examination. No acute events reported overnight. Self-reported anxiety and impending doom related to family member who is around patient's current age not surviving hospital stay. Attempted to ease anxiety with therapeutic communication. CTA cancelled. 09/03/2020; and is on 3 L of oxygen. Patient has wheezing all over the chest. Patient in distress and will keep him as inpatient. History Interval history: Patient was seen and evaluated this morning Patient was on 3 L of oxygen Hospitalist Physical - Physical exam Narrative exam: Not in cardiopulmonary distress. The patient appeared well nourished and normally developed. Vital signs as documented. Head exam is unremarkable. No scleral icterus . Neck is without jugular venous distension, thyromegaly, or carotid bruits. Lungs wheezing all over the chest Cardiac exam reveals regular rate and Rhythm. Abdominal exam reveals normal bowel sounds, nontender, no organomegaly. Extremities are nonedematous and both femoral and pedal pulses are normal. CARTOGRAPHY PROFESSOR: Alert and oriented 3. No focal weakness. - Constitutional Vitals: Temp Pulse Resp BP Pulse Ox 98.0 F 89 20 143/87 100 09/03/20 04:10 09/03/20 08:00 09/03/20 08:00 09/03/20 04:10 09/03/20 08:00 General appearance: Present: no acute distress, well-nourished Results - Labs CBC & Chem 7: 09/03/20 05:06 09/03/20 05:06 Labs: Laboratory Last Values WBC 8.8 K/mm3 (4.5-11.0) 09/03/20 05:06 RBC 4.28 M/mm3 (3.65-5.03) 09/03/20 05:06 Hgb 11.9 gm/dl (11.8-15.2) 09/03/20 05:06 Hct 36.5 % (35.5-45.6) 09/03/20 05:06 MCV 85 fl (84-94) 09/03/20 05:06 MCH 28 pg (28-32) 09/03/20 05:06 MCHC 33 % (32-34) 09/03/20 05:06 RDW 19.3 % (13.2-15.2) H 09/03/20 05:06 Plt Count 445 K/mm3 (140-440) H 09/03/20 05:06 Lymph % (Auto) 6.0 % (13.4-35.0) L 08/30/20 11:25 [place] % (Auto) 7.9 % (0.0-7.3) H 08/30/20 11:25 Eos % (Auto) 0.0 % (0.0-4.3) 08/30/20 11:25 Baso % (Auto) 0.4 % (0.0-1.8) 08/30/20 11:25 Lymph # (Auto) 0.6 K/mm3 (1.2-5.4) L 08/30/20 11:25 [place] # (Auto) 0.8 K/mm3 (0.0-0.8) 08/30/20 11:25 Eos # (Auto) 0.0 K/mm3 (0.0-0.4) 08/30/20 11:25 Baso # (Auto) 0.0 K/mm3 (0.0-0.1) 08/30/20 11:25 Add Manual Diff Complete 08/29/20 00:06 Total Counted 100 08/29/20 00:06 Seg Neutrophils % 85.7 % (40.0-70.0) H 08/30/20 11:25 Seg Neuts % (Manual) 85.0 % (40.0-70.0) H 08/29/20 00:06 Band Neutrophils % 1.0 % 08/29/20 00:06 Lymphocytes % (Manual) 12.0 % (13.4-35.0) L 08/29/20 00:06 Monocytes % (Manual) 2.0 % (0.0-7.3) 08/29/20 00:06 Nucleated RBC % Not Reportable 08/29/20 00:06 Seg Neutrophils # 8.8 K/mm3 (1.8-7.7) H 08/30/20 11:25 Seg Neutrophils # Man 8.2 K/mm3 (1.8-7.7) H 08/29/20 00:06 Band Neutrophils # 0.1 K/mm3 08/29/20 00:06 Lymphocytes # (Manual) 1.2 K/mm3 (1.2-5.4) 08/29/20 00:06 Abs React Lymphs (Man) 0.0 K/mm3 08/29/20 00:06 Monocytes # (Manual) 0.2 K/mm3 (0.0-0.8) 08/29/20 00:06 Eosinophils # (Manual) 0.0 K/mm3 (0.0-0.4) 08/29/20 00:06 Basophils # (Manual) 0.0 K/mm3 (0.0-0.1) 08/29/20 00:06 Metamyelocytes # 0.0 K/mm3 08/29/20 00:06 Myelocytes # 0.0 K/mm3 08/29/20 00:06 Promyelocytes # 0.0 K/mm3 08/29/20 00:06 Blast Cells # 0.0 K/mm3 08/29/20 00:06 WBC Morphology Not Reportable 08/29/20 00:06 Hypersegmented Neuts Not Reportable 08/29/20 00:06 Hyposegmented Neuts Not Reportable 08/29/20 00:06 Hypogranular Neuts Not Reportable 08/29/20 00:06 Smudge Cells Not Reportable 08/29/20 00:06 Toxic Granulation Not Reportable 08/29/20 00:06 Toxic Vacuolation Not Reportable 08/29/20 00:06 Dohle Bodies Not Reportable 08/29/20 00:06 Pelger-Huet Anomaly Not Reportable 08/29/20 00:06 Galo Rods Not Reportable 08/29/20 00:06 Platelet Estimate Consistent w auto 08/29/20 00:06 Clumped Platelets Not Reportable 08/29/20 00:06 Plt Clumps, EDTA Not Reportable 08/29/20 00:06 Large Platelets Not Reportable 08/29/20 00:06 Giant Platelets Not Reportable 08/29/20 00:06 Platelet Satelliting Not Reportable 08/29/20 00:06 Plt Morphology Comment Not Reportable 08/29/20 00:06 RBC Morphology Not Reportable 08/29/20 00:06 Dimorphic RBCs Not Reportable 08/29/20 00:06 Polychromasia Not Reportable 08/29/20 00:06 Hypochromasia Not Reportable 08/29/20 00:06 Poikilocytosis Not Reportable 08/29/20 00:06 Anisocytosis 1+ 08/29/20 00:06 Microcytosis Not Reportable 08/29/20 00:06 Macrocytosis Not Reportable 08/29/20 00:06 Spherocytes Not Reportable 08/29/20 00:06 Pappenheimer Bodies Not Reportable 08/29/20 00:06 Sickle Cells Not Reportable 08/29/20 00:06 Target Cells Not Reportable 08/29/20 00:06 Tear Drop Cells Not Reportable 08/29/20 00:06 Ovalocytes Not Reportable 08/29/20 00:06 Helmet Cells Not Reportable 08/29/20 00:06 [place] Bodies Not Reportable 08/29/20 00:06 [place] Rings Not Reportable 08/29/20 00:06 [place] Cells Not Reportable 08/29/20 00:06 Bite Cells Not Reportable 08/29/20 00:06 Crenated Cell Not Reportable 08/29/20 00:06 Elliptocytes Not Reportable 08/29/20 00:06 Acanthocytes (Spur) Not Reportable 08/29/20 00:06 Rouleaux Not Reportable 08/29/20 00:06 Hemoglobin C Crystals Not Reportable 08/29/20 00:06 Schistocytes Not Reportable 08/29/20 00:06 Malaria parasites Not Reportable 08/29/20 00:06 Lobo Bodies Not Reportable 08/29/20 00:06 Hem Pathologist Commnt No 08/29/20 00:06 PT 14.0 Sec. (12.2-14.9) 08/30/20 07:10 INR 1.09 (0.87-1.13) 08/30/20 07:10 APTT 34.5 Sec. (24.2-36.6) 08/29/20 18:34 D-Dimer 1038.61 ng/mlDDU (0-234) H 08/29/20 14:02 Heparin Anti-Xa Level 0.57 U.I./ml (0.3-0.7) 08/31/20 18:58 ABG pH 7.393 (7.320-7.450) 08/31/20 10:44 POC ABG pCO2 48.4 mmHg (32.0-48.0) H 08/31/20 10:44 POC ABG pO2 80.0 mmHg (83-108) L 08/31/20 10:44 POC ABG HCO3 28.8 08/31/20 10:44 ABG O2 Saturation 95.3 (0-100) 08/31/20 10:44 POC ABG Base Excess 3.2 08/31/20 10:44 ABG Hemoglobin 13.0 (12.0-17.5) 08/31/20 10:44 ABG Oxyhemoglobin 94.3 (94-98) 08/31/20 10:44 ABG Methemoglobin 0.3 (0.0-1.5) 08/31/20 10:44 ABG Sodium 137.2 mmol/L (136.0-145.0) 08/31/20 10:44 ABG Potassium 4.5 mmol/L (3.40-4.50) 08/31/20 10:44 ABG Chloride 97.0 mmol/L (98-107) L 08/31/20 10:44 ABG Glucose 151 mg/dL (65-95) H 08/31/20 10:44 Carboxyhemoglobin 0.8 (0.5-1.5) 08/31/20 10:44 FiO2 % 50.0 08/31/20 10:44 Sodium 141 mmol/L (137-145) 09/03/20 05:06 Potassium 5.3 mmol/L (3.6-5.0) H 09/03/20 05:06 Chloride 99.7 mmol/L (98-107) 09/03/20 05:06 Carbon Dioxide 35 mmol/L (22-30) H 09/03/20 05:06 Anion Gap 12 mmol/L 09/03/20 05:06 BUN 31 mg/dL (9-20) H 09/03/20 05:06 Creatinine 0.8 mg/dL (0.8-1.3) 09/03/20 05:06 Estimated GFR > 60 ml/min 09/03/20 05:06 BUN/Creatinine Ratio 39 % 09/03/20 05:06 Glucose 135 mg/dL (75-100) H 09/03/20 05:06 POC Glucose 138 mg/dL (70-105) H 08/30/20 17:24 Calcium 9.1 mg/dL (8.4-10.2) 09/03/20 05:06 Ferritin 98.8 ng/mL (30.0-300.0) 08/29/20 18:34 Lactate Dehydrogenase 261 units/L (91-180) H 08/29/20 18:34 C-Reactive Protein 1.50 mg/dL (0.00-1.30) H 08/29/20 18:34 NT-Pro-B Natriuret Pep 483.2 pg/mL (0-900) 08/29/20 14:02 Procalcitonin 0.05 ng/mL (<0.15) 08/29/20 18:34 Arterial Blood Glucose 151 mg/dL (65-95) H 08/31/20 10:44 Arterial Blood Ionized Calcium 5.0 mg/dL (4.6-5.3) 08/31/20 10:44 Coronavirus (PCR) Negative (Negative) 08/29/20 Unknown Reza/IV: Voiding Method Urinal Active Medications - Current Medications Current Medications: Generic Name Dose Route Start Last Admin Trade Name Freq PRN Reason Stop Dose Admin Acetaminophen 650 mg 08/29/20 01:20 Acetaminophen 325 Mg Tab PO Q4H PRN Pain MILD(1-3)/Fever >100.5/ARRIAZA Albuterol 2.5 mg 08/30/20 12:45 09/03/20 08:29 Albuterol 2.5 Mg/3 Ml Nebu IH 2.5 mg Q4HRT CAROLE Administration Budesonide 0.5 mg 08/29/20 08:00 09/03/20 08:29 Budesonide 0.5 Mg/2 Ml Nebu IH 0.5 mg Q12HRT CAROLE Administration Bupropion HCl 150 mg 08/31/20 11:00 09/02/20 10:01 Bupropion Xl 150 Mg Tab PO 150 mg DAILY CAROLE Administration Clonazepam 1 mg 09/01/20 11:00 09/02/20 21:10 Clonazepam 0.5 Mg Tab PO 1 mg BID CAROLE Administration Clopidogrel Bisulfate 75 mg 09/01/20 11:00 09/02/20 10:01 Clopidogrel 75 Mg Tab PO 75 mg QDAY CAROLE Administration Enoxaparin Sodium 40 mg 09/01/20 22:00 09/02/20 21:10 Enoxaparin 40 Mg/0.4 Ml Inj SUB-Q 40 mg QDAY@2200 CAROLE Administration Labetalol HCl 10 mg 08/30/20 09:19 Labetalol 20 Mg/4 Ml Inj IV Q6H PRN SBP >170 or DBP >110 Lisinopril 40 mg 08/29/20 20:00 09/02/20 10:01 Lisinopril 40 Mg Tab PO 40 mg QDAY CAROLE Administration Lorazepam 1 mg 09/01/20 11:00 09/02/20 23:11 Lorazepam 2 Mg/Ml Vial IV 1 mg Q4H PRN Administration Anxiety Magnesium Hydroxide 30 ml 08/29/20 01:20 Magnesium Hydroxide (Mom) Oral Liqd Udc PO Q4H PRN Constipation Methylprednisolone Sodium Succinate 60 mg 08/31/20 12:00 09/03/20 05:05 Methylprednisolone Sod Succinate 125 Mg/2 Ml Inj IV 60 mg Q6H CAROLE Administration Nicotine 21 mg 08/31/20 16:00 09/02/20 10:00 Nicotine 21 Mg/24 Hr Patch TD 21 mg DAILY CAROLE Administration Ondansetron HCl 4 mg 08/29/20 01:20 Ondansetron 4 Mg/2 Ml Inj IV Q8H PRN Nausea And Vomiting Oxycodone/Acetaminophen 1 tab 08/31/20 14:08 09/03/20 05:06 Oxycodone /Acetaminophen 5-325mg Tab PO 1 tab Q6H PRN Administration Pain, Moderate (4-6) Sodium Chloride 10 ml 08/29/20 10:00 09/02/20 21:10 Sodium Chloride 0.9% 10 Ml Flush Syringe IV 10 ml BID CAROLE Administration Sodium Chloride 10 ml 08/29/20 01:20 Sodium Chloride 0.9% 10 Ml Flush Syringe IV PRN PRN LINE FLUSH
[2020-09-03] MEDS: CLOPIDOGREL 75 MG TAB PO SCH (10:23)
[2020-09-03] MEDS: LISINOPRIL 40 MG TAB PO SCH (10:23)
[2020-09-03] MEDS: clonazePAM 0.5 MG TAB PO SCH ×2 (10:23→21:46)
[2020-09-03] MEDS: NICOTINE 21 MG/24 HR PATCH TD SCH (10:23)
[2020-09-03] MEDS: buPROPion XL 150 MG TAB PO SCH (10:24)
[2020-09-03] MEDS: LORazepam 2 MG/ML VIAL IV PRN ×2 (13:13→18:58)
--- NOTE | 2020-09-03 13:48 | Progress Note ---
Assessment and Plan 55 y/o male with acute exacerbation of COPD and acute respiratory 09/03/20: Convinced patient to try bipap right now and will wear bipap tonight. RT will adjust settings at bedside now to help with comfort. Will also give a one time dose of lasix to see if this helps with breathing as well. He has been positive since admit but not sure how accurate these numbers are. Will need to continue the high dose steroids so not able to wean today. Will continue to monitor. Will ask nursing to given some anxiolytic therapy prior to placing on bipap tonight. 09/02/20: Stable for transfer to floor today. Continue Klonopin and prn ativan therapy. Wean FiO2 for sats >88%. No CTA needed. Continue nicotine patch and wellbutrin XL. 09/01/20: Continue steroids at current dosing and frequency. Continue Pulmicort and scheduled duonebs. Will try BID klonopin as patient taxes a lot of xanax at home for anxiety. Dopplers' negative and pulm status is improving, will stop heparin and hold on CTA for now. Continue nicotine patch and Wellbutrin XL. Continue ICU care for at least another 24 hours to make sure patient does not get worse. 1. Change steroids to 60q6 2. continue pulmicort BID and scheduled duonebs 3. Limit volume, hold on diuretic therapy for now. 4. Follow up vascular labs to see if VTE is present. If so, no need for CTA and continue anticoagulation. If negative will attempt to lie flat here in unit prior to transport for CTA. 5. Increase patch to 21 and start Wellbutrin 150XL daily as patient requests h elp with stopping smoking. could move to step down but no beds so can stay in unit until respiratory status is more stable. Maybe ready for transfer out later today vs tomorrow morning. Subjective Date of service: 09/03/20 Interval history: No acute events. Stable transition up to the floor. Unfortunately, some labored breathing right now at bedside. RT present as well. Patient has refused to wear bipap as of right now. Brother calling and I spoke with him on the phone in the room. Remainder is negative. Objective Vital Signs - 12hr 09/03/20 09/03/20 09/03/20 01:33 04:00 04:10 Temperature 98.0 F Pulse Rate 99 H 100 H Pulse Rate [ 118 H 112 H Bilateral Throughout] Respiratory 24 Rate Respiratory 24 24 Rate [Bilateral Throughout] Blood Pressure 143/87 O2 Sat by Pulse 99 Oximetry 09/03/20 09/03/20 09/03/20 07:48 08:00 10:23 Temperature 98.4 F Pulse Rate 101 H 89 Pulse Rate [ 89 Bilateral Throughout] Respiratory 18 Rate Respiratory 20 Rate [Bilateral Throughout] Blood Pressure 140/93 140/93 O2 Sat by Pulse 95 100 Oximetry 09/03/20 11:51 Temperature 98.6 F Pulse Rate 107 H Pulse Rate [ Bilateral Throughout] Respiratory 18 Rate Respiratory Rate [Bilateral Throughout] Blood Pressure 128/88 O2 Sat by Pulse 98 Oximetry Constitutional: other (on bipap mild to moderate distress) ENT: oropharynx moist Neck: supple Effort: mildly labored Ascultation: Bilateral: diminished breath sounds, wheezes CBC and BMP: 09/03/20 05:06 09/03/20 05:06 ABG, PT/INR, D-dimer: ABG ABG pH 7.393 (7.320-7.450) 08/31/20 10:44 POC ABG pCO2 48.4 mmHg (32.0-48.0) H 08/31/20 10:44 POC ABG pO2 80.0 mmHg (83-108) L 08/31/20 10:44 POC ABG HCO3 28.8 08/31/20 10:44 ABG O2 Saturation 95.3 (0-100) 08/31/20 10:44 PT/INR, D-dimer PT 14.0 Sec. (12.2-14.9) 08/30/20 07:10 INR 1.09 (0.87-1.13) 08/30/20 07:10 D-Dimer 1038.61 ng/mlDDU (0-234) H 08/29/20 14:02 Abnormal lab findings: Abnormal Labs 08/29/20 08/29/20 08/29/20 00:06 00:06 14:02 WBC Hgb Hct MCV 83 L MCH RDW 20.4 H Plt Count 496 H Lymph % (Auto) [place] % (Auto) Lymph # (Auto) Seg Neutrophils % Seg Neuts % (Manual) 85.0 H Lymphocytes % (Manual) 12.0 L Seg Neutrophils # Seg Neutrophils # Man 8.2 H D-Dimer 1038.61 H Heparin Anti-Xa Level ABG pH POC ABG pCO2 POC ABG pO2 ABG Potassium ABG Chloride ABG Glucose Potassium Chloride Carbon Dioxide BUN Glucose 125 H POC Glucose Lactate Dehydrogenase C-Reactive Protein Arterial Blood Glucose 08/29/20 08/29/20 08/30/20 15:05 18:34 00:36 WBC Hgb Hct MCV MCH RDW Plt Count Lymph % (Auto) [place] % (Auto) Lymph # (Auto) Seg Neutrophils % Seg Neuts % (Manual) Lymphocytes % (Manual) Seg Neutrophils # Seg Neutrophils # Man D-Dimer Heparin Anti-Xa Level 1.38 H ABG pH 7.280 L POC ABG pCO2 57.9 H POC ABG pO2 112.1 H ABG Potassium 4.7 H ABG Chloride ABG Glucose 143 H Potassium Chloride Carbon Dioxide BUN Glucose POC Glucose Lactate Dehydrogenase 261 H C-Reactive Protein 1.50 H Arterial Blood Glucose 143 H 08/30/20 08/30/20 08/30/20 07:10 07:10 08:30 WBC Hgb 10.1 L D Hct 30.3 L D MCV MCH RDW 19.8 H Plt Count 560 H 84 L Lymph % (Auto) 7.1 L [place] % (Auto) Lymph # (Auto) 0.7 L Seg Neutrophils % 87.8 H Seg Neuts % (Manual) Lymphocytes % (Manual) Seg Neutrophils # 9.0 H Seg Neutrophils # Man D-Dimer Heparin Anti-Xa Level ABG pH POC ABG pCO2 POC ABG pO2 ABG Potassium ABG Chloride ABG Glucose Potassium Chloride Carbon Dioxide BUN 34 H Glucose 148 H POC Glucose Lactate Dehydrogenase C-Reactive Protein Arterial Blood Glucose 08/30/20 08/30/20 08/30/20 08:44 11:25 12:14 WBC Hgb Hct MCV MCH RDW 19.6 H Plt Count 575 H D Lymph % (Auto) 6.0 L [place] % (Auto) 7.9 H Lymph # (Auto) 0.6 L Seg Neutrophils % 85.7 H Seg Neuts % (Manual) Lymphocytes % (Manual) Seg Neutrophils # 8.8 H Seg Neutrophils # Man D-Dimer Heparin Anti-Xa Level ABG pH 7.309 L POC ABG pCO2 58.5 H POC ABG pO2 ABG Potassium ABG Chloride ABG Glucose 168 H Potassium Chloride Carbon Dioxide BUN Glucose POC Glucose 124 H Lactate Dehydrogenase C-Reactive Protein Arterial Blood Glucose 168 H 08/30/20 08/30/20 08/31/20 16:06 17:24 02:11 WBC Hgb Hct MCV MCH RDW Plt Count 540 H Lymph % (Auto) [place] % (Auto) Lymph # (Auto) Seg Neutrophils % Seg Neuts % (Manual) Lymphocytes % (Manual) Seg Neutrophils # Seg Neutrophils # Man D-Dimer Heparin Anti-Xa Level 0.99 H ABG pH POC ABG pCO2 POC ABG pO2 ABG Potassium ABG Chloride ABG Glucose Potassium Chloride Carbon Dioxide BUN Glucose POC Glucose 138 H Lactate Dehydrogenase C-Reactive Protein Arterial Blood Glucose 08/31/20 08/31/20 08/31/20 02:11 10:44 11:11 WBC Hgb Hct MCV MCH RDW Plt Count Lymph % (Auto) [place] % (Auto) Lymph # (Auto) Seg Neutrophils % Seg Neuts % (Manual) Lymphocytes % (Manual) Seg Neutrophils # Seg Neutrophils # Man D-Dimer Heparin Anti-Xa Level 0.80 H 0.78 H ABG pH POC ABG pCO2 48.4 H POC ABG pO2 80.0 L ABG Potassium ABG Chloride 97.0 L ABG Glucose 151 H Potassium Chloride Carbon Dioxide BUN Glucose POC Glucose Lactate Dehydrogenase C-Reactive Protein Arterial Blood Glucose 151 H 09/01/20 09/01/20 09/02/20 05:00 05:00 05:28 WBC 14.4 H Hgb Hct 35.2 L MCV MCH 27 L RDW 19.7 H Plt Count 508 H Lymph % (Auto) [place] % (Auto) Lymph # (Auto) Seg Neutrophils % Seg Neuts % (Manual) Lymphocytes % (Manual) Seg Neutrophils # Seg Neutrophils # Man D-Dimer Heparin Anti-Xa Level ABG pH POC ABG pCO2 POC ABG pO2 ABG Potassium ABG Chloride ABG Glucose Potassium 5.1 H Chloride 96.4 L Carbon Dioxide 32 H BUN 45 H Glucose 135 H POC Glucose Lactate Dehydrogenase C-Reactive Protein Arterial Blood Glucose 09/02/20 09/03/20 09/03/20 05:28 05:06 05:06 WBC Hgb Hct MCV MCH RDW 19.3 H Plt Count 445 H Lymph % (Auto) [place] % (Auto) Lymph # (Auto) Seg Neutrophils % Seg Neuts % (Manual) Lymphocytes % (Manual) Seg Neutrophils # Seg Neutrophils # Man D-Dimer Heparin Anti-Xa Level ABG pH POC ABG pCO2 POC ABG pO2 ABG Potassium ABG Chloride ABG Glucose Potassium 5.3 H Chloride Carbon Dioxide 37 H 35 H BUN 35 H 31 H Glucose 149 H 135 H POC Glucose Lactate Dehydrogenase C-Reactive Protein Arterial Blood Glucose
[2020-09-03] MEDS: ENOXAPARIN 40 MG/0.4 ML INJ SUB-Q SCH (21:46)
[2020-09-04] MEDS: methylPREDNISolone Sod Succinate 125 MG/2 ML INJ IV SCH ×5 (00:42→23:58)
[2020-09-04] MEDS: ALBUTEROL 2.5 MG/3 ML NEBU IH SCH ×6 (01:10→21:14)
[2020-09-04] MEDS: LORazepam 2 MG/ML VIAL IV PRN ×3 (03:26→23:58)
[2020-09-04] MEDS: oxyCODONE /ACETAMINOPHEN 5-325MG TAB PO PRN ×3 (05:51→19:26)
[2020-09-04 05:52] LABS: Hematocrit 35.4 % (35.5-45.6); Hemoglobin 11.9 gm/dl (11.8-15.2)
[2020-09-04] MEDS: NICOTINE 21 MG/24 HR PATCH TD SCH ×2 (08:01→09:02)
[2020-09-04] MEDS: BUDESONIDE 0.5 MG/2 ML NEBU IH SCH ×2 (08:05→21:14)
[2020-09-04] MEDS: buPROPion XL 150 MG TAB PO SCH (09:02)
[2020-09-04] MEDS: CLOPIDOGREL 75 MG TAB PO SCH (09:02)
[2020-09-04] MEDS: clonazePAM 0.5 MG TAB PO SCH ×2 (09:02→21:21)
[2020-09-04] MEDS: LISINOPRIL 40 MG TAB PO SCH (09:02)
--- NOTE | 2020-09-04 10:20 | Progress Note ---
Assessment and Plan 55 y/o male with acute exacerbation of COPD and acute respiratory 09/04/20: Attempting to convince patient to not leave AMA. Continue current dose of steroid with prn PPV use. Guarded prognosis. 09/03/20: Convinced patient to try bipap right now and will wear bipap tonight. RT will adjust settings at bedside now to help with comfort. Will also give a one time dose of lasix to see if this helps with breathing as well. He has been positive since admit but not sure how accurate these numbers are. Will need to continue the high dose steroids so not able to wean today. Will continue to monitor. Will ask nursing to given some anxiolytic therapy prior to placing on bipap tonight. 09/02/20: Stable for transfer to floor today. Continue Klonopin and prn ativan therapy. Wean FiO2 for sats >88%. No CTA needed. Continue nicotine patch and wellbutrin XL. 09/01/20: Continue steroids at current dosing and frequency. Continue Pulmicort and scheduled duonebs. Will try BID klonopin as patient taxes a lot of xanax at home for anxiety. Dopplers' negative and pulm status is improving, will stop heparin and hold on CTA for now. Continue nicotine patch and Wellbutrin XL. Continue ICU care for at least another 24 hours to make sure patient does not get worse. 1. Change steroids to 60q6 2. continue pulmicort BID and scheduled duonebs 3. Limit volume, hold on diuretic therapy for now. 4. Follow up vascular labs to see if VTE is present. If so, no need for CTA and continue anticoagulation. If negative will attempt to lie flat here in unit prior to transport for CTA. 5. Increase patch to 21 and start Wellbutrin 150XL daily as patient requests help with stopping smoking. could move to step down but no beds so can stay in unit until respiratory status is more stable. Maybe ready for transfer out later today vs tomorrow morning. Subjective Date of service: 09/04/20 Interval history: No acute events. Better after wearing PPV yesterday and last night. Work of breathing is better. Objective Vital Signs - 12hr 09/03/20 09/03/20 09/04/20 23:18 23:40 00:00 Temperature 97.9 F Pulse Rate 106 H 115 H 110 H Pulse Rate [ Bilateral Throughout] Respiratory 34 H 28 H Rate Respiratory Rate [Bilateral Throughout] Blood Pressure 140/88 O2 Sat by Pulse 94 98 Oximetry 09/04/20 09/04/20 09/04/20 01:11 01:12 02:00 Temperature Pulse Rate Pulse Rate [ 102 H Bilateral Throughout] Respiratory 27 H Rate Respiratory 20 Rate [Bilateral Throughout] Blood Pressure O2 Sat by Pulse 95 93 Oximetry 09/04/20 09/04/20 09/04/20 04:00 04:35 08:05 Temperature 97.9 F Pulse Rate 102 H 105 H Pulse Rate [ 99 H 107 H Bilateral Throughout] Respiratory 24 Rate Respiratory 18 18 Rate [Bilateral Throughout] Blood Pressure 139/90 O2 Sat by Pulse 95 98 Oximetry 09/04/20 09/04/20 08:40 09:02 Temperature Pulse Rate 120 H Pulse Rate [ Bilateral Throughout] Respiratory Rate Respiratory Rate [Bilateral Throughout] Blood Pressure 149/87 O2 Sat by Pulse 95 Oximetry Constitutional: other (on bipap mild to moderate distress) ENT: oropharynx moist Neck: supple Effort: mildly labored Ascultation: Bilateral: diminished breath sounds, wheezes CBC and BMP: 09/04/20 04:56 09/03/20 05:06 ABG, PT/INR, D-dimer: ABG ABG pH 7.393 (7.320-7.450) 08/31/20 10:44 POC ABG pCO2 48.4 mmHg (32.0-48.0) H 08/31/20 10:44 POC ABG pO2 80.0 mmHg (83-108) L 08/31/20 10:44 POC ABG HCO3 28.8 08/31/20 10:44 ABG O2 Saturation 95.3 (0-100) 08/31/20 10:44 PT/INR, D-dimer PT 14.0 Sec. (12.2-14.9) 08/30/20 07:10 INR 1.09 (0.87-1.13) 08/30/20 07:10 D-Dimer 1038.61 ng/mlDDU (0-234) H 08/29/20 14:02 Abnormal lab findings: Abnormal Labs 08/29/20 08/29/20 08/29/20 00:06 00:06 14:02 WBC Hgb Hct MCV 83 L MCH RDW 20.4 H Plt Count 496 H Lymph % (Auto) [place] % (Auto) Lymph # (Auto) Seg Neutrophils % Seg Neuts % (Manual) 85.0 H Lymphocytes % (Manual) 12.0 L Seg Neutrophils # Seg Neutrophils # Man 8.2 H D-Dimer 1038.61 H Heparin Anti-Xa Level ABG pH POC ABG pCO2 POC ABG pO2 ABG Potassium ABG Chloride ABG Glucose Potassium Chloride Carbon Dioxide BUN Glucose 125 H POC Glucose Lactate Dehydrogenase C-Reactive Protein Arterial Blood Glucose 08/29/20 08/29/20 08/30/20 15:05 18:34 00:36 WBC Hgb Hct MCV MCH RDW Plt Count Lymph % (Auto) [place] % (Auto) Lymph # (Auto) Seg Neutrophils % Seg Neuts % (Manual) Lymphocytes % (Manual) Seg Neutrophils # Seg Neutrophils # Man D-Dimer Heparin Anti-Xa Level 1.38 H ABG pH 7.280 L POC ABG pCO2 57.9 H POC ABG pO2 112.1 H ABG Potassium 4.7 H ABG Chloride ABG Glucose 143 H Potassium Chloride Carbon Dioxide BUN Glucose POC Glucose Lactate Dehydrogenase 261 H C-Reactive Protein 1.50 H Arterial Blood Glucose 143 H 08/30/20 08/30/20 08/30/20 07:10 07:10 08:30 WBC Hgb 10.1 L D Hct 30.3 L D MCV MCH RDW 19.8 H Plt Count 560 H 84 L Lymph % (Auto) 7.1 L [place] % (Auto) Lymph # (Auto) 0.7 L Seg Neutrophils % 87.8 H Seg Neuts % (Manual) Lymphocytes % (Manual) Seg Neutrophils # 9.0 H Seg Neutrophils # Man D-Dimer Heparin Anti-Xa Level ABG pH POC ABG pCO2 POC ABG pO2 ABG Potassium ABG Chloride ABG Glucose Potassium Chloride Carbon Dioxide BUN 34 H Glucose 148 H POC Glucose Lactate Dehydrogenase C-Reactive Protein Arterial Blood Glucose 08/30/20 08/30/20 08/30/20 08:44 11:25 12:14 WBC Hgb Hct MCV MCH RDW 19.6 H Plt Count 575 H D Lymph % (Auto) 6.0 L [place] % (Auto) 7.9 H Lymph # (Auto) 0.6 L Seg Neutrophils % 85.7 H Seg Neuts % (Manual) Lymphocytes % (Manual) Seg Neutrophils # 8.8 H Seg Neutrophils # Man D-Dimer Heparin Anti-Xa Level ABG pH 7.309 L POC ABG pCO2 58.5 H POC ABG pO2 ABG Potassium ABG Chloride ABG Glucose 168 H Potassium Chloride Carbon Dioxide BUN Glucose POC Glucose 124 H Lactate Dehydrogenase C-Reactive Protein Arterial Blood Glucose 168 H 08/30/20 08/30/20 08/31/20 16:06 17:24 02:11 WBC Hgb Hct MCV MCH RDW Plt Count 540 H Lymph % (Auto) [place] % (Auto) Lymph # (Auto) Seg Neutrophils % Seg Neuts % (Manual) Lymphocytes % (Manual) Seg Neutrophils # Seg Neutrophils # Man D-Dimer Heparin Anti-Xa Level 0.99 H ABG pH POC ABG pCO2 POC ABG pO2 ABG Potassium ABG Chloride ABG Glucose Potassium Chloride Carbon Dioxide BUN Glucose POC Glucose 138 H Lactate Dehydrogenase C-Reactive Protein Arterial Blood Glucose 08/31/20 08/31/20 08/31/20 02:11 10:44 11:11 WBC Hgb Hct MCV MCH RDW Plt Count Lymph % (Auto) [place] % (Auto) Lymph # (Auto) Seg Neutrophils % Seg Neuts % (Manual) Lymphocytes % (Manual) Seg Neutrophils # Seg Neutrophils # Man D-Dimer Heparin Anti-Xa Level 0.80 H 0.78 H ABG pH POC ABG pCO2 48.4 H POC ABG pO2 80.0 L ABG Potassium ABG Chloride 97.0 L ABG Glucose 151 H Potassium Chloride Carbon Dioxide BUN Glucose POC Glucose Lactate Dehydrogenase C-Reactive Protein Arterial Blood Glucose 151 H 09/01/20 09/01/20 09/02/20 05:00 05:00 05:28 WBC 14.4 H Hgb Hct 35.2 L MCV MCH 27 L RDW 19.7 H Plt Count 508 H Lymph % (Auto) [place] % (Auto) Lymph # (Auto) Seg Neutrophils % Seg Neuts % (Manual) Lymphocytes % (Manual) Seg Neutrophils # Seg Neutrophils # Man D-Dimer Heparin Anti-Xa Level ABG pH POC ABG pCO2 POC ABG pO2 ABG Potassium ABG Chloride ABG Glucose Potassium 5.1 H Chloride 96.4 L Carbon Dioxide 32 H BUN 45 H Glucose 135 H POC Glucose Lactate Dehydrogenase C-Reactive Protein Arterial Blood Glucose 09/02/20 09/03/20 09/03/20 05:28 05:06 05:06 WBC Hgb Hct MCV MCH RDW 19.3 H Plt Count 445 H Lymph % (Auto) [place] % (Auto) Lymph # (Auto) Seg Neutrophils % Seg Neuts % (Manual) Lymphocytes % (Manual) Seg Neutrophils # Seg Neutrophils # Man D-Dimer Heparin Anti-Xa Level ABG pH POC ABG pCO2 POC ABG pO2 ABG Potassium ABG Chloride ABG Glucose Potassium 5.3 H Chloride Carbon Dioxide 37 H 35 H BUN 35 H 31 H Glucose 149 H 135 H POC Glucose Lactate Dehydrogenase C-Reactive Protein Arterial Blood Glucose 09/04/20 04:56 WBC Hgb Hct 35.4 L MCV MCH RDW Plt Count Lymph % (Auto) [place] % (Auto) Lymph # (Auto) Seg Neutrophils % Seg Neuts % (Manual) Lymphocytes % (Manual) Seg Neutrophils # Seg Neutrophils # Man D-Dimer Heparin Anti-Xa Level ABG pH POC ABG pCO2 POC ABG pO2 ABG Potassium ABG Chloride ABG Glucose Potassium Chloride Carbon Dioxide BUN Glucose POC Glucose Lactate Dehydrogenase C-Reactive Protein Arterial Blood Glucose
--- NOTE | 2020-09-04 10:48 | Progress Note ---
Assessment and Plan Assessment and plan: This is a 55-year-old male with asthma, nicotine dependence and hypertension who was admitted with asthma exacerbation, acute hypoxic respiratory failure. Acute hypoxic respiratory failure Acute asthma exacerbation Elevated D-dimer Right inguinal hernia Thrombocytosis Leukocytosis (likely secondary to steroid use) -[facility], general surgery consulted, patient recommendations -S/p BiPAP therapy -Wean supplemental oxygenation as tolerated -Pulmonary hygiene -Continue with prednisone with taper -Continue Pulmicort and scheduled DuoNebs -Nicotine patch/Wellbutrin XL -S/p heparin drip, CTA chest canceled -Bilateral lower extremity Doppler ultrasounds negative for DVT -Cardiac diet -Resume home Plavix, lisinopril and titrate as needed -Blood pressure monitor per protocol -Outpatient follow-up for right inguinal hernia -Trend CBC, BMP DVT prophylaxis: SCDs to bilateral lower extremity while in bed, Lovenox subcu Disposition: Transfer to floor Critical care statement The high probability OF a clinically significant sudden or life-threatening deterioration of the cardiorespiratory system and endocrine system required my full and direct attention, intervention and postoperative management. The aggregate critical care time was 30 minutes. The time is in addition to time spent performing reported procedures but includes the followin: Data review and interpretation 2: Patient assessment and monitoring of vital signs 3: Documentation 4:: Medication orders and management Advance Directives: Yes (Full code) History Interval history: This is a 55-year-old male with asthma (requiring intubation x2 for acute exacerbations), nicotine dependence and hypertension who presented to the emergency department on 08/29 complaining of shortness of breath. Upon arrival to the emergency department patient was wheezing and having labored breathing and placed on BiPAP. Patient continued to have increased work of breathing despite nebulizing treatments in the emergency department. CXR did not show any acute findings and labs were unremarkable. Patient was admitted to the hospital service with asthma exacerbation and [facility] and surgery were consulted. 08/29. Patient seen and examined at bedside this morning. Patient is still wheezing. Remains on BiPAP. Increase steroids to 80 mg every 6. Pulmonology consulted. Started patient on albuterol every 4 scheduled. May need to transfer to [facility] if no improve in the next 3 to 4 hours. 08/30. Still remains on BiPAP. Remains on bronchodilators and Solu-Medrol 100 q. 6. Blood pressure elevated so has been started on IV blood pressure medications. Pulmonology is following. Patient may need intubation if not improved. Discussed with windshield wiper repairer this a.m. He complains of right inguinal pain. Will consult surgery for evaluation. He has no signs of bowel obstruction 08/31: Patient was able to be taken off BiPAP and placed on high flow nasal cannula another time my examination he was on 3 L 60%. Bilateral lower extremity Dopplers are pending. [facility] decreased steroids to 60 every 6. RN attempted trial lying flat in the unit however patient was unable to lay flat without shortness of breath. Nicotine patch given increased to 21 mcg and Wellbutrin started to aid in smoking cessation. 09/01: Overnight the patient had severe anxiety and agitation and was given IV Ativan and has self reported confusion per RN overnight. Patient refused BiPAP therapy overnight and was rested on nasal cannula. This morning patient is high flow nasal cannula at 15 L 40%. [facility] has ordered BID Klonopin as patient takes a lot of xanax at home for anxiety. BLE Doppler negative for DVT and given improved pulmamory status [facility] has stopped heparin gtt put CTA on hold for now. We will restart his home Plavix. Possible transfer to floor tomorrow. Patient has hyperkalemia today and was given Kayexalate. 09/02: Potassium is within normal range, will transfer patient to floor today as he was dang; t be weaned to be weaned to 5 L nasal cannula this morning the time my examination. No acute events reported overnight. Self-reported anxiety and impending doom related to family member who is around patient's current age not surviving hospital stay. Attempted to ease anxiety with therapeutic communication. CTA cancelled. 09/03/2020; and is on 3 L of oxygen. Patient has wheezing all over the chest. Patient in distress and will keep him as inpatient. 09/04/2020; patient was on 2 L of oxygen, patient is in respiratory failure and using abdominal muscles for breathing. Patient has poor airflow. I have explained the patient about his condition and asked him to stay in the hospital patient declined to stay in the hospital. Patient said he is going to sign AMA. History Interval history: Patient was seen and evaluated this morning Patient was on 2 L of oxygen Hospitalist Physical - Physical exam Narrative exam: Not in cardiopulmonary distress. The patient appeared well nourished and normally developed. Vital signs as documented. Head exam is unremarkable. No scleral icterus . Neck is without jugular venous distension, thyromegaly, or carotid bruits. Lungs wheezing all over the chest, uses abdominal muscles for breathing. Cardiac exam reveals regular rate and Rhythm. Abdominal exam reveals normal bowel sounds, nontender, no organomegaly. Extremities are nonedematous and both femoral and pedal pulses are normal. 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 No focal weakness. - Constitutional Vitals: Temp Pulse Resp BP Pulse Ox 97.9 F 120 H 18 149/87 95 09/04/20 04:35 09/04/20 09:02 09/04/20 08:05 09/04/20 09:02 09/04/20 08:40 General appearance: Present: no acute distress, well-nourished Results - Labs CBC & Chem 7: 09/04/20 04:56 09/03/20 05:06 Labs: Laboratory Last Values WBC 8.8 K/mm3 (4.5-11.0) 09/03/20 05:06 RBC 4.28 M/mm3 (3.65-5.03) 09/03/20 05:06 Hgb 11.9 gm/dl (11.8-15.2) 09/04/20 04:56 Hct 35.4 % (35.5-45.6) L 09/04/20 04:56 MCV 85 fl (84-94) 09/03/20 05:06 MCH 28 pg (28-32) 09/03/20 05:06 MCHC 33 % (32-34) 09/03/20 05:06 RDW 19.3 % (13.2-15.2) H 09/03/20 05:06 Plt Count 364 K/mm3 (140-440) 09/04/20 04:56 Lymph % (Auto) 6.0 % (13.4-35.0) L 08/30/20 11:25 [place] % (Auto) 7.9 % (0.0-7.3) H 08/30/20 11:25 Eos % (Auto) 0.0 % (0.0-4.3) 08/30/20 11:25 Baso % (Auto) 0.4 % (0.0-1.8) 08/30/20 11:25 Lymph # (Auto) 0.6 K/mm3 (1.2-5.4) L 08/30/20 11:25 [place] # (Auto) 0.8 K/mm3 (0.0-0.8) 08/30/20 11:25 Eos # (Auto) 0.0 K/mm3 (0.0-0.4) 08/30/20 11:25 Baso # (Auto) 0.0 K/mm3 (0.0-0.1) 08/30/20 11:25 Add Manual Diff Complete 08/29/20 00:06 Total Counted 100 08/29/20 00:06 Seg Neutrophils % 85.7 % (40.0-70.0) H 08/30/20 11:25 Seg Neuts % (Manual) 85.0 % (40.0-70.0) H 08/29/20 00:06 Band Neutrophils % 1.0 % 08/29/20 00:06 Lymphocytes % (Manual) 12.0 % (13.4-35.0) L 08/29/20 00:06 Monocytes % (Manual) 2.0 % (0.0-7.3) 08/29/20 00:06 Nucleated RBC % Not Reportable 08/29/20 00:06 Seg Neutrophils # 8.8 K/mm3 (1.8-7.7) H 08/30/20 11:25 Seg Neutrophils # Man 8.2 K/mm3 (1.8-7.7) H 08/29/20 00:06 Band Neutrophils # 0.1 K/mm3 08/29/20 00:06 Lymphocytes # (Manual) 1.2 K/mm3 (1.2-5.4) 08/29/20 00:06 Abs React Lymphs (Man) 0.0 K/mm3 08/29/20 00:06 Monocytes # (Manual) 0.2 K/mm3 (0.0-0.8) 08/29/20 00:06 Eosinophils # (Manual) 0.0 K/mm3 (0.0-0.4) 08/29/20 00:06 Basophils # (Manual) 0.0 K/mm3 (0.0-0.1) 08/29/20 00:06 Metamyelocytes # 0.0 K/mm3 08/29/20 00:06 Myelocytes # 0.0 K/mm3 08/29/20 00:06 Promyelocytes # 0.0 K/mm3 08/29/20 00:06 Blast Cells # 0.0 K/mm3 08/29/20 00:06 WBC Morphology Not Reportable 08/29/20 00:06 Hypersegmented Neuts Not Reportable 08/29/20 00:06 Hyposegmented Neuts Not Reportable 08/29/20 00:06 Hypogranular Neuts Not Reportable 08/29/20 00:06 Smudge Cells Not Reportable 08/29/20 00:06 Toxic Granulation Not Reportable 08/29/20 00:06 Toxic Vacuolation Not Reportable 08/29/20 00:06 Dohle Bodies Not Reportable 08/29/20 00:06 Pelger-Huet Anomaly Not Reportable 08/29/20 00:06 Galo Rods Not Reportable 08/29/20 00:06 Platelet Estimate Consistent w auto 08/29/20 00:06 Clumped Platelets Not Reportable 08/29/20 00:06 Plt Clumps, EDTA Not Reportable 08/29/20 00:06 Large Platelets Not Reportable 08/29/20 00:06 Giant Platelets Not Reportable 08/29/20 00:06 Platelet Satelliting Not Reportable 08/29/20 00:06 Plt Morphology Comment Not Reportable 08/29/20 00:06 RBC Morphology Not Reportable 08/29/20 00:06 Dimorphic RBCs Not Reportable 08/29/20 00:06 Polychromasia Not Reportable 08/29/20 00:06 Hypochromasia Not Reportable 08/29/20 00:06 Poikilocytosis Not Reportable 08/29/20 00:06 Anisocytosis 1+ 08/29/20 00:06 Microcytosis Not Reportable 08/29/20 00:06 Macrocytosis Not Reportable 08/29/20 00:06 Spherocytes Not Reportable 08/29/20 00:06 Pappenheimer Bodies Not Reportable 08/29/20 00:06 Sickle Cells Not Reportable 08/29/20 00:06 Target Cells Not Reportable 08/29/20 00:06 Tear Drop Cells Not Reportable 08/29/20 00:06 Ovalocytes Not Reportable 08/29/20 00:06 Helmet Cells Not Reportable 08/29/20 00:06 [place] Bodies Not Reportable 08/29/20 00:06 [place] Rings Not Reportable 08/29/20 00:06 Nichole Cells Not Reportable 08/29/20 00:06 Bite Cells Not Reportable 08/29/20 00:06 Crenated Cell Not Reportable 08/29/20 00:06 Elliptocytes Not Reportable 08/29/20 00:06 Acanthocytes (Spur) Not Reportable 08/29/20 00:06 Rouleaux Not Reportable 08/29/20 00:06 Hemoglobin C Crystals Not Reportable 08/29/20 00:06 Schistocytes Not Reportable 08/29/20 00:06 Malaria parasites Not Reportable 08/29/20 00:06 Lobo Bodies Not Reportable 08/29/20 00:06 Hem Pathologist Commnt No 08/29/20 00:06 PT 14.0 Sec. (12.2-14.9) 08/30/20 07:10 INR 1.09 (0.87-1.13) 08/30/20 07:10 APTT 34.5 Sec. (24.2-36.6) 08/29/20 18:34 D-Dimer 1038.61 ng/mlDDU (0-234) H 08/29/20 14:02 Heparin Anti-Xa Level 0.57 U.I./ml (0.3-0.7) 08/31/20 18:58 ABG pH 7.393 (7.320-7.450) 08/31/20 10:44 POC ABG pCO2 48.4 mmHg (32.0-48.0) H 08/31/20 10:44 POC ABG pO2 80.0 mmHg (83-108) L 08/31/20 10:44 POC ABG HCO3 28.8 08/31/20 10:44 ABG O2 Saturation 95.3 (0-100) 08/31/20 10:44 POC ABG Base Excess 3.2 08/31/20 10:44 ABG Hemoglobin 13.0 (12.0-17.5) 08/31/20 10:44 ABG Oxyhemoglobin 94.3 (94-98) 08/31/20 10:44 ABG Methemoglobin 0.3 (0.0-1.5) 08/31/20 10:44 ABG Sodium 137.2 mmol/L (136.0-145.0) 08/31/20 10:44 ABG Potassium 4.5 mmol/L (3.40-4.50) 08/31/20 10:44 ABG Chloride 97.0 mmol/L (98-107) L 08/31/20 10:44 ABG Glucose 151 mg/dL (65-95) H 08/31/20 10:44 Carboxyhemoglobin 0.8 (0.5-1.5) 08/31/20 10:44 FiO2 % 50.0 08/31/20 10:44 Sodium 141 mmol/L (137-145) 09/03/20 05:06 Potassium 5.3 mmol/L (3.6-5.0) H 09/03/20 05:06 Chloride 99.7 mmol/L (98-107) 09/03/20 05:06 Carbon Dioxide 35 mmol/L (22-30) H 09/03/20 05:06 Anion Gap 12 mmol/L 09/03/20 05:06 BUN 31 mg/dL (9-20) H 09/03/20 05:06 Creatinine 0.8 mg/dL (0.8-1.3) 09/03/20 05:06 Estimated GFR > 60 ml/min 09/03/20 05:06 BUN/Creatinine Ratio 39 % 09/03/20 05:06 Glucose 135 mg/dL (75-100) H 09/03/20 05:06 POC Glucose 138 mg/dL (70-105) H 08/30/20 17:24 Calcium 9.1 mg/dL (8.4-10.2) 09/03/20 05:06 Ferritin 98.8 ng/mL (30.0-300.0) 08/29/20 18:34 Lactate Dehydrogenase 261 units/L (91-180) H 08/29/20 18:34 C-Reactive Protein 1.50 mg/dL (0.00-1.30) H 08/29/20 18:34 NT-Pro-B Natriuret Pep 483.2 pg/mL (0-900) 08/29/20 14:02 Procalcitonin 0.05 ng/mL (<0.15) 08/29/20 18:34 Arterial Blood Glucose 151 mg/dL (65-95) H 08/31/20 10:44 Arterial Blood Ionized Calcium 5.0 mg/dL (4.6-5.3) 08/31/20 10:44 Coronavirus (PCR) Negative (Negative) 08/29/20 Unknown Reza/IV: Voiding Method Urinal Active Medications - Current Medications Current Medications: Generic Name Dose Route Start Last Admin Trade Name Freq PRN Reason Stop Dose Admin Acetaminophen 650 mg 08/29/20 01:20 Acetaminophen 325 Mg Tab PO Q4H PRN Pain MILD(1-3)/Fever >100.5/ARRIAZA Albuterol 2.5 mg 08/30/20 12:45 09/04/20 08:05 Albuterol 2.5 Mg/3 Ml Nebu IH 2.5 mg Q4HRT CAROLE Administration Budesonide 0.5 mg 08/29/20 08:00 09/04/20 08:05 Budesonide 0.5 Mg/2 Ml Nebu IH 0.5 mg Q12HRT CAROLE Administration Bupropion HCl 150 mg 08/31/20 11:00 09/04/20 09:02 Bupropion Xl 150 Mg Tab PO 150 mg DAILY CAROLE Administration Clonazepam 1 mg 09/01/20 11:00 09/04/20 09:02 Clonazepam 0.5 Mg Tab PO 1 mg BID CAROLE Administration Clopidogrel Bisulfate 75 mg 09/01/20 11:00 09/04/20 09:02 Clopidogrel 75 Mg Tab PO 75 mg QDAY CAROLE Administration Enoxaparin Sodium 40 mg 09/01/20 22:00 09/03/20 21:46 Enoxaparin 40 Mg/0.4 Ml Inj SUB-Q 40 mg QDAY@2200 CAROLE Administration Labetalol HCl 10 mg 08/30/20 09:19 Labetalol 20 Mg/4 Ml Inj IV Q6H PRN SBP >170 or DBP >110 Lisinopril 40 mg 08/29/20 20:00 09/04/20 09:02 Lisinopril 40 Mg Tab PO 40 mg QDAY CAROLE Administration Lorazepam 1 mg 09/01/20 11:00 09/04/20 03:26 Lorazepam 2 Mg/Ml Vial IV 1 mg Q4H PRN Administration Anxiety Magnesium Hydroxide 30 ml 08/29/20 01:20 Magnesium Hydroxide (Mom) Oral Liqd Udc PO Q4H PRN Constipation Methylprednisolone Sodium Succinate 60 mg 08/31/20 12:00 09/04/20 05:51 Methylprednisolone Sod Succinate 125 Mg/2 Ml Inj IV 60 mg Q6H CAROLE Administration Nicotine 21 mg 08/31/20 16:00 09/04/20 09:02 Nicotine 21 Mg/24 Hr Patch TD 21 mg DAILY CAROLE Administration Ondansetron HCl 4 mg 08/29/20 01:20 Ondansetron 4 Mg/2 Ml Inj IV Q8H PRN Nausea And Vomiting Oxycodone/Acetaminophen 1 tab 08/31/20 14:08 09/04/20 05:51 Oxycodone /Acetaminophen 5-325mg Tab PO 1 tab Q6H PRN Administration Pain, Moderate (4-6) Sodium Chloride 10 ml 08/29/20 10:00 09/04/20 09:05 Sodium Chloride 0.9% 10 Ml Flush Syringe IV 10 ml BID CAROLE Administration Sodium Chloride 10 ml 08/29/20 01:20 Sodium Chloride 0.9% 10 Ml Flush Syringe IV PRN PRN LINE FLUSH Nutrition/Malnutrition Assess - Dietary Evaluation Nutrition/Malnutrition Findings: Nutrition Notes Start: 09/04/20 09:58 Freq: Status: Active Protocol: Document 09/04/20 09:58 AT (Rec: 09/04/20 10:00 AT [id number]) Co-Sign 09/04/20 09:58 MK Nutrition Notes Need for Assessment generated from: LOS Current Diagnosis COPD,Hypertension,Respiratory Failure Other Pertinent Diagnosis Asthma, SOB Current Diet Cardiac Diet Labs/Tests 09/03 K 5.3 BUN 31 BG 135 Pertinent Medications Pulmicort Solu-Medrol
[2020-09-04] MEDS: IPRATROPIUM/ALBUTEROL SULFATE 3 ML AMPUL.NEB IH SCH (21:13)
[2020-09-04] MEDS: ENOXAPARIN 40 MG/0.4 ML INJ SUB-Q SCH (21:20)
[2020-09-05] MEDS: ALBUTEROL 2.5 MG/3 ML NEBU IH SCH ×5 (01:57→20:24)
[2020-09-05] MEDS: oxyCODONE /ACETAMINOPHEN 5-325MG TAB PO PRN ×4 (05:08→23:58)
[2020-09-05] MEDS: methylPREDNISolone Sod Succinate 125 MG/2 ML INJ IV SCH ×3 (05:09→17:07)
--- NOTE | 2020-09-05 08:05 | Progress Note ---
Assessment and Plan Assessment and plan: This is a 55-year-old male with asthma, nicotine dependence and hypertension who was admitted with asthma exacerbation, acute hypoxic respiratory failure. Acute hypoxic respiratory failure Acute asthma exacerbation Elevated D-dimer Right inguinal hernia Thrombocytosis Leukocytosis (likely secondary to steroid use) -[facility], general surgery consulted, patient recommendations -S/p BiPAP therapy -Wean supplemental oxygenation as tolerated -Pulmonary hygiene -Continue with prednisone with taper -Continue Pulmicort and scheduled DuoNebs -Nicotine patch/Wellbutrin XL -S/p heparin drip, CTA chest canceled -Bilateral lower extremity Doppler ultrasounds negative for DVT -Cardiac diet -Resume home Plavix, lisinopril and titrate as needed -Blood pressure monitor per protocol -Outpatient follow-up for right inguinal hernia -Trend CBC, BMP DVT prophylaxis: SCDs to bilateral lower extremity while in bed, Lovenox subcu Disposition: Transfer to floor Critical care statement The high probability OF a clinically significant sudden or life-threatening deterioration of the cardiorespiratory system and endocrine system required my full and direct attention, intervention and postoperative management. The aggregate critical care time was 30 minutes. The time is in addition to time spent performing reported procedures but includes the followin: Data review and interpretation 2: Patient assessment and monitoring of vital signs 3: Documentation 4:: Medication orders and management Advance Directives: Yes (Full code) History Interval history: This is a 55-year-old male with asthma (requiring intubation x2 for acute exacerbations), nicotine dependence and hypertension who presented to the emergency department on 08/29 complaining of shortness of breath. Upon arrival to the emergency department patient was wheezing and having labored breathing and placed on BiPAP. Patient continued to have increased work of breathing despite nebulizing treatments in the emergency department. CXR did not show any acute findings and labs were unremarkable. Patient was admitted to the hospital service with asthma exacerbation and [facility] and surgery were consulted. 08/29. Patient seen and examined at bedside this morning. Patient is still wheezing. Remains on BiPAP. Increase steroids to 80 mg every 6. Pulmonology consulted. Started patient on albuterol every 4 scheduled. May need to transfer to [facility] if no improve in the next 3 to 4 hours. 08/30. Still remains on BiPAP. Remains on bronchodilators and Solu-Medrol 100 q. 6. Blood pressure elevated so has been started on IV blood pressure medications. Pulmonology is following. Patient may need intubation if not improved. Discussed with security vehicle patrol officer this a.m. He complains of right inguinal pain. Will consult surgery for evaluation. He has no signs of bowel obstruction 08/31: Patient was able to be taken off BiPAP and placed on high flow nasal cannula another time my examination he was on 3 L 60%. Bilateral lower extremity Dopplers are pending. [facility] decreased steroids to 60 every 6. RN attempted trial lying flat in the unit however patient was unable to lay flat without shortness of breath. Nicotine patch given increased to 21 mcg and Wellbutrin started to aid in smoking cessation. 09/01: Overnight the patient had severe anxiety and agitation and was given IV Ativan and has self reported confusion per RN overnight. Patient refused BiPAP therapy overnight and was rested on nasal cannula. This morning patient is high flow nasal cannula at 15 L 40%. [facility] has ordered BID Klonopin as patient takes a lot of xanax at home for anxiety. BLE Doppler negative for DVT and given improved pulmamory status [facility] has stopped heparin gtt put CTA on hold for now. We will restart his home Plavix. Possible transfer to floor tomorrow. Patient has hyperkalemia today and was given Kayexalate. 09/02: Potassium is within normal range, will transfer patient to floor today as he was dang; t be weaned to be weaned to 5 L nasal cannula this morning the time my examination. No acute events reported overnight. Self-reported anxiety and impending doom related to family member who is around patient's current age not surviving hospital stay. Attempted to ease anxiety with therapeutic communication. CTA cancelled. 09/03/2020; and is on 3 L of oxygen. Patient has wheezing all over the chest. Patient in distress and will keep him as inpatient. 09/04/2020; patient was on 2 L of oxygen, patient is in respiratory failure and using abdominal muscles for breathing. Patient has poor airflow. I have explained the patient about his condition and asked him to stay in the hospital patient declined to stay in the hospital. Patient said he is going to sign AMA. 09/05/2020; patient was on 2 L of oxygen. Patient is on IV Solu-Medrol and other asthma/COPD exacerbation medications. Patient is being followed by pulmonary. History Interval history: Patient was seen and evaluated this morning Patient was on 2 L of oxygen Patient is in respiratory distress Hospitalist Physical - Physical exam Narrative exam: Not in cardiopulmonary distress. The patient appeared well nourished and normally developed. Vital signs as documented. Head exam is unremarkable. No scleral icterus . Neck is without jugular venous distension, thyromegaly, or carotid bruits. Lungs wheezing all over the chest, uses abdominal muscles for breathing. Cardiac exam reveals regular rate and Rhythm. Abdominal exam reveals normal bowel sounds, nontender, no organomegaly. Extremities are nonedematous and both femoral and pedal pulses are normal. 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 No focal weakness. - Constitutional Vitals: Temp Pulse Resp BP Pulse Ox 97.4 F L 103 H 18 128/87 97 09/05/20 04:54 09/05/20 04:54 09/05/20 04:54 09/05/20 04:54 09/05/20 04:54 General appearance: Present: no acute distress, well-nourished Results - Labs CBC & Chem 7: 09/04/20 04:56 09/03/20 05:06 Labs: Laboratory Last Values WBC 8.8 K/mm3 (4.5-11.0) 09/03/20 05:06 RBC 4.28 M/mm3 (3.65-5.03) 09/03/20 05:06 Hgb 11.9 gm/dl (11.8-15.2) 09/04/20 04:56 Hct 35.4 % (35.5-45.6) L 09/04/20 04:56 MCV 85 fl (84-94) 09/03/20 05:06 MCH 28 pg (28-32) 09/03/20 05:06 MCHC 33 % (32-34) 09/03/20 05:06 RDW 19.3 % (13.2-15.2) H 09/03/20 05:06 Plt Count 364 K/mm3 (140-440) 09/04/20 04:56 Lymph % (Auto) 6.0 % (13.4-35.0) L 08/30/20 11:25 [place] % (Auto) 7.9 % (0.0-7.3) H 08/30/20 11:25 Eos % (Auto) 0.0 % (0.0-4.3) 08/30/20 11:25 Baso % (Auto) 0.4 % (0.0-1.8) 08/30/20 11:25 Lymph # (Auto) 0.6 K/mm3 (1.2-5.4) L 08/30/20 11:25 [place] # (Auto) 0.8 K/mm3 (0.0-0.8) 08/30/20 11:25 Eos # (Auto) 0.0 K/mm3 (0.0-0.4) 08/30/20 11:25 Baso # (Auto) 0.0 K/mm3 (0.0-0.1) 08/30/20 11:25 Add Manual Diff Complete 08/29/20 00:06 Total Counted 100 08/29/20 00:06 Seg Neutrophils % 85.7 % (40.0-70.0) H 08/30/20 11:25 Seg Neuts % (Manual) 85.0 % (40.0-70.0) H 08/29/20 00:06 Band Neutrophils % 1.0 % 08/29/20 00:06 Lymphocytes % (Manual) 12.0 % (13.4-35.0) L 08/29/20 00:06 Monocytes % (Manual) 2.0 % (0.0-7.3) 08/29/20 00:06 Nucleated RBC % Not Reportable 08/29/20 00:06 Seg Neutrophils # 8.8 K/mm3 (1.8-7.7) H 08/30/20 11:25 Seg Neutrophils # Man 8.2 K/mm3 (1.8-7.7) H 08/29/20 00:06 Band Neutrophils # 0.1 K/mm3 08/29/20 00:06 Lymphocytes # (Manual) 1.2 K/mm3 (1.2-5.4) 08/29/20 00:06 Abs React Lymphs (Man) 0.0 K/mm3 08/29/20 00:06 Monocytes # (Manual) 0.2 K/mm3 (0.0-0.8) 08/29/20 00:06 Eosinophils # (Manual) 0.0 K/mm3 (0.0-0.4) 08/29/20 00:06 Basophils # (Manual) 0.0 K/mm3 (0.0-0.1) 08/29/20 00:06 Metamyelocytes # 0.0 K/mm3 08/29/20 00:06 Myelocytes # 0.0 K/mm3 08/29/20 00:06 Promyelocytes # 0.0 K/mm3 08/29/20 00:06 Blast Cells # 0.0 K/mm3 08/29/20 00:06 WBC Morphology Not Reportable 08/29/20 00:06 Hypersegmented Neuts Not Reportable 08/29/20 00:06 Hyposegmented Neuts Not Reportable 08/29/20 00:06 Hypogranular Neuts Not Reportable 08/29/20 00:06 Smudge Cells Not Reportable 08/29/20 00:06 Toxic Granulation Not Reportable 08/29/20 00:06 Toxic Vacuolation Not Reportable 08/29/20 00:06 Dohle Bodies Not Reportable 08/29/20 00:06 Pelger-Huet Anomaly Not Reportable 08/29/20 00:06 Galo Rods Not Reportable 08/29/20 00:06 Platelet Estimate Consistent w auto 08/29/20 00:06 Clumped Platelets Not Reportable 08/29/20 00:06 Plt Clumps, EDTA Not Reportable 08/29/20 00:06 Large Platelets Not Reportable 08/29/20 00:06 Giant Platelets Not Reportable 08/29/20 00:06 Platelet Satelliting Not Reportable 08/29/20 00:06 Plt Morphology Comment Not Reportable 08/29/20 00:06 RBC Morphology Not Reportable 08/29/20 00:06 Dimorphic RBCs Not Reportable 08/29/20 00:06 Polychromasia Not Reportable 08/29/20 00:06 Hypochromasia Not Reportable 08/29/20 00:06 Poikilocytosis Not Reportable 08/29/20 00:06 Anisocytosis 1+ 08/29/20 00:06 Microcytosis Not Reportable 08/29/20 00:06 Macrocytosis Not Reportable 08/29/20 00:06 Spherocytes Not Reportable 08/29/20 00:06 Pappenheimer Bodies Not Reportable 08/29/20 00:06 Sickle Cells Not Reportable 08/29/20 00:06 Target Cells Not Reportable 08/29/20 00:06 Tear Drop Cells Not Reportable 08/29/20 00:06 Ovalocytes Not Reportable 08/29/20 00:06 Helmet Cells Not Reportable 08/29/20 00:06 [place] Bodies Not Reportable 08/29/20 00:06 [place] Rings Not Reportable 08/29/20 00:06 Ridge Cells Not Reportable 08/29/20 00:06 Bite Cells Not Reportable 08/29/20 00:06 Crenated Cell Not Reportable 08/29/20 00:06 Elliptocytes Not Reportable 08/29/20 00:06 Acanthocytes (Spur) Not Reportable 08/29/20 00:06 Rouleaux Not Reportable 08/29/20 00:06 Hemoglobin C Crystals Not Reportable 08/29/20 00:06 Schistocytes Not Reportable 08/29/20 00:06 Malaria parasites Not Reportable 08/29/20 00:06 Lobo Bodies Not Reportable 08/29/20 00:06 Hem Pathologist Commnt No 08/29/20 00:06 PT 14.0 Sec. (12.2-14.9) 08/30/20 07:10 INR 1.09 (0.87-1.13) 08/30/20 07:10 APTT 34.5 Sec. (24.2-36.6) 08/29/20 18:34 D-Dimer 1038.61 ng/mlDDU (0-234) H 08/29/20 14:02 Heparin Anti-Xa Level 0.57 U.I./ml (0.3-0.7) 08/31/20 18:58 ABG pH 7.393 (7.320-7.450) 08/31/20 10:44 POC ABG pCO2 48.4 mmHg (32.0-48.0) H 08/31/20 10:44 POC ABG pO2 80.0 mmHg (83-108) L 08/31/20 10:44 POC ABG HCO3 28.8 08/31/20 10:44 ABG O2 Saturation 95.3 (0-100) 08/31/20 10:44 POC ABG Base Excess 3.2 08/31/20 10:44 ABG Hemoglobin 13.0 (12.0-17.5) 08/31/20 10:44 ABG Oxyhemoglobin 94.3 (94-98) 08/31/20 10:44 ABG Methemoglobin 0.3 (0.0-1.5) 08/31/20 10:44 ABG Sodium 137.2 mmol/L (136.0-145.0) 08/31/20 10:44 ABG Potassium 4.5 mmol/L (3.40-4.50) 08/31/20 10:44 ABG Chloride 97.0 mmol/L (98-107) L 08/31/20 10:44 ABG Glucose 151 mg/dL (65-95) H 08/31/20 10:44 Carboxyhemoglobin 0.8 (0.5-1.5) 08/31/20 10:44 FiO2 % 50.0 08/31/20 10:44 Sodium 141 mmol/L (137-145) 09/03/20 05:06 Potassium 5.3 mmol/L (3.6-5.0) H 09/03/20 05:06 Chloride 99.7 mmol/L (98-107) 09/03/20 05:06 Carbon Dioxide 35 mmol/L (22-30) H 09/03/20 05:06 Anion Gap 12 mmol/L 09/03/20 05:06 BUN 31 mg/dL (9-20) H 09/03/20 05:06 Creatinine 0.8 mg/dL (0.8-1.3) 09/03/20 05:06 Estimated GFR > 60 ml/min 09/03/20 05:06 BUN/Creatinine Ratio 39 % 09/03/20 05:06 Glucose 135 mg/dL (75-100) H 09/03/20 05:06 POC Glucose 138 mg/dL (70-105) H 08/30/20 17:24 Calcium 9.1 mg/dL (8.4-10.2) 09/03/20 05:06 Ferritin 98.8 ng/mL (30.0-300.0) 08/29/20 18:34 Lactate Dehydrogenase 261 units/L (91-180) H 08/29/20 18:34 C-Reactive Protein 1.50 mg/dL (0.00-1.30) H 08/29/20 18:34 NT-Pro-B Natriuret Pep 483.2 pg/mL (0-900) 08/29/20 14:02 Procalcitonin 0.05 ng/mL (<0.15) 08/29/20 18:34 Arterial Blood Glucose 151 mg/dL (65-95) H 08/31/20 10:44 Arterial Blood Ionized Calcium 5.0 mg/dL (4.6-5.3) 08/31/20 10:44 Coronavirus (PCR) Negative (Negative) 08/29/20 Unknown Reza/IV: Voiding Method Urinal Active Medications - Current Medications Current Medications: Generic Name Dose Route Start Last Admin Trade Name Freq PRN Reason Stop Dose Admin Acetaminophen 650 mg 08/29/20 01:20 Acetaminophen 325 Mg Tab PO Q4H PRN Pain MILD(1-3)/Fever >100.5/ARRIAZA Albuterol 2.5 mg 09/05/20 02:00 09/05/20 02:31 Albuterol 2.5 Mg/3 Ml Nebu IH 2.5 mg Q6HRT CAROLE Administration Budesonide 0.5 mg 08/29/20 08:00 09/04/20 21:14 Budesonide 0.5 Mg/2 Ml Nebu IH 0.5 mg Q12HRT CAROLE Administration Bupropion HCl 150 mg 08/31/20 11:00 09/04/20 09:02 Bupropion Xl 150 Mg Tab PO 150 mg DAILY CAROLE Administration Clonazepam 1 mg 09/01/20 11:00 09/04/20 21:21 Clonazepam 0.5 Mg Tab PO 1 mg BID CAROLE Administration Clopidogrel Bisulfate 75 mg 09/01/20 11:00 09/04/20 09:02 Clopidogrel 75 Mg Tab PO 75 mg QDAY CAROLE Administration Enoxaparin Sodium 40 mg 09/01/20 22:00 09/04/20 21:20 Enoxaparin 40 Mg/0.4 Ml Inj SUB-Q 40 mg QDAY@2200 CAROLE Administration Labetalol HCl 10 mg 08/30/20 09:19 Labetalol 20 Mg/4 Ml Inj IV Q6H PRN SBP >170 or DBP >110 Lisinopril 40 mg 08/29/20 20:00 09/04/20 09:02 Lisinopril 40 Mg Tab PO 40 mg QDAY CARLOE Administration Lorazepam 1 mg 09/01/20 11:00 09/04/20 23:58 Lorazepam 2 Mg/Ml Vial IV 1 mg Q4H PRN Administration Anxiety Magnesium Hydroxide 30 ml 08/29/20 01:20 Magnesium Hydroxide (Mom) Oral Liqd Udc PO Q4H PRN Constipation Methylprednisolone Sodium Succinate 60 mg 08/31/20 12:00 09/05/20 05:09 Methylprednisolone Sod Succinate 125 Mg/2 Ml Inj IV 60 mg Q6H CAROLE Administration Nicotine 21 mg 08/31/20 16:00 09/04/20 09:02 Nicotine 21 Mg/24 Hr Patch TD 21 mg DAILY CAROLE Administration Ondansetron HCl 4 mg 08/29/20 01:20 Ondansetron 4 Mg/2 Ml Inj IV Q8H PRN Nausea And Vomiting Oxycodone/Acetaminophen 1 tab 08/31/20 14:08 09/05/20 05:08 Oxycodone /Acetaminophen 5-325mg Tab PO 1 tab Q6H PRN Administration Pain, Moderate (4-6) Sodium Chloride 10 ml 08/29/20 10:00 09/04/20 21:21 Sodium Chloride 0.9% 10 Ml Flush Syringe IV 10 ml BID CAROLE Administration Sodium Chloride 10 ml 08/29/20 01:20 Sodium Chloride 0.9% 10 Ml Flush Syringe IV PRN PRN LINE FLUSH Nutrition/Malnutrition Assess - Dietary Evaluation Nutrition/Malnutrition Findings: Nutrition Notes Start: 09/04/20 09:58 Freq: Status: Active Protocol: Document 09/04/20 09:58 AT (Rec: 09/04/20 10:00 AT [email or web address]) Co-Sign 09/04/20 09:58 MK Nutrition Notes Need for Assessment generated from: LOS Initial or Follow up Assessment Current Diagnosis COPD,Hypertension,Respiratory Failure Other Pertinent Diagnosis Asthma, SOB Current Diet Cardiac Diet Labs/Tests 09/03 K 5.3 BUN 31 BG 135 Pertinent Medications Pulmicort Solu-Medrol Height 5 ft 3 in Weight 75.7 kg Usual Body Weight 77.27 kg [place] Body Weight (kg) 56.36 BMI 29.5 Intake Prior to Admission Good Weight change and time frame 2% weight loss in one month per pt report Weight Status Overweight Subjective/Other Information Screen for LOS. Pt reports consuming 25% of meals on average while at the hospital due to not liking the foods. Food preferences recorded. Pt denies N/V/D. Pt agreed to try ONS. Pt had labored breathing during assessment. Burn Absent Trauma Absent GI Symptoms None Current % PO Poor (25-49%) Minimum of two criteria No Energy Intake (severe) < or equal to 50% Estimated Energy Requirement > or equal to 5 days #1 Nutrition Diagnosis Inadequate oral intake Etiology COPD As Evidenced by Signs and Symptoms pt reports consuming 25% of meals Is patient on ventilator? No Is Patient Ambulatory and/or Out of Bed Yes REE-([facility]-ambulatory/OOB) [ [id number]] Calculation Used for Recommendations [facility] Additional Notes PRO needs: 61-76g (0.8-1 g/kg) Fluid needs: 1mL/kcal or per MD Nutrition Intervention Change Diet Order: Continue diet as ordered Add Supplement/Snack (indicate name/kcal Ensure Enlive BID /protein ) Provides kCal: 700 Provides Protein (gm) 40 Goal #1 Meet at least 75% EER and protein needs via diet and ONS Anticipated Discharge Needs: Cardiac diet Follow-Up By: 09/07/20 Additional Comments F/U ONS tolerance and stable intakes
[2020-09-05] MEDS: BUDESONIDE 0.5 MG/2 ML NEBU IH SCH ×2 (08:20→20:24)
[2020-09-05] MEDS: LORazepam 2 MG/ML VIAL IV PRN ×3 (08:23→23:15)
[2020-09-05] MEDS: clonazePAM 0.5 MG TAB PO SCH ×2 (09:47→21:59)
[2020-09-05] MEDS: CLOPIDOGREL 75 MG TAB PO SCH (09:48)
[2020-09-05] MEDS: LISINOPRIL 40 MG TAB PO SCH (09:49)
[2020-09-05] MEDS: NICOTINE 21 MG/24 HR PATCH TD SCH (09:50)
[2020-09-05] MEDS: buPROPion XL 150 MG TAB PO SCH (09:59)
--- NOTE | 2020-09-05 12:02 | Event Note ---
Date: 09/05/20 Home O2 evaluation was done, after 15 feet walk patient oxygen dropped to 87%, patient was not ambulating well. I need formal PT evaluation. I discussed with case management about oxygen and his [place], and the company will be open on Monday. We will keep as inpatient.
--- NOTE | 2020-09-05 12:43 | Progress Note ---
Assessment and Plan 55 y/o male with acute exacerbation of COPD and acute respiratory 09/05/20: Patient to discharge on Monday once oxygen arranged. Continue current steroid dosing until discharge and then taper as follows: 60 daily for 4 days, 40 daily for 4 days, then 20 daily for 4 days then 10 daily for 4 days then stop. 09/03/20: Convinced patient to try bipap right now and will wear bipap tonight. RT will adjust settings at bedside now to help with comfort. Will also give a one time dose of lasix to see if this helps with breathing as well. He has been positive since admit but not sure how accurate these numbers are. Will need to continue the high dose steroids so not able to wean today. Will continue to monitor. Will ask nursing to given some anxiolytic therapy prior to placing on bipap tonight. 09/02/20: Stable for transfer to floor today. Continue Klonopin and prn ativan therapy. Wean FiO2 for sats >88%. No CTA needed. Continue nicotine patch and wellbutrin XL. 09/01/20: Continue steroids at current dosing and frequency. Continue Pulmicort and scheduled duonebs. Will try BID klonopin as patient taxes a lot of xanax at home for anxiety. Dopplers' negative and pulm status is improving, will stop heparin and hold on CTA for now. Continue nicotine patch and Wellbutrin XL. Continue ICU care for at least another 24 hours to make sure patient does not get worse. 1. Change steroids to 60q6 2. continue pulmicort BID and scheduled duonebs 3. Limit volume, hold on diuretic therapy for now. 4. Follow up vascular labs to see if VTE is present. If so, no need for CTA and continue anticoagulation. If negative will attempt to lie flat here in unit prior to transport for CTA. 5. Increase patch to 21 and start Wellbutrin 150XL daily as patient requests help with stopping smoking. could move to step down but no beds so can stay in unit until respiratory status is more stable. Maybe ready for transfer out later today vs tomorrow morning. Subjective Date of service: 09/05/20 Interval history: Down to 2 liters with good sats. Failed walk test so needs home O2. Objective Vital Signs - 12hr 09/05/20 09/05/20 09/05/20 00:49 01:50 04:54 Temperature 97.4 F L Pulse Rate 114 H 103 H Pulse Rate [ Bilateral Throughout] Pulse Rate [ From Monitor] Respiratory 24 18 Rate Respiratory Rate [Bilateral Throughout] Blood Pressure 128/87 O2 Sat by Pulse 98 98 97 Oximetry 09/05/20 09/05/20 09/05/20 07:54 08:00 08:35 Temperature 97.5 F L Pulse Rate 105 H Pulse Rate [ 105 H Bilateral Throughout] Pulse Rate [ 99 H From Monitor] Respiratory 20 Rate Respiratory 20 Rate [Bilateral Throughout] Blood Pressure 145/88 O2 Sat by Pulse 99 97 Oximetry 09/05/20 09/05/20 09:49 12:15 Temperature 98.5 F Pulse Rate 105 H 112 H Pulse Rate [ Bilateral Throughout] Pulse Rate [ From Monitor] Respiratory 20 Rate Respiratory Rate [Bilateral Throughout] Blood Pressure 145/88 138/84 O2 Sat by Pulse 92 Oximetry Constitutional: other (on bipap mild to moderate distress) ENT: oropharynx moist Neck: supple Effort: mildly labored Ascultation: Bilateral: diminished breath sounds, wheezes CBC and BMP: 09/04/20 04:56 09/03/20 05:06 ABG, PT/INR, D-dimer: ABG ABG pH 7.393 (7.320-7.450) 08/31/20 10:44 POC ABG pCO2 48.4 mmHg (32.0-48.0) H 08/31/20 10:44 POC ABG pO2 80.0 mmHg (83-108) L 08/31/20 10:44 POC ABG HCO3 28.8 08/31/20 10:44 ABG O2 Saturation 95.3 (0-100) 08/31/20 10:44 PT/INR, D-dimer PT 14.0 Sec. (12.2-14.9) 08/30/20 07:10 INR 1.09 (0.87-1.13) 08/30/20 07:10 D-Dimer 1038.61 ng/mlDDU (0-234) H 08/29/20 14:02 Abnormal lab findings: Abnormal Labs 08/29/20 08/29/20 08/29/20 00:06 00:06 14:02 WBC Hgb Hct MCV 83 L MCH RDW 20.4 H Plt Count 496 H Lymph % (Auto) [place] % (Auto) Lymph # (Auto) Seg Neutrophils % Seg Neuts % (Manual) 85.0 H Lymphocytes % (Manual) 12.0 L Seg Neutrophils # Seg Neutrophils # Man 8.2 H D-Dimer 1038.61 H Heparin Anti-Xa Level ABG pH POC ABG pCO2 POC ABG pO2 ABG Potassium ABG Chloride ABG Glucose Potassium Chloride Carbon Dioxide BUN Glucose 125 H POC Glucose Lactate Dehydrogenase C-Reactive Protein Arterial Blood Glucose 08/29/20 08/29/20 08/30/20 15:05 18:34 00:36 WBC Hgb Hct MCV MCH RDW Plt Count Lymph % (Auto) [place] % (Auto) Lymph # (Auto) Seg Neutrophils % Seg Neuts % (Manual) Lymphocytes % (Manual) Seg Neutrophils # Seg Neutrophils # Man D-Dimer Heparin Anti-Xa Level 1.38 H ABG pH 7.280 L POC ABG pCO2 57.9 H POC ABG pO2 112.1 H ABG Potassium 4.7 H ABG Chloride ABG Glucose 143 H Potassium Chloride Carbon Dioxide BUN Glucose POC Glucose Lactate Dehydrogenase 261 H C-Reactive Protein 1.50 H Arterial Blood Glucose 143 H 08/30/20 08/30/20 08/30/20 07:10 07:10 08:30 WBC Hgb 10.1 L D Hct 30.3 L D MCV MCH RDW 19.8 H Plt Count 560 H 84 L Lymph % (Auto) 7.1 L [place] % (Auto) Lymph # (Auto) 0.7 L Seg Neutrophils % 87.8 H Seg Neuts % (Manual) Lymphocytes % (Manual) Seg Neutrophils # 9.0 H Seg Neutrophils # Man D-Dimer Heparin Anti-Xa Level ABG pH POC ABG pCO2 POC ABG pO2 ABG Potassium ABG Chloride ABG Glucose Potassium Chloride Carbon Dioxide BUN 34 H Glucose 148 H POC Glucose Lactate Dehydrogenase C-Reactive Protein Arterial Blood Glucose 08/30/20 08/30/20 08/30/20 08:44 11:25 12:14 WBC Hgb Hct MCV MCH RDW 19.6 H Plt Count 575 H D Lymph % (Auto) 6.0 L [place] % (Auto) 7.9 H Lymph # (Auto) 0.6 L Seg Neutrophils % 85.7 H Seg Neuts % (Manual) Lymphocytes % (Manual) Seg Neutrophils # 8.8 H Seg Neutrophils # Man D-Dimer Heparin Anti-Xa Level ABG pH 7.309 L POC ABG pCO2 58.5 H POC ABG pO2 ABG Potassium ABG Chloride ABG Glucose 168 H Potassium Chloride Carbon Dioxide BUN Glucose POC Glucose 124 H Lactate Dehydrogenase C-Reactive Protein Arterial Blood Glucose 168 H 08/30/20 08/30/20 08/31/20 16:06 17:24 02:11 WBC Hgb Hct MCV MCH RDW Plt Count 540 H Lymph % (Auto) [place] % (Auto) Lymph # (Auto) Seg Neutrophils % Seg Neuts % (Manual) Lymphocytes % (Manual) Seg Neutrophils # Seg Neutrophils # Man D-Dimer Heparin Anti-Xa Level 0.99 H ABG pH POC ABG pCO2 POC ABG pO2 ABG Potassium ABG Chloride ABG Glucose Potassium Chloride Carbon Dioxide BUN Glucose POC Glucose 138 H Lactate Dehydrogenase C-Reactive Protein Arterial Blood Glucose 08/31/20 08/31/20 08/31/20 02:11 10:44 11:11 WBC Hgb Hct MCV MCH RDW Plt Count Lymph % (Auto) [place] % (Auto) Lymph # (Auto) Seg Neutrophils % Seg Neuts % (Manual) Lymphocytes % (Manual) Seg Neutrophils # Seg Neutrophils # Man D-Dimer Heparin Anti-Xa Level 0.80 H 0.78 H ABG pH POC ABG pCO2 48.4 H POC ABG pO2 80.0 L ABG Potassium ABG Chloride 97.0 L ABG Glucose 151 H Potassium Chloride Carbon Dioxide BUN Glucose POC Glucose Lactate Dehydrogenase C-Reactive Protein Arterial Blood Glucose 151 H 09/01/20 09/01/20 09/02/20 05:00 05:00 05:28 WBC 14.4 H Hgb Hct 35.2 L MCV MCH 27 L RDW 19.7 H Plt Count 508 H Lymph % (Auto) [place] % (Auto) Lymph # (Auto) Seg Neutrophils % Seg Neuts % (Manual) Lymphocytes % (Manual) Seg Neutrophils # Seg Neutrophils # Man D-Dimer Heparin Anti-Xa Level ABG pH POC ABG pCO2 POC ABG pO2 ABG Potassium ABG Chloride ABG Glucose Potassium 5.1 H Chloride 96.4 L Carbon Dioxide 32 H BUN 45 H Glucose 135 H POC Glucose Lactate Dehydrogenase C-Reactive Protein Arterial Blood Glucose 09/02/20 09/03/20 09/03/20 05:28 05:06 05:06 WBC Hgb Hct MCV MCH RDW 19.3 H Plt Count 445 H Lymph % (Auto) [place] % (Auto) Lymph # (Auto) Seg Neutrophils % Seg Neuts % (Manual) Lymphocytes % (Manual) Seg Neutrophils # Seg Neutrophils # Man D-Dimer Heparin Anti-Xa Level ABG pH POC ABG pCO2 POC ABG pO2 ABG Potassium ABG Chloride ABG Glucose Potassium 5.3 H Chloride Carbon Dioxide 37 H 35 H BUN 35 H 31 H Glucose 149 H 135 H POC Glucose Lactate Dehydrogenase C-Reactive Protein Arterial Blood Glucose 09/04/20 04:56 WBC Hgb Hct 35.4 L MCV MCH RDW Plt Count Lymph % (Auto) [place] % (Auto) Lymph # (Auto) Seg Neutrophils % Seg Neuts % (Manual) Lymphocytes % (Manual) Seg Neutrophils # Seg Neutrophils # Man D-Dimer Heparin Anti-Xa Level ABG pH POC ABG pCO2 POC ABG pO2 ABG Potassium ABG Chloride ABG Glucose Potassium Chloride Carbon Dioxide BUN Glucose POC Glucose Lactate Dehydrogenase C-Reactive Protein Arterial Blood Glucose
[2020-09-05] MEDS ORDERED: guaiFENesin ER 600 MG TAB PO ONE (16:00)
[2020-09-05] MEDS: ENOXAPARIN 40 MG/0.4 ML INJ SUB-Q SCH (21:58)
[2020-09-05] MEDS: BENZONATATE 100 MG CAP PO PRN (23:04)
[2020-09-06] MEDS: methylPREDNISolone Sod Succinate 125 MG/2 ML INJ IV SCH ×4 (00:11→18:21)
[2020-09-06] MEDS: LORazepam 2 MG/ML VIAL IV PRN ×3 (04:52→15:51)
[2020-09-06] MEDS ORDERED: IPRATROPIUM/ALBUTEROL SULFATE 3 ML AMPUL.NEB IH ONE (05:29)
[2020-09-06] MEDS: ALBUTEROL 2.5 MG/3 ML NEBU IH SCH ×4 (05:54→22:57)
[2020-09-06] MEDS: oxyCODONE /ACETAMINOPHEN 5-325MG TAB PO PRN ×3 (06:29→18:21)
[2020-09-06 07:07] LABS: Hematocrit 38.1 % (35.5-45.6); Hemoglobin 12.5 gm/dl (11.8-15.2)
[2020-09-06] MEDS: BENZONATATE 100 MG CAP PO PRN ×2 (07:41→15:52)
--- NOTE | 2020-09-06 08:10 | Progress Note ---
Assessment and Plan Assessment and plan: This is a 55-year-old male with asthma, nicotine dependence and hypertension who was admitted with asthma exacerbation, acute hypoxic respiratory failure. Acute hypoxic respiratory failure Acute asthma exacerbation Elevated D-dimer Right inguinal hernia Thrombocytosis Leukocytosis (likely secondary to steroid use) -[facility], general surgery consulted, patient recommendations -S/p BiPAP therapy -Wean supplemental oxygenation as tolerated -Pulmonary hygiene -Continue with prednisone with taper -Continue Pulmicort and scheduled DuoNebs -Nicotine patch/Wellbutrin XL -S/p heparin drip, CTA chest canceled -Bilateral lower extremity Doppler ultrasounds negative for DVT -Cardiac diet -Resume home Plavix, lisinopril and titrate as needed -Blood pressure monitor per protocol -Outpatient follow-up for right inguinal hernia -Trend CBC, BMP DVT prophylaxis: SCDs to bilateral lower extremity while in bed, Lovenox subcu Disposition: Transfer to floor Critical care statement The high probability OF a clinically significant sudden or life-threatening deterioration of the cardiorespiratory system and endocrine system required my full and direct attention, intervention and postoperative management. The aggregate critical care time was 30 minutes. The time is in addition to time spent performing reported procedures but includes the followin: Data review and interpretation 2: Patient assessment and monitoring of vital signs 3: Documentation 4:: Medication orders and management Advance Directives: Yes (Full code) History Interval history: This is a 55-year-old male with asthma (requiring intubation x2 for acute exacerbations), nicotine dependence and hypertension who presented to the emergency department on 08/29 complaining of shortness of breath. Upon arrival to the emergency department patient was wheezing and having labored breathing and placed on BiPAP. Patient continued to have increased work of breathing despite nebulizing treatments in the emergency department. CXR did not show any acute findings and labs were unremarkable. Patient was admitted to the hospital service with asthma exacerbation and [facility] and surgery were consulted. 08/29. Patient seen and examined at bedside this morning. Patient is still wheezing. Remains on BiPAP. Increase steroids to 80 mg every 6. Pulmonology consulted. Started patient on albuterol every 4 scheduled. May need to transfer to [facility] if no improve in the next 3 to 4 hours. 08/30. Still remains on BiPAP. Remains on bronchodilators and Solu-Medrol 100 q. 6. Blood pressure elevated so has been started on IV blood pressure medications. Pulmonology is following. Patient may need intubation if not improved. 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 He complains of right inguinal pain. Will consult surgery for evaluation. He has no signs of bowel obstruction 08/31: Patient was able to be taken off BiPAP and placed on high flow nasal cannula another time my examination he was on 3 L 60%. Bilateral lower extremity Dopplers are pending. [facility] decreased steroids to 60 every 6. RN attempted trial lying flat in the unit however patient was unable to lay flat without shortness of breath. Nicotine patch given increased to 21 mcg and Wellbutrin started to aid in smoking cessation. 09/01: Overnight the patient had severe anxiety and agitation and was given IV Ativan and has self reported confusion per RN overnight. Patient refused BiPAP therapy overnight and was rested on nasal cannula. This morning patient is high flow nasal cannula at 15 L 40%. [facility] has ordered BID Klonopin as patient takes a lot of xanax at home for anxiety. BLE Doppler negative for DVT and given improved pulmamory status [facility] has stopped heparin gtt put CTA on hold for now. We will restart his home Plavix. Possible transfer to floor tomorrow. Patient has hyperkalemia today and was given Kayexalate. 09/02: Potassium is within normal range, will transfer patient to floor today as he was dang; t be weaned to be weaned to 5 L nasal cannula this morning the time my examination. No acute events reported overnight. Self-reported anxiety and impending doom related to family member who is around patient's current age not surviving hospital stay. Attempted to ease anxiety with therapeutic communication. CTA cancelled. 09/03/2020; and is on 3 L of oxygen. Patient has wheezing all over the chest. Patient in distress and will keep him as inpatient. 09/04/2020; patient was on 2 L of oxygen, patient is in respiratory failure and using abdominal muscles for breathing. Patient has poor airflow. I have explained the patient about his condition and asked him to stay in the hospital patient declined to stay in the hospital. Patient said he is going to sign AMA. 09/05/2020; patient was on 2 L of oxygen. Patient is on IV Solu-Medrol and other asthma/COPD exacerbation medications. Patient is being followed by pulmonary. 09/06/2020; patient was evaluated for home oxygen yesterday and his oxygen dropped to 87% after 15 feet walk. Patient need home oxygen. Discussed with case management and she said the patient is [place] of [place] and and could not arrange oxygen on the weekend. Patient will have oxygen arranged on Monday and he can be discharged after that. Patient wants to go home; will do 6-minute walk again today, will follow PT evaluation. If patient doesn't need home oxygen he can be discharged home. History Interval history: Patient was seen and evaluated this morning Patient was on room air Patient wants to go home Hospitalist Physical - Physical exam Narrative exam: Not in cardiopulmonary distress. The patient appeared well nourished and normally developed. Vital signs as documented. Head exam is unremarkable. No scleral icterus . Neck is without jugular venous distension, thyromegaly, or carotid bruits. Lungs wheezing all over the chest. Cardiac exam reveals regular rate and Rhythm. Abdominal exam reveals normal bowel sounds, nontender, no organomegaly. Extremities are nonedematous and both femoral and pedal pulses are normal. NAVIGATION TEACHER: Alert and oriented 3. No focal weakness. - Constitutional Vitals: Temp Pulse Resp BP Pulse Ox 98.0 F 113 H 24 138/88 94 09/06/20 04:06 09/06/20 05:55 09/06/20 05:55 09/06/20 04:06 09/06/20 05:55 General appearance: Present: no acute distress, well-nourished Results - Labs CBC & Chem 7: 09/06/20 05:53 09/03/20 05:06 Labs: Laboratory Last Values WBC 8.8 K/mm3 (4.5-11.0) 09/03/20 05:06 RBC 4.28 M/mm3 (3.65-5.03) 09/03/20 05:06 Hgb 12.5 gm/dl (11.8-15.2) 09/06/20 05:53 Hct 38.1 % (35.5-45.6) 09/06/20 05:53 MCV 85 fl (84-94) 09/03/20 05:06 MCH 28 pg (28-32) 09/03/20 05:06 MCHC 33 % (32-34) 09/03/20 05:06 RDW 19.3 % (13.2-15.2) H 09/03/20 05:06 Plt Count 368 K/mm3 (140-440) 09/06/20 05:53 Lymph % (Auto) 6.0 % (13.4-35.0) L 08/30/20 11:25 [place] % (Auto) 7.9 % (0.0-7.3) H 08/30/20 11:25 Eos % (Auto) 0.0 % (0.0-4.3) 08/30/20 11:25 Baso % (Auto) 0.4 % (0.0-1.8) 08/30/20 11:25 Lymph # (Auto) 0.6 K/mm3 (1.2-5.4) L 08/30/20 11:25 [place] # (Auto) 0.8 K/mm3 (0.0-0.8) 08/30/20 11:25 Eos # (Auto) 0.0 K/mm3 (0.0-0.4) 08/30/20 11:25 Baso # (Auto) 0.0 K/mm3 (0.0-0.1) 08/30/20 11:25 Add Manual Diff Complete 08/29/20 00:06 Total Counted 100 08/29/20 00:06 Seg Neutrophils % 85.7 % (40.0-70.0) H 08/30/20 11:25 Seg Neuts % (Manual) 85.0 % (40.0-70.0) H 08/29/20 00:06 Band Neutrophils % 1.0 % 08/29/20 00:06 Lymphocytes % (Manual) 12.0 % (13.4-35.0) L 08/29/20 00:06 Monocytes % (Manual) 2.0 % (0.0-7.3) 08/29/20 00:06 Nucleated RBC % Not Reportable 08/29/20 00:06 Seg Neutrophils # 8.8 K/mm3 (1.8-7.7) H 08/30/20 11:25 Seg Neutrophils # Man 8.2 K/mm3 (1.8-7.7) H 08/29/20 00:06 Band Neutrophils # 0.1 K/mm3 08/29/20 00:06 Lymphocytes # (Manual) 1.2 K/mm3 (1.2-5.4) 08/29/20 00:06 Abs React Lymphs (Man) 0.0 K/mm3 08/29/20 00:06 Monocytes # (Manual) 0.2 K/mm3 (0.0-0.8) 08/29/20 00:06 Eosinophils # (Manual) 0.0 K/mm3 (0.0-0.4) 08/29/20 00:06 Basophils # (Manual) 0.0 K/mm3 (0.0-0.1) 08/29/20 00:06 Metamyelocytes # 0.0 K/mm3 08/29/20 00:06 Myelocytes # 0.0 K/mm3 08/29/20 00:06 Promyelocytes # 0.0 K/mm3 08/29/20 00:06 Blast Cells # 0.0 K/mm3 08/29/20 00:06 WBC Morphology Not Reportable 08/29/20 00:06 Hypersegmented Neuts Not Reportable 08/29/20 00:06 Hyposegmented Neuts Not Reportable 08/29/20 00:06 Hypogranular Neuts Not Reportable 08/29/20 00:06 Smudge Cells Not Reportable 08/29/20 00:06 Toxic Granulation Not Reportable 08/29/20 00:06 Toxic Vacuolation Not Reportable 08/29/20 00:06 Dohle Bodies Not Reportable 08/29/20 00:06 Pelger-Huet Anomaly Not Reportable 08/29/20 00:06 Galo Rods Not Reportable 08/29/20 00:06 Platelet Estimate Consistent w auto 08/29/20 00:06 Clumped Platelets Not Reportable 08/29/20 00:06 Plt Clumps, EDTA Not Reportable 08/29/20 00:06 Large Platelets Not Reportable 08/29/20 00:06 Giant Platelets Not Reportable 08/29/20 00:06 Platelet Satelliting Not Reportable 08/29/20 00:06 Plt Morphology Comment Not Reportable 08/29/20 00:06 RBC Morphology Not Reportable 08/29/20 00:06 Dimorphic RBCs Not Reportable 08/29/20 00:06 Polychromasia Not Reportable 08/29/20 00:06 Hypochromasia Not Reportable 08/29/20 00:06 Poikilocytosis Not Reportable 08/29/20 00:06 Anisocytosis 1+ 08/29/20 00:06 Microcytosis Not Reportable 08/29/20 00:06 Macrocytosis Not Reportable 08/29/20 00:06 Spherocytes Not Reportable 08/29/20 00:06 Pappenheimer Bodies Not Reportable 08/29/20 00:06 Sickle Cells Not Reportable 08/29/20 00:06 Target Cells Not Reportable 08/29/20 00:06 Tear Drop Cells Not Reportable 08/29/20 00:06 Ovalocytes Not Reportable 08/29/20 00:06 Helmet Cells Not Reportable 08/29/20 00:06 Nieto-Nason Bodies Not Reportable 08/29/20 00:06 Olney Rings Not Reportable 08/29/20 00:06 Nichole Cells Not Reportable 08/29/20 00:06 Bite Cells Not Reportable 08/29/20 00:06 Crenated Cell Not Reportable 08/29/20 00:06 Elliptocytes Not Reportable 08/29/20 00:06 Acanthocytes (Spur) Not Reportable 08/29/20 00:06 Rouleaux Not Reportable 08/29/20 00:06 Hemoglobin C Crystals Not Reportable 08/29/20 00:06 Schistocytes Not Reportable 08/29/20 00:06 Malaria parasites Not Reportable 08/29/20 00:06 Lobo Bodies Not Reportable 08/29/20 00:06 Hem Pathologist Commnt No 08/29/20 00:06 PT 14.0 Sec. (12.2-14.9) 08/30/20 07:10 INR 1.09 (0.87-1.13) 08/30/20 07:10 APTT 34.5 Sec. (24.2-36.6) 08/29/20 18:34 D-Dimer 1038.61 ng/mlDDU (0-234) H 08/29/20 14:02 Heparin Anti-Xa Level 0.57 U.I./ml (0.3-0.7) 08/31/20 18:58 ABG pH 7.393 (7.320-7.450) 08/31/20 10:44 POC ABG pCO2 48.4 mmHg (32.0-48.0) H 08/31/20 10:44 POC ABG pO2 80.0 mmHg (83-108) L 08/31/20 10:44 POC ABG HCO3 28.8 08/31/20 10:44 ABG O2 Saturation 95.3 (0-100) 08/31/20 10:44 POC ABG Base Excess 3.2 08/31/20 10:44 ABG Hemoglobin 13.0 (12.0-17.5) 08/31/20 10:44 ABG Oxyhemoglobin 94.3 (94-98) 08/31/20 10:44 ABG Methemoglobin 0.3 (0.0-1.5) 08/31/20 10:44 ABG Sodium 137.2 mmol/L (136.0-145.0) 08/31/20 10:44 ABG Potassium 4.5 mmol/L (3.40-4.50) 08/31/20 10:44 ABG Chloride 97.0 mmol/L (98-107) L 08/31/20 10:44 ABG Glucose 151 mg/dL (65-95) H 08/31/20 10:44 Carboxyhemoglobin 0.8 (0.5-1.5) 08/31/20 10:44 FiO2 % 50.0 08/31/20 10:44 Sodium 141 mmol/L (137-145) 09/03/20 05:06 Potassium 5.3 mmol/L (3.6-5.0) H 09/03/20 05:06 Chloride 99.7 mmol/L (98-107) 09/03/20 05:06 Carbon Dioxide 35 mmol/L (22-30) H 09/03/20 05:06 Anion Gap 12 mmol/L 09/03/20 05:06 BUN 31 mg/dL (9-20) H 09/03/20 05:06 Creatinine 0.8 mg/dL (0.8-1.3) 09/03/20 05:06 Estimated GFR > 60 ml/min 09/03/20 05:06 BUN/Creatinine Ratio 39 % 09/03/20 05:06 Glucose 135 mg/dL (75-100) H 09/03/20 05:06 POC Glucose 138 mg/dL (70-105) H 08/30/20 17:24 Calcium 9.1 mg/dL (8.4-10.2) 09/03/20 05:06 Ferritin 98.8 ng/mL (30.0-300.0) 08/29/20 18:34 Lactate Dehydrogenase 261 units/L (91-180) H 08/29/20 18:34 C-Reactive Protein 1.50 mg/dL (0.00-1.30) H 08/29/20 18:34 NT-Pro-B Natriuret Pep 483.2 pg/mL (0-900) 08/29/20 14:02 Procalcitonin 0.05 ng/mL (<0.15) 08/29/20 18:34 Arterial Blood Glucose 151 mg/dL (65-95) H 08/31/20 10:44 Arterial Blood Ionized Calcium 5.0 mg/dL (4.6-5.3) 08/31/20 10:44 Coronavirus (PCR) Negative (Negative) 08/29/20 Unknown Reza/IV: Voiding Method Urinal Active Medications - Current Medications Current Medications: Generic Name Dose Route Start Last Admin Trade Name Freq PRN Reason Stop Dose Admin Acetaminophen 650 mg 08/29/20 01:20 09/06/20 07:42 Acetaminophen 325 Mg Tab PO 650 mg Q4H PRN Administration Pain MILD(1-3)/Fever >100.5/ARRIAZA Albuterol 2.5 mg 09/05/20 02:00 09/06/20 05:54 Albuterol 2.5 Mg/3 Ml Nebu IH 2.5 mg Q6HRT CAROLE Administration Benzonatate 100 mg 09/05/20 22:42 09/06/20 07:41 Benzonatate 100 Mg Cap PO 100 mg Q8HR PRN Administration Cough Budesonide 0.5 mg 08/29/20 08:00 09/05/20 20:24 Budesonide 0.5 Mg/2 Ml Nebu IH 0.5 mg Q12HRT CAROLE Administration Bupropion HCl 150 mg 08/31/20 11:00 09/05/20 09:59 Bupropion Xl 150 Mg Tab PO 150 mg DAILY CAROLE Administration Clonazepam 1 mg 09/01/20 11:00 09/05/20 21:59 Clonazepam 0.5 Mg Tab PO 1 mg BID CAROLE Administration Clopidogrel Bisulfate 75 mg 09/01/20 11:00 09/05/20 09:48 Clopidogrel 75 Mg Tab PO 75 mg QDAY CAROLE Administration Enoxaparin Sodium 40 mg 09/01/20 22:00 09/05/20 21:58 Enoxaparin 40 Mg/0.4 Ml Inj SUB-Q 40 mg QDAY@2200 CAROLE Administration Guaifenesin 1,200 mg 09/06/20 10:00 Guaifenesin Er 600 Mg Tab PO BID CAROLE Labetalol HCl 10 mg 08/30/20 09:19 Labetalol 20 Mg/4 Ml Inj IV Q6H PRN SBP >170 or DBP >110 Lisinopril 40 mg 08/29/20 20:00 09/05/20 09:49 Lisinopril 40 Mg Tab PO 40 mg QDAY CAROLE Administration Lorazepam 1 mg 09/01/20 11:00 09/06/20 04:52 Lorazepam 2 Mg/Ml Vial IV 1 mg Q4H PRN Administration Anxiety Magnesium Hydroxide 30 ml 08/29/20 01:20 Magnesium Hydroxide (Mom) Oral Liqd Udc PO Q4H PRN Constipation Methylprednisolone Sodium Succinate 60 mg 08/31/20 12:00 09/06/20 06:29 Methylprednisolone Sod Succinate 125 Mg/2 Ml Inj IV 60 mg Q6H CAROLE Administration Nicotine 21 mg 08/31/20 16:00 09/05/20 09:50 Nicotine 21 Mg/24 Hr Patch TD 21 mg DAILY CAROLE Administration Ondansetron HCl 4 mg 08/29/20 01:20 Ondansetron 4 Mg/2 Ml Inj IV Q8H PRN Nausea And Vomiting Oxycodone/Acetaminophen 1 tab 08/31/20 14:08 09/06/20 06:29 Oxycodone /Acetaminophen 5-325mg Tab PO 1 tab Q6H PRN Administration Pain, Moderate (4-6) Sodium Chloride 10 ml 08/29/20 10:00 09/05/20 21:59 Sodium Chloride 0.9% 10 Ml Flush Syringe IV 10 ml BID CAROLE Administration Sodium Chloride 10 ml 08/29/20 01:20 09/06/20 04:54 Sodium Chloride 0.9% 10 Ml Flush Syringe IV 10 ml PRN PRN Administration LINE FLUSH Nutrition/Malnutrition Assess - Dietary Evaluation Nutrition/Malnutrition Findings: Nutrition Notes Start: 09/04/20 09:58 Freq: Status: Active Protocol: Document 09/04/20 09:58 AT (Rec: 09/04/20 10:00 AT [id number]) Co-Sign 09/04/20 09:58 MK Nutrition Notes Need for Assessment generated from: LOS Initial or Follow up Assessment Current Diagnosis COPD,Hypertension,Respiratory Failure Other Pertinent Diagnosis Asthma, SOB Current Diet Cardiac Diet Labs/Tests 09/03 K 5.3 BUN 31 BG 135 Pertinent Medications Pulmicort Solu-Medrol Height 5 ft 3 in Weight 75.7 kg Usual Body Weight 77.27 kg [place] Body Weight (kg) 56.36 BMI 29.5 Intake Prior to Admission Good Weight change and time frame 2% weight loss in one month per pt report Weight Status Overweight Subjective/Other Information Screen for LOS. Pt reports consuming 25% of meals on average while at the hospital due to not liking the foods. Food preferences recorded. Pt denies N/V/D. Pt agreed to try ONS. Pt had labored breathing during assessment. Burn Absent Trauma Absent GI Symptoms None Current % PO Poor (25-49%) Minimum of two criteria No Energy Intake (severe) < or equal to 50% Estimated Energy Requirement > or equal to 5 days #1 Nutrition Diagnosis Inadequate oral intake Etiology COPD As Evidenced by Signs and Symptoms pt reports consuming 25% of meals Is patient on ventilator? No Is Patient Ambulatory and/or Out of Bed Yes REE-([facility]-ambulatory/OOB) [ 1920.269 [id number]] Calculation Used for Recommendations [facility] Additional Notes PRO needs: 61-76g (0.8-1 g/kg) Fluid needs: 1mL/kcal or per MD Nutrition Intervention Change Diet Order: Continue diet as ordered Add Supplement/Snack (indicate name/kcal Ensure Enlive BID /protein ) Provides kCal: 700 Provides Protein (gm) 40 Goal #1 Meet at least 75% EER and protein needs via diet and ONS Anticipated Discharge Needs: Cardiac diet Follow-Up By: 09/07/20 Additional Comments F/U ONS tolerance and stable intakes
[2020-09-06] MEDS: BUDESONIDE 0.5 MG/2 ML NEBU IH SCH ×2 (08:12→22:57)
[2020-09-06] MEDS: guaiFENesin ER 600 MG TAB PO SCH ×2 (09:14→22:15)
[2020-09-06] MEDS: LISINOPRIL 40 MG TAB PO SCH (09:14)
[2020-09-06] MEDS: buPROPion XL 150 MG TAB PO SCH (09:15)
[2020-09-06] MEDS: NICOTINE 21 MG/24 HR PATCH TD SCH (09:15)
[2020-09-06] MEDS: CLOPIDOGREL 75 MG TAB PO SCH (09:15)
[2020-09-06] MEDS: clonazePAM 0.5 MG TAB PO SCH ×2 (09:15→22:16)
--- NOTE | 2020-09-06 12:31 | Cat Scan Report ---
CTA CHEST WITH CONTRAST INDICATION / CLINICAL INFORMATION: Tachycardia and shortness of breath. TECHNIQUE: Axial CT images were obtained through the chest after injection of IV contrast. 3 plane MIP and/or 3D reconstructions were produced. All CT scans at this location are performed using CT dose reduction f or ALARA by means of automated exposure control. COMPARISON: Chest radiograph dated 08/30/2020. FINDINGS: PULMONARY ARTERIES: No pulmonary emboli. THORACIC AORTA: No significant abnormality. HEART: No significant abnormality. CORONARY ARTERIES: No significant calcification. MEDIASTINUM / EDGAR: No significant abnormality. PLEURA: No pleural effusion. No pneumothorax. LUNGS: No acute air space or interstitial disease. ADDITIONAL FINDINGS: None. UPPER ABDOMEN: No acute findings. SKELETAL STRUCTURES: No significant osseous abnormality. IMPRESSION: 1. No CT evidence for pulmonary embolism. 2. No acute findings. Signer Name: Tk Membreno MD Signed: 09/06/2020 12:26 PM Workstation Name: [id number]
--- NOTE | 2020-09-06 14:40 | Consultation ---
History of Present Illness Consult date: 09/06/20 Consult reason: tachycardia History of present illness: Impression Acute COPD exac [place] abuse PVD on plavix, h/o lower ext bypass Tachycardia now resolved and related to intrinsic lung disease HTN Plan Watchful waiting CTA did not identify any coronary calcifications supportive care for lung disease smoking cessation advised. optimize BP Past History Past Medical History: COPD, hypertension, other (Asthma) Past Surgical History: No surgical history, Other (Left lower extremity bypass surgery) Social history: lives with family, smoking (Current daily smoker) Family history: no significant family history Medications and Allergies Allergies Allergy/AdvReac Type Severity Reaction Status Date / Time No Known Allergies Allergy Verified 08/16/20 23:42 Home Medications Medication Instructions Recorded Confirmed Last Taken Type ALPRAZolam [Xanax TAB] 0.25 mg PO BID PRN 08/29/20 08/29/20 Unknown History Clopidogrel [Plavix] 08/29/20 Unknown History Vitamin D3 08/29/20 Unknown History lisinopriL [Zestril TAB] 40 mg PO QDAY 08/29/20 08/29/20 Unknown History Albuterol Mdi (or & Nicu Only) 2 puff IH QID PRN #8.5 gram 09/06/20 Unknown Rx [ProAir HFA Inhaler] Albuterol Sulfate [Albuterol 0.63% 0.63 mg IH TID PRN #75 ml 09/06/20 Unknown Rx NEBS] Benzonatate [Tessalon Perles] 100 mg PO Q8HR PRN #20 capsule 09/06/20 Unknown Rx Budesonide [Pulmicort Respules] 0.5 mg IH Q12HRT #30 nebu 09/06/20 Unknown Rx buPROPion XL [Wellbutrin XL] 150 mg PO DAILY #30 tablet 09/06/20 Unknown Rx predniSONE 10 mg PO QDAY #65 tab 09/06/20 Unknown Rx Active Meds: Active Medications Acetaminophen (Acetaminophen 325 Mg Tab) 650 mg PO Q4H PRN PRN Reason: Pain MILD(1-3)/Fever >100.5/ARRIAZA Last Admin: 09/06/20 07:42 Dose: 650 mg Documented by: Albuterol (Albuterol 2.5 Mg/3 Ml Nebu) 2.5 mg IH Q6HRT CAROLE Last Admin: 09/06/20 13:35 Dose: 2.5 mg Documented by: Benzonatate (Benzonatate 100 Mg Cap) 100 mg PO Q8HR PRN PRN Reason: Cough Last Admin: 09/06/20 07:41 Dose: 100 mg Documented by: Budesonide (Budesonide 0.5 Mg/2 Ml Nebu) 0.5 mg IH Q12HRT [facility] Last Admin: 09/06/20 08:12 Dose: 0.5 mg Documented by: Bupropion HCl (Bupropion Xl 150 Mg Tab) 150 mg PO DAILY [facility] Last Admin: 09/06/20 09:15 Dose: 150 mg Documented by: Clonazepam (Clonazepam 0.5 Mg Tab) 1 mg PO BID [facility] Last Admin: 09/06/20 09:15 Dose: 1 mg Documented by: Clopidogrel Bisulfate (Clopidogrel 75 Mg Tab) 75 mg PO QDAY [facility] Last Admin: 09/06/20 09:15 Dose: 75 mg Documented by: Enoxaparin Sodium (Enoxaparin 40 Mg/0.4 Ml Inj) 40 mg SUB-Q QDAY@2200 [facility] Last Admin: 09/05/20 21:58 Dose: 40 mg Documented by: Guaifenesin (Guaifenesin Er 600 Mg Tab) 1,200 mg PO BID [facility] Last Admin: 09/06/20 09:14 Dose: 1,200 mg Documented by: Labetalol HCl (Labetalol 20 Mg/4 Ml Inj) 10 mg IV Q6H PRN PRN Reason: SBP >170 or DBP >110 Lisinopril (Lisinopril 40 Mg Tab) 40 mg PO QDAY [facility] Last Admin: 09/06/20 09:14 Dose: 40 mg Documented by: Lorazepam (Lorazepam 2 Mg/Ml Vial) 1 mg IV Q4H PRN PRN Reason: Anxiety Last Admin: 09/06/20 11:05 Dose: 1 mg Documented by: Magnesium Hydroxide (Magnesium Hydroxide (Mom) Oral Liqd Udc) 30 ml PO Q4H PRN PRN Reason: Constipation Methylprednisolone Sodium Succinate (Methylprednisolone Sod Succinate 125 Mg/2 Ml Inj) 60 mg IV Q6H [facility] Last Admin: 09/06/20 12:21 Dose: 60 mg Documented by: Nicotine (Nicotine 21 Mg/24 Hr Patch) 21 mg TD DAILY [facility] Last Admin: 09/06/20 09:15 Dose: 21 mg Documented by: Ondansetron HCl (Ondansetron 4 Mg/2 Ml Inj) 4 mg IV Q8H PRN PRN Reason: Nausea And Vomiting Oxycodone/Acetaminophen (Oxycodone /Acetaminophen 5-325mg Tab) 1 tab PO Q6H PRN PRN Reason: Pain, Moderate (4-6) Last Admin: 09/06/20 12:25 Dose: 1 tab Documented by: Sodium Chloride (Sodium Chloride 0.9% 10 Ml Flush Syringe) 10 ml IV BID CAROLE Last Admin: 09/06/20 09:15 Dose: 10 ml Documented by: Sodium Chloride (Sodium Chloride 0.9% 10 Ml Flush Syringe) 10 ml IV PRN PRN PRN Reason: LINE FLUSH Last Admin: 09/06/20 04:54 Dose: 10 ml Documented by: Review of Systems All systems: negative (in the impression) Physical Examination Vital Signs Resp Pulse Ox 14 98 08/28/20 22:02 08/28/20 22:02 General appearance: no acute distress HEENT: Positive: PERRL Neck: Positive: neck supple Cardiac: Positive: Reg Rate and Rhythm, S1/S2 Lungs: Positive: Normal Breath Sounds Abdomen: Positive: Soft Results 09/06/20 05:53 09/03/20 05:06 CBC 09/06/20 Range/Units 05:53 Hgb 12.5 (11.8-15.2) gm/dl Hct 38.1 (35.5-45.6) % Plt Count 368 (140-440) K/mm3
[2020-09-06] MEDS: ENOXAPARIN 40 MG/0.4 ML INJ SUB-Q SCH (22:17)
[2020-09-07] MEDS: oxyCODONE /ACETAMINOPHEN 5-325MG TAB PO PRN ×2 (00:44→08:11)
[2020-09-07] MEDS: methylPREDNISolone Sod Succinate 125 MG/2 ML INJ IV SCH ×3 (00:45→11:41)
[2020-09-07] MEDS: ALBUTEROL 2.5 MG/3 ML NEBU IH SCH ×3 (04:47→14:05)
[2020-09-07] MEDS: LORazepam 2 MG/ML VIAL IV PRN (05:45)
[2020-09-07] MEDS: guaiFENesin ER 600 MG TAB PO SCH (09:06)
[2020-09-07] MEDS: clonazePAM 0.5 MG TAB PO SCH (09:07)
[2020-09-07] MEDS: LISINOPRIL 40 MG TAB PO SCH (09:07)
[2020-09-07] MEDS: CLOPIDOGREL 75 MG TAB PO SCH (09:07)
[2020-09-07] MEDS: buPROPion XL 150 MG TAB PO SCH (09:08)
[2020-09-07] MEDS: NICOTINE 21 MG/24 HR PATCH TD SCH (09:08)
[2020-09-07] MEDS: BUDESONIDE 0.5 MG/2 ML NEBU IH SCH (09:49)
[2020-09-07] MEDS: BENZONATATE 100 MG CAP PO PRN (11:41)
--- NOTE | 2020-09-07 12:11 | Progress Note ---
Assessment and Plan - Patient Problems (1) Sinus tachycardia Current Visit: Yes Status: Acute Plan to address problem: No specific therapy is indicated for physiologic sinus tachycardia. We will add diltiazem CD 180 mg daily for hypertension management. Subjective Date of service: 09/07/20 Interval history: Patient is comfortably no acute distress in the CCU. He was hospitalized a week ago with COPD exacerbation. Chest x-ray showed a normal size cardiac silhouette with chronic interstitial changes of COPD. Pertinent cardiovascular history includes peripheral vascular disease for which he is on Plavix therapy. Cardiology consultation was requested for the finding of a persistent sinus tachycardia. EKG was a sinus tach with right bundle branch block. Objective Vital Signs Temp Pulse Pulse Pulse Pulse Pulse Resp 09/07/20 10:00 108 H 108 H 108 H 22 09/07/20 09:07 78 09/07/20 04:30 98.6 F 101 H 18 09/06/20 23:50 98.0 F 114 H 18 09/06/20 22:59 108 H 09/06/20 19:43 98.3 F 123 H 18 09/06/20 19:25 121 H 09/06/20 15:43 98.3 F 118 H 20 09/06/20 13:48 95 H 09/06/20 12:23 99.7 F H 121 H 20 Resp BP Pulse Ox 09/07/20 10:00 96 09/07/20 09:07 143/76 09/07/20 04:30 140/80 94 09/06/20 23:50 132/88 97 09/06/20 22:59 18 95 09/06/20 19:43 144/88 93 09/06/20 19:25 09/06/20 15:43 128/81 96 09/06/20 13:48 20 09/06/20 12:23 124/82 94 - Physical Examination General: No Apparent Distress HEENT: Positive: PERRL Neck: Positive: neck supple Lungs: Positive: Decreased Breath Sounds Neuro: Positive: Grossly Intact Abdomen: Positive: Soft Skin: Positive: Clear Extremities: Absent: edema
--- NOTE | 2020-09-07 12:22 | Progress Note ---
Assessment and Plan 55 y/o male with acute exacerbation of COPD and acute respiratory 09/07/20: No objection to discharge. Suggest prolonged steroid taper at discharge (60 dAILY FOR 5 DAYS, 40 DAILY FOR 5 DAYS, THEN 20DAILY FOR 5 THEN 10 DAILY FOR 5 THEN STOP). Agree with repeat 6 minute walk to assess oxygen needs if any and how much he may need 09/04/20: Attempting to convince patient to not leave AMA. Continue current dose of steroid with prn PPV use. Guarded prognosis. 09/03/20: Convinced patient to try bipap right now and will wear bipap tonight. RT will adjust settings at bedside now to help with comfort. Will also give a one time dose of lasix to see if this helps with breathing as well. He has been positive since admit but not sure how accurate these numbers are. Will need to continue the high dose steroids so not able to wean today. Will continue to monitor. Will ask nursing to given some anxiolytic therapy prior to placing on bipap tonight. 09/02/20: Stable for transfer to floor today. Continue Klonopin and prn ativan therapy. Wean FiO2 for sats >88%. No CTA needed. Continue nicotine patch and wellbutrin XL. 09/01/20: Continue steroids at current dosing and frequency. Continue Pulmicort and scheduled duonebs. Will try BID klonopin as patient taxes a lot of xanax at home for anxiety. Dopplers' negative and pulm status is improving, will stop heparin and hold on CTA for now. Continue nicotine patch and Wellbutrin XL. Continue ICU care for at least another 24 hours to make sure patient does not get worse. 1. Change steroids to 60q6 2. continue pulmicort BID and scheduled duonebs 3. Limit volume, hold on diuretic therapy for now. 4. Follow up vascular labs to see if VTE is present. If so, no need for CTA and continue anticoagulation. If negative will attempt to lie flat here in unit prior to transport for CTA. 5. Increase patch to 21 and start Wellbutrin 150XL daily as patient requests help with stopping smoking. could move to step down but no beds so can stay in unit until respiratory status is more stable. Maybe ready for transfer out later today vs tomorrow morning. Subjective Date of service: 09/07/20 Interval history: Appears patient has been weaned to room air. Anxious to go home. Objective Vital Signs - 12hr 09/07/20 09/07/20 09/07/20 04:30 09:07 10:00 Temperature 98.6 F Pulse Rate 101 H 78 Pulse Rate [ 108 H Left Dorsalis Pedis] Pulse Rate [ 108 H Right Dorsalis Pedis] Pulse Rate [ 108 H Right Radial] Respiratory 18 22 Rate Blood Pressure 140/80 143/76 O2 Sat by Pulse 94 96 Oximetry Constitutional: other (on bipap mild to moderate distress) ENT: oropharynx moist Neck: supple Effort: mildly labored Ascultation: Bilateral: diminished breath sounds, wheezes CBC and BMP: 09/06/20 05:53 09/03/20 05:06 ABG, PT/INR, D-dimer: ABG ABG pH 7.393 (7.320-7.450) 08/31/20 10:44 POC ABG pCO2 48.4 mmHg (32.0-48.0) H 08/31/20 10:44 POC ABG pO2 80.0 mmHg (83-108) L 08/31/20 10:44 POC ABG HCO3 28.8 08/31/20 10:44 ABG O2 Saturation 95.3 (0-100) 08/31/20 10:44 PT/INR, D-dimer PT 14.0 Sec. (12.2-14.9) 08/30/20 07:10 INR 1.09 (0.87-1.13) 08/30/20 07:10 D-Dimer 1038.61 ng/mlDDU (0-234) H 08/29/20 14:02 Abnormal lab findings: Abnormal Labs 08/29/20 08/29/20 08/29/20 00:06 00:06 14:02 WBC Hgb Hct MCV 83 L MCH RDW 20.4 H Plt Count 496 H Lymph % (Auto) [place] % (Auto) Lymph # (Auto) Seg Neutrophils % Seg Neuts % (Manual) 85.0 H Lymphocytes % (Manual) 12.0 L Seg Neutrophils # Seg Neutrophils # Man 8.2 H D-Dimer 1038.61 H Heparin Anti-Xa Level ABG pH POC ABG pCO2 POC ABG pO2 ABG Potassium ABG Chloride ABG Glucose Potassium Chloride Carbon Dioxide BUN Glucose 125 H POC Glucose Lactate Dehydrogenase C-Reactive Protein Arterial Blood Glucose 08/29/20 08/29/20 08/30/20 15:05 18:34 00:36 WBC Hgb Hct MCV MCH RDW Plt Count Lymph % (Auto) [place] % (Auto) Lymph # (Auto) Seg Neutrophils % Seg Neuts % (Manual) Lymphocytes % (Manual) Seg Neutrophils # Seg Neutrophils # Man D-Dimer Heparin Anti-Xa Level 1.38 H ABG pH 7.280 L POC ABG pCO2 57.9 H POC ABG pO2 112.1 H ABG Potassium 4.7 H ABG Chloride ABG Glucose 143 H Potassium Chloride Carbon Dioxide BUN Glucose POC Glucose Lactate Dehydrogenase 261 H C-Reactive Protein 1.50 H Arterial Blood Glucose 143 H 08/30/20 08/30/20 08/30/20 07:10 07:10 08:30 WBC Hgb 10.1 L D Hct 30.3 L D MCV MCH RDW 19.8 H Plt Count 560 H 84 L Lymph % (Auto) 7.1 L [place] % (Auto) Lymph # (Auto) 0.7 L Seg Neutrophils % 87.8 H Seg Neuts % (Manual) Lymphocytes % (Manual) Seg Neutrophils # 9.0 H Seg Neutrophils # Man D-Dimer Heparin Anti-Xa Level ABG pH POC ABG pCO2 POC ABG pO2 ABG Potassium ABG Chloride ABG Glucose Potassium Chloride Carbon Dioxide BUN 34 H Glucose 148 H POC Glucose Lactate Dehydrogenase C-Reactive Protein Arterial Blood Glucose 08/30/20 08/30/20 08/30/20 08:44 11:25 12:14 WBC Hgb Hct MCV MCH RDW 19.6 H Plt Count 575 H D Lymph % (Auto) 6.0 L [place] % (Auto) 7.9 H Lymph # (Auto) 0.6 L Seg Neutrophils % 85.7 H Seg Neuts % (Manual) Lymphocytes % (Manual) Seg Neutrophils # 8.8 H Seg Neutrophils # Man D-Dimer Heparin Anti-Xa Level ABG pH 7.309 L POC ABG pCO2 58.5 H POC ABG pO2 ABG Potassium ABG Chloride ABG Glucose 168 H Potassium Chloride Carbon Dioxide BUN Glucose POC Glucose 124 H Lactate Dehydrogenase C-Reactive Protein Arterial Blood Glucose 168 H 08/30/20 08/30/20 08/31/20 16:06 17:24 02:11 WBC Hgb Hct MCV MCH RDW Plt Count 540 H Lymph % (Auto) [place] % (Auto) Lymph # (Auto) Seg Neutrophils % Seg Neuts % (Manual) Lymphocytes % (Manual) Seg Neutrophils # Seg Neutrophils # Man D-Dimer Heparin Anti-Xa Level 0.99 H ABG pH POC ABG pCO2 POC ABG pO2 ABG Potassium ABG Chloride ABG Glucose Potassium Chloride Carbon Dioxide BUN Glucose POC Glucose 138 H Lactate Dehydrogenase C-Reactive Protein Arterial Blood Glucose 08/31/20 08/31/20 08/31/20 02:11 10:44 11:11 WBC Hgb Hct MCV MCH RDW Plt Count Lymph % (Auto) [place] % (Auto) Lymph # (Auto) Seg Neutrophils % Seg Neuts % (Manual) Lymphocytes % (Manual) Seg Neutrophils # Seg Neutrophils # Man D-Dimer Heparin Anti-Xa Level 0.80 H 0.78 H ABG pH POC ABG pCO2 48.4 H POC ABG pO2 80.0 L ABG Potassium ABG Chloride 97.0 L ABG Glucose 151 H Potassium Chloride Carbon Dioxide BUN Glucose POC Glucose Lactate Dehydrogenase C-Reactive Protein Arterial Blood Glucose 151 H 09/01/20 09/01/20 09/02/20 05:00 05:00 05:28 WBC 14.4 H Hgb Hct 35.2 L MCV MCH 27 L RDW 19.7 H Plt Count 508 H Lymph % (Auto) [place] % (Auto) Lymph # (Auto) Seg Neutrophils % Seg Neuts % (Manual) Lymphocytes % (Manual) Seg Neutrophils # Seg Neutrophils # Man D-Dimer Heparin Anti-Xa Level ABG pH POC ABG pCO2 POC ABG pO2 ABG Potassium ABG Chloride ABG Glucose Potassium 5.1 H Chloride 96.4 L Carbon Dioxide 32 H BUN 45 H Glucose 135 H POC Glucose Lactate Dehydrogenase C-Reactive Protein Arterial Blood Glucose 09/02/20 09/03/20 09/03/20 05:28 05:06 05:06 WBC Hgb Hct MCV MCH RDW 19.3 H Plt Count 445 H Lymph % (Auto) [place] % (Auto) Lymph # (Auto) Seg Neutrophils % Seg Neuts % (Manual) Lymphocytes % (Manual) Seg Neutrophils # Seg Neutrophils # Man D-Dimer Heparin Anti-Xa Level ABG pH POC ABG pCO2 POC ABG pO2 ABG Potassium ABG Chloride ABG Glucose Potassium 5.3 H Chloride Carbon Dioxide 37 H 35 H BUN 35 H 31 H Glucose 149 H 135 H POC Glucose Lactate Dehydrogenase C-Reactive Protein Arterial Blood Glucose 09/04/20 04:56 WBC Hgb Hct 35.4 L MCV MCH RDW Plt Count Lymph % (Auto) [place] % (Auto) Lymph # (Auto) Seg Neutrophils % Seg Neuts % (Manual) Lymphocytes % (Manual) Seg Neutrophils # Seg Neutrophils # Man D-Dimer Heparin Anti-Xa Level ABG pH POC ABG pCO2 POC ABG pO2 ABG Potassium ABG Chloride ABG Glucose Potassium Chloride Carbon Dioxide BUN Glucose POC Glucose Lactate Dehydrogenase C-Reactive Protein Arterial Blood Glucose
[2020-09-07] MEDS ORDERED: ALBUTEROL 8.5 GM MDI INHALATION IH PRN (12:39)
[2020-09-07 12:40] VITALS: BP 132/97
--- NOTE | 2020-09-07 12:59 | Discharge Summary ---
Providers - Providers Date of Admission: 08/29/20 01:12 Attending physician: CORY SERRA MD 08/29/20 01:20 Consult to Physician [CONS] Routine Comment: Consulting Provider: FARHEEN CAMPO Physician Instructions: Reason For Exam: Asthma Exac 08/30/20 10:03 Consult to Physician [CONS] Routine Comment: Consulting Provider: APOLINAR BULLARD Physician Instructions: Reason For Exam: Inguinal hernia 09/05/20 10:59 Physical Therapy Evaluation and Treat [CONS] Routine Comment: Reason For Exam: deconditioning 09/06/20 11:40 Consult to Cardiology [CONS] Routine Consulting Provider: SHAHIDA BHAGAT Reason For Exam: tachycardia and abn ekg Primary care physician: FURNACE CHARGER Hospitalization Reason for admission: COPD exacerbation Condition: Fair Hospital course: This is a 55-year-old male with asthma (requiring intubation x2 for acute exacerbations), nicotine dependence and hypertension who presented to the emergency department on 08/29 complaining of shortness of breath. Upon arrival to the emergency department patient was wheezing and having labored breathing and placed on BiPAP. Patient continued to have increased work of breathing despite nebulizing treatments in the emergency department. CXR did not show any acute findings and labs were unremarkable. Patient was admitted to the hospital service with asthma exacerbation and CCM and surgery were consulted. 08/29. Patient seen and examined at bedside this morning. Patient is still wheezing. Remains on BiPAP. Increase steroids to 80 mg every 6. Pulmonology consulted. Started patient on albuterol every 4 scheduled. May need to transfer to [facility] [place] if no improve in the next 3 to 4 hours. 08/30. Still remains on BiPAP. Remains on bronchodilators and Solu-Medrol 100 q. 6. Blood pressure elevated so has been started on IV blood pressure medications. Pulmonology is following. Patient may need intubation if not improved. 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 He complains of right inguinal pain. Will consult surgery for evaluation. He has no signs of bowel obstruction 08/31: Patient was able to be taken off BiPAP and placed on high flow nasal cannula another time my examination he was on 3 L 60%. Bilateral lower extremity Dopplers are pending. [facility] decreased steroids to 60 every 6. RN attempted trial lying flat in the unit however patient was unable to lay flat without shortness of breath. Nicotine patch given increased to 21 mcg and Wellbutrin started to aid in smoking cessation. 09/01: Overnight the patient had severe anxiety and agitation and was given IV Ativan and has self reported confusion per RN overnight. Patient refused BiPAP therapy overnight and was rested on nasal cannula. This morning patient is high flow nasal cannula at 15 L 40%. [facility] has ordered BID Klonopin as patient takes a lot of xanax at home for anxiety. BLE Doppler negative for DVT and given improved pulmamory status [facility] has stopped heparin gtt put CTA on hold for now. We will restart his home Plavix. Possible transfer to floor tomorrow. Patient has hyperkalemia today and was given Kayexalate. 09/02: Potassium is within normal range, will transfer patient to floor today as he was dang; t be weaned to be weaned to 5 L nasal cannula this morning the time my examination. No acute events reported overnight. Self-reported anxiety and impending doom related to family member who is around patient's current age not surviving hospital stay. Attempted to ease anxiety with therapeutic communication. CTA cancelled. 09/03/2020; and is on 3 L of oxygen. Patient has wheezing all over the chest. Patient in distress and will keep him as inpatient. 09/04/2020; patient was on 2 L of oxygen, patient is in respiratory failure and using abdominal muscles for breathing. Patient has poor airflow. I have explained the patient about his condition and asked him to stay in the hospital patient declined to stay in the hospital. Patient said he is going to sign AMA. 09/05/2020; patient was on 2 L of oxygen. Patient is on IV Solu-Medrol and other asthma/COPD exacerbation medications. Patient is being followed by pulmonary. 09/06/2020; patient was evaluated for home oxygen yesterday and his oxygen dropped to 87% after 15 feet walk. Patient need home oxygen. Discussed with case management and she said the patient is out of state and and could not arrange oxygen on the weekend. Patient will have oxygen arranged on Monday and he can be discharged after that. 09/07: Patient this morning still with physiologic tachycardia. He did undergo a 6-minute walk with no need for home oxygen. Did have a decrease in heart rate but his shortness of breath is improved. He continues to smoke 15 minutes of counseling provided to him limited to quit tobacco use he verbalized understanding. He understands need to follow-up with his doctors outpatient. He has a rapid recovery of the tachycardia at rest. Cardiology added diltiazem we will check for improvement of noted hyperkalemia which can be steroid-induced and will be discharged if numbers are improved. Acute hypoxic respiratory failure Acute asthma exacerbation COPD exacerbation Elevated D-dimer Right inguinal hernia Thrombocytosis Sinus tachycardia Hyperkalemia Leukocytosis (likely secondary to steroid use) Disposition: DC-01 TO HOME OR SELFCARE Final Discharge Diagnosis (Prints w/discharge instructions): Acute hypoxic respiratory failure secondary to COPD exacerbation Time spent for discharge: 35 minutes Core Measure Documentation - Palliative Care Palliative Care/ Comfort Measures: Not Applicable - Core Measures Any of the following diagnoses?: none Exam - Physical Exam Narrative exam: VITAL SIGNS: Reviewed. GENERAL: The patient appears normally developed, Vital signs as documented. HEAD: No signs of head trauma. EYES: Pupils are equal. Extraocular motions intact. EARS: Hearing grossly intact. MOUTH: Oropharynx is normal. NECK: No adenopathy, no JVD. CHEST: Chest with diminished breath sounds bilaterally. No wheezes, rales, or rhonchi. CARDIAC: Tachycardia although regular rhythm. S1 and S2, without murmurs, gallops, or rubs. VASCULAR: No Edema. Peripheral pulses normal and equal in all extremities. ABDOMEN: Soft, non tender and non distended. No rebound or guarding, and no masses palpated. Bowel Sounds normal. MUSCULOSKELETAL: Good range of motion of all major joints. Extremities without clubbing, cyanosis or edema. NEUROLOGIC EXAM: Alert and oriented x 3 No focal sensory or strength deficits. Speech normal. Follows commands. PSYCHIATRIC: Mood normal. SKIN: detail exam as documented in skin assessment - Constitutional Vitals: Temp Pulse Resp BP Pulse Ox 98.2 F 132 H 18 132/97 96 09/07/20 11:39 09/07/20 12:39 09/07/20 11:39 09/07/20 12:39 09/07/20 12:38 Plan Activity: advance as tolerated, fall precautions Diet: low fat Special Instructions: record daily weights, record daily BP diary, record blood sugar diary, smoking cessation Follow up with: PRIMARY CARE, [Primary Care Provider] - 3-5 Days BRIANNA ENGEL MD [Staff Physician] - 7 Days BELIA LALA MD [Staff Physician] - 7 Days Prescriptions: Albuterol Sulfate [Albuterol 0.63% NEBS] 0.63 mg IH TID PRN #75 ml PRN Reason: Wheezing dilTIAZem CD [Cardizem CD] 180 mg PO QDAY #30 capsule Nicotine [Habitrol] 21 mg TD DAILY #14 patch clonazePAM [KlonoPIN] 1 mg PO BID #60 tablet predniSONE 10 mg PO QDAY #65 tab Albuterol Mdi (or & Nicu Only) [ProAir HFA Inhaler] 2 puff IH QID PRN #8.5 gram PRN Reason: Shortness Of Breath Budesonide [Pulmicort Respules] 0.5 mg IH Q12HRT #30 nebu Benzonatate [Tessalon Perles] 100 mg PO Q8HR PRN #20 capsule PRN Reason: Cough buPROPion XL [Wellbutrin XL] 150 mg PO DAILY #30 tablet
[2020-09-07] MEDS ORDERED: dilTIAZem CD 180 MG CAP PO SCH (13:00)
--- NOTE | 2020-09-08 10:28 | Electrocardiograph Report ---
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
== END 2020-09-07 15:26 | disposition home or self-care (01) | DRG 189 ==
LOC: ED 23:06 → OBSVTOIN 08-29 01:12 → 3A 08-29 01:12 → CC1 08-30 08:46 → 4A 09-02 15:21
PROVIDERS: ADMIT Internal Medicine Geriatric Medicine; ATTEND Internal Medicine
PROC: 5A09457 Assistance with Respiratory Ventilation, 24-96 Consecutive Hours, Continuous Positive Airway Pressure (ICD-10-PCS; principal; 2020-08-29)
PROC: 4A033R1 Measurement of Arterial Saturation, Peripheral, Percutaneous Approach (ICD-10-PCS; 2020-08-29)
PROC: 5A09457 Assistance with Respiratory Ventilation, 24-96 Consecutive Hours, Continuous Positive Airway Pressure (ICD-10-PCS; 2020-09-03)
DX: J96.01 Acute respiratory failure with hypoxia (principal); Z20.822 Contact with and (suspected) exposure to COVID-19; J45.901 Unspecified asthma with (acute) exacerbation; J20.9 Acute bronchitis, unspecified; J44.1 Chronic obstructive pulmonary disease with (acute) exacerbation; I10 Essential (primary) hypertension; F17.200 Nicotine dependence, unspecified, uncomplicated; E87.5 Hyperkalemia; R79.89 Other specified abnormal findings of blood chemistry; D72.829 Elevated white blood cell count, unspecified; T38.0X5A Adverse effect of glucocorticoids and synthetic analogues, initial encounter; D47.3 Essential (hemorrhagic) thrombocythemia; K40.90 Unilateral inguinal hernia, without obstruction or gangrene, not specified as recurrent; Z79.899 Other long term (current) drug therapy; Z79.891 Long term (current) use of opiate analgesic; Z79.01 Long term (current) use of anticoagulants; Y92.89 Other specified places as the place of occurrence of the external cause
CPT/HCPCS: 36415; 36600; 71045; 71275; 80048; 82728; 82805; 82962; 83615; 83880; 84145; 85007; 85014; 85018; 85025; 85027; 85049; 85379; 85520; 85610; 85730; 86140; 93005; 93970; 94640; 94644; 94660; 96365; 96372; 96375; G0378; J0360; J1644; J1650; J1940; J1956; J2060; J2270; J2920; J2930; J3475; Q9967; U0003